=== PATIENT | female | born 1950 | race Caucasian/White ===

== ENCOUNTER 2023-04-23 14:22 | Outpatient (OUT) | payer MEDICARE, SELFPAY ==
--- NOTE | 2023-04-23 14:26 | MM_ITS ---
Patient Name: SILVANO VINCENT MR#: [id number] : 1950 Exam Date: 04/23/2023 Ordering Doctor: DR TOBIN NEAL D.O. RADIOLOGY REPORT PROCEDURE: MM TOMOSYNTHESIS SCREENING BI COMPARISON: MG MAMM BOB SCRN W CAD DIG, 01/05/2014. MG MAMM SCREEN 3D BOB CAD, 08/14/2020. INDICATIONS: Screening Calculator Name NCI Breast Cancer Risk Assessment Tool 5 Year Breast Cancer Risk 1.50% Lifetime Breast Cancer Risk 4.30% Personal Breast Cancer No Personal Ovarian Cancer No Treatments None Family Cancers None LOCATION: [facility] BREAST COMPOSITION: Heterogeneously dense,which may obscure small masses. FINDINGS: DIAGNOSTIC CATEGORY 2--BENIGN FINDING. NO CHANGE FROM COMPARISON. Scattered benign-appearing nodules are present. Scattered benign-appearing calcifications are present. Scattered benign-appearing lymph nodes are present. RIGHT BREAST: No significant suspicious finding. Linear scar marker LEFT BREAST: No significant suspicious finding. RECOMMENDATIONS: ROUTINE MAMMOGRAM AND CLINICAL EVALUATION IN 12 MONTHS. PLEASE NOTE: A NORMAL MAMMOGRAM DOES NOT EXCLUDE THE POSSIBILITY OF BREAST CANCER. A CLINICALLY SUSPICIOUS PALPABLE LUMP SHOULD BE BIOPSIED. Dictated by: Franky Jacobo MD on 04/24/2023 at 07:57 Approved by: Franky Jacobo MD on 04/24/2023 at 07:59
== END 2023-04-23 14:23 | disposition home or self-care (01) ==
LOC: MAMMO 14:22
PROVIDERS: PCP Internal Medicine; Visit Provider Internal Medicine
DX: Z12.31 Encounter for screening mammogram for malignant neoplasm of breast (principal)
CPT/HCPCS: 77063; 77067

== ENCOUNTER 2025-01-31 08:17 | Outpatient (OUT) | payer MEDICARE, SELFPAY ==
--- NOTE | 2025-01-31 08:24 | MM_ITS ---
Patient Name: SILVANO VINCENT MR#: [id number] : 1950 Exam Date: 01/31/2025 Ordering Doctor: HADLEY GATICA RADIOLOGY REPORT PROCEDURE: MM TOMOSYNTHESIS SCREENING BI COMPARISON: MM TOMOSYNTHESIS SCREENING BI, 04/23/2023. MG MAMM SCREEN 3D BOB CAD, 08/14/2020. MG MAMM BOB SCRN W CAD DIG, 01/05/2014. INDICATIONS: Screening Calculator Name NCI Breast Cancer Risk Assessment Tool 5 Year Breast Cancer Risk 1.50% Lifetime Breast Cancer Risk 3.90% Personal Breast Cancer No Personal Ovarian Cancer No Treatments None Family Cancers None LOCATION: [facility] BREAST COMPOSITION: The breasts are heterogeneously dense, which may obscure small masses. FINDINGS: RIGHT BREAST: FOCAL ASYMMETRY (finding without convex borders usually visible on two orthogonal views), characterized by central mid CC view a. Spot compression LEFT BREAST: FOCAL CALCIFICATIONS, characterized by anterior superior. Spot magnification DIAGNOSTIC CATEGORY 0--INCOMPLETE: NEED ADDITIONAL IMAGING EVALUATION. RECOMMENDATIONS: ADDITIONAL MAMMOGRAPHIC VIEWS REQUIRED: BILATERAL BREASTS - Dictated by: Mitul Freitas DO on 01/31/2025 at 12:30 Approved by: Mitul Freitas DO on 01/31/2025 at 12:39
--- OUTSIDE RECORDS SUMMARY | 2025-01-31 08:32 | XMS_ITS | CCD ---
Author Organization [facility] Care Team Providers Care Customer Service Trainer Name Role Phone VAL, DR RUDD Primary Care Unavailable OLIVERIO, DR JON Correa Admitting Unavailable OLIVERIO, DR JON Correa Attending Unavailable OLIVERIO, DR JON Correa Consulting Unavailable Lolly Del Rio Consulting Unavailable VAL, DR RUDD Admitting Unavailable VALLISA, DR RUDD Attending Unavailable VALONE, DR RUDD Primary Care Unavailable VALONE, DR RUDD Consulting Unavailable ZIEBER, DR ANAYA Correa Consulting Unavailable Laxmi Mao Unavailable Nancy Marquez MD Primary Care Provider Pump CHILD DEVELOPMENT SPECIALIST, Michelle Unavailable Nancy Marquez MD Primary Care Provider Val Bishop DO, Charles L Primary Care Provider MARKUS GRIFFIN Attending Unavailable RUSHER, MARKUS Kaur Referring Unavailable RUSHER, MARKUS Kaur Attending Unavailable PUMP, MICHELLE Attending Unavailable PUMP, MICHELLE Referring Unavailable SARAH, CORA Mota Attending Unavailable PUMP, MICHELLE Referring Unavailable NATALIA VALDEZ Attending Unavailable PUMP, MICHELLE Referring Unavailable LIUDMILA COHN Attending Unavailable PUMP, MICHELLE Referring Unavailable PUMP, MICHELLE Attending Unavailable PUMP, MICHELLE Referring Unavailable PUMP, MICHELLE Referring Unavailable SARAH, CORA Mota Attending Unavailable PUMP, MICHELLE Referring Unavailable HAILEY KIM Attending Unavailable PUMP, MICHELLE Referring Unavailable TATTERSNATALIA TRINIDAD Attending Unavailable PUMP, MICHELLE Referring Unavailable PUMP, MICHELLE Attending Unavailable PUMP, MICHELLE Attending Unavailable LAXMI EVANGELISTA Attending Unavailable PUMP, MICHELLE Referring Unavailable SARAH, CORA Mota Attending Unavailable PUMP, MICHELLE Referring Unavailable SARAH, CORA Mota Attending Unavailable PUMP, MICHELLE Referring Unavailable SARAH, CORA Mota Attending Unavailable PUMP, MICHELLE Referring Unavailable NATALIA VALDEZ Attending Unavailable PUMP, MICHELLE Referring Unavailable LIUDMILA COHN Attending Unavailable PUMP, MICHELLE Referring Unavailable LIUDMILA COHN Attending Unavailable PUMP, MICHELLE Referring Unavailable CORA SMITH Attending Unavailable PUMP, MICHELLE Referring Unavailable TATTERSNATALIA TRINIDAD Attending Unavailable PUMP, MICHELLE Referring Unavailable NATALIA VALDEZ Attending Unavailable PUMP, MICHELLE Referring Unavailable COHN, LIUDMILA Attending Unavailable PUMP, MICHELLE Referring Unavailable COHN, LIUDMILA Attending Unavailable PUMP, MICHELLE Referring Unavailable COHN, LIUDMILA Attending Unavailable PUMP, MICHELLE Referring Unavailable PUMP, MICHELLE Attending Unavailable KORI, MARKUS S Attending Unavailable NANCY MARQUEZ Referring Unavailable RUSHER, MARKUS S Referring Unavailable RUSHER, MARKUS S Attending Unavailable PUMP, MICHELLE Attending Unavailable PUMP, MICHELLE Attending Unavailable Pump COLLOID MILL OPERATOR-PATROL POLICE SERGEANT, Michelle L Primary Care Provider Nancy Marquez MD Primary Care Provider NAY GONZALEZ Referring Unavailable PUMP, MICHELLE L Primary Care Unavailable Allergies Allergy Classification Reported Allergen(s) Allergy Type Date of Onset Reaction(s) Facility Opioid Agonists (1 source) HYDROmorphone Drug Allergy 08-12-2015 [facility] (20 sources) HYDROmorphone; Translations: [HYDROMORPHONE] Drug Allergy 08-03-2023 Itching [facility] Medications Current Medications Medication Drug Class(es) Dates Sig (Normalized) Sig (Original) [id number] 200 actuat albuterol 0.09 mg/actuat metered dose inhaler (20 sources) beta2-Adrenergic Agonist Start: 02-16-2023 albuterol HFA 90 mcg/act inhaler 02/16/2023 Active Start: 02-16-2023 take 2 puff(s) by [facility] every four hours albuterol HFA 90 mcg/act inhaler inhale 2 puffs by mouth and INTO THE LUNGS every 4 hours if needed 02/16/2023 Active Albuterol Active azelastine hydrochloride 0.137 mg/actuat metered dose nasal spray (20 sources) Histamine-1 Receptor Antagonist Start: 12-17-2022 Azelastine HCl 137 MCG/SPRAY solution 12/17/2022 Active Start: 12-17-2022 take 2 spray(s) nasa l route twice daily Azelastine HCl 137 MCG/SPRAY solution instill 2 sprays into each nostril twice a day 12/17/2022 Active b complex vitamins capsule (20 sources) take 1 capsule by mouth once daily b complex vitamins capsule Take 1 capsule by mouth Daily Active biotin 5 mg oral capsule (20 sources) biotin 5000 MCG capsule Take by mouth Active Breyna 160-4.5 MCG/ACT inhaler (20 sources) Start: 2023 take 2 puff(s) by inhalation in the morning Breyna 160-4.5 MCG/ACT inhaler Inhale 2 puffs in the morning and 2 puffs before bedtime. 08/05/2023 Active 60 actuat budesonide 0.16 mg/actuat / formoterol fumarate 0.0045 mg/actuat metered dose inhaler (20 sources) Corticosteroid, beta2-Adrenergic Agonist Start: 2023 take 2 puff(s) by inhalation in the morning Breyna 160-4.5 MCG/ACT inhaler Inhale 2 puffs in the morning and 2 puffs before bedtime. 08/05/2023 Active cholecalciferol 0.05 mg oral capsule (20 sources) Vitamin D cholecalciferol (Vitamin D-3) 50 MCG (1999 UT) capsule Take by mouth Active clobetasol propionate 0.5 mg/ml topical solution (20 sources) Corticosteroid clobetasol (Alexys vate) 0.05 % external solution Apply topically 2 (two) times a day Active dexamethasone 2 mg oral tablet (8 sources) Corticosteroid Start: 2023 End: 2023 take 1 tablet by mouth in the morning dexAMETHasone (Decadron) 2 MG tablet Take 2 mg by mouth in the morning. 10/15/2023 04/09/2024 Discontinued (Therapy completed) ezetimibe 10 mg oral tablet (20 sources) Dietary Cholesterol Absorption Inhibitor End: 2024 take 1 tablet by mouth in the morning ezetimibe (ZETIA) 10 mg tablet Take 1 tablet (10 mg total) by mouth in the morning. Active famotidine 40 mg oral tablet (20 sources) Histamine-2 Receptor Antagonist Start: 2023 take 1 tablet by mouth at bedtime famotidine (Pepcid) 40 MG tablet Take 40 mg by mouth at bedtime 06/04/2023 Active fluticasone propionate 0.05 mg/actuat metered dose nasal spray (20 sources) Corticosteroid Start: 2022 fluticasone (Flonase) 50 MCG/ACT nasal spray 12/17/2022 Active Start: 12-17-2022 take 2 spray(s) nasa l route twice daily fluticasone (Flonase) 50 MCG/ACT nasal spray instill 2 sprays into each nostril twice a day 12/17/2022 Active 30 actuat fluticasone furoate 0.1 mg/actuat / umeclidinium 0.0625 mg/actuat / vilanterol 0.025 mg/actuat dry powder inhaler (20 sources) Anticholinergic, Corticosteroid, beta2-Adrenergic Agonist Start: 04-04-2023 End: 08-20-2024 Trelegy Ellipta 100-62.5-25 MCG/ACT aerosol powder 04/04/2023 08/20/2024 Discontinued (Therapy completed) Start: 04-04-2023 take 1 puff(s) by [facility] once daily Trelegy Ellipta 100-62.5-25 MCG/ACT aerosol powder inhale 1 puff by mouth and INTO THE LUNGS once daily 04/04/2023 Active folic acid 1 mg oral tablet (20 sources) folic acid (Folvite) 1 MG tablet Take by mouth Daily Active meloxicam 15 mg oral tablet (6 sources) Nonsteroidal Anti-inflammatory Drug Start: 06-08-2024 End: 06-29-2024 take 1 tablet by mouth once daily meloxicam (Mobic) 15 MG tablet Indications: Posterior tibial tendinitis of right lower extremity , Sinus tarsi syndrome of right foot Take 1 tablet (15 mg) by mouth Daily for 21 days 21 tablet 06/08/2024 06/29/2024 Active Start: 02-13-2024 End: 03-05-2024 take 1 tablet by mouth once daily meloxicam (Mobic) 15 MG tablet Indications: Plantar fasciitis Take 1 tablet (15 mg) by mouth Daily for 21 days 21 tablet 02/13/2024 03/05/2024 Active methylPREDNISolone (14 sources) Corticosteroid Start: 06-08-2024 methylPREDNISo lone (Medrol Dospak) 4 MG tablets Indications: Posterior tibial tendinitis of right lower extremity , Sinus tarsi syndrome of right foot Take as directed on package. 21 tablet 06/08/2024 Active Start: 12-17-2023 End: 04-09-2024 methylPREDNISolone (Medrol D ospak) 4 MG tablets Indications: Plantar fasciitis Take as directed on package. 21 tablet 12/17/2023 04/09/2024 Discontinued (Therapy completed) Start: 12-17-2023 methylPREDNISo lone (Medrol Dospak) 4 MG tablets Indications: Plantar fasciitis Take as directed on package. 21 tablet 12/17/2023 Active minoxidil 20 mg/ml topical solution (20 sources) Arteriolar Vasodilator minoxidil (Minoxidil for Women) 2 % external solution Apply topically 2 (two) times a day Active montelukast 10 mg oral tablet (20 sources) Leukotriene Receptor Antagonist Start: End: take 1 tablet by mouth once daily montelukast (Singulair) 10 MG tablet Indications: Asthma, unspecified asthma severity, unspecified whether complicated, unspecified whether persistent (HCC) , Seasonal allergies Take 1 tablet (10 mg) by mouth Daily 90 tablet 3 04/09/2024 04/09/2025 Active Singulair Active naproxen sodium 550 mg oral tablet (6 sources) Nonsteroidal Anti-inflammatory Drug Start: 03-30-2019 take 1 tablet by mouth twice daily as needed for pain naproxen sodium (ANAPROX) 550 mg tablet Take 1 tablet (550 mg total) by mouth 2 (two) times a day as needed for pain for up to 20 doses. 20 tablet 03/30/2019 Active pantoprazole 40 mg delayed release oral tablet (20 sources) Proton Pump Inhibitor Start: 10-24-2023 End: 10-19-2024 take 1 tablet by mouth before mealtime pantoprazole (Protonix) 40 MG EC tablet Indications: Gastroesophageal reflux disease without esophagitis Take 1 tablet (40 mg) by mouth in the morning. Take before meals. Do not crush, chew, or split.. 30 tablet 2 07/21/2024 Active predniSONE 10 mg oral tablet (16 sources) Start: 08-20-2024 End: 09-01-2024 take 4 tablets by mouth once daily, then take 3 tablets by mouth once daily, then take 2 tablets by mouth once daily, then take 1 tablet by mouth once daily predniSONE (Deltasone) 10 MG tablet Indications: Back pain of lumbar region with sciatica Take 4 tablets (40 mg) by mouth Daily for 3 days, THEN 3 tablets (30 mg) Daily for 3 days, THEN 2 tablets (20 mg) Daily for 3 days, THEN 1 tablet (10 mg) Daily for 3 days. 30 tablet 08/20/2024 09/01/2024 Active Start: 07-26-2024 End: 08-07-2024 take 4 tablets by mouth once daily, then take 3 tablets by mouth once daily, then take 2 tablets by mouth once daily, then take 1 tablet by mouth once daily predniSONE (Deltasone) 10 MG tablet Indications: Acute pain of right shoulder Take 4 tablets (40 mg) by mouth Daily for 3 days, THEN 3 tablets (30 mg) Daily for 3 days, THEN 2 tablets (20 mg) Daily for 3 days, THEN 1 tablet (10 mg) Daily for 3 days. 30 tablet 07/26/2024 08/07/2024 Active Start: 04-09-2024 End: 04-21-2024 take 4 tablets by mouth once daily, then take 3 tablets by mouth once daily, then take 2 tablets by mouth once daily, then take 1 tablet by mouth once daily predniSONE (Deltasone) 10 MG tablet Indications: Plantar fasciitis Take 4 tablets (40 mg) by mouth Daily for 3 days, THEN 3 tablets (30 mg) Daily for 3 days, THEN 2 tablets (20 mg) Daily for 3 days, THEN 1 tablet (10 mg) Daily for 3 days. 30 tablet 04/09/2024 04/21/2024 Active Start: 02-13-2024 End: 04-09-2024 predniSONE (Deltasone) 10 MG tablet Indications: Plantar fasciitis Take twice daily for 5 days, then take once daily for 5 days. 15 tablet 02/13/2024 04/09/2024 Discontinued (Therapy completed) RABEprazole sodium 20 mg delayed release oral tablet (6 sources) Proton Pump Inhibitor take 1 tablet by mouth in the morning RABEprazole (ACIPHEX) 20 mg EC tablet Take 1 tablet (20 mg total) by mouth in the morning. Active rosuvastatin calcium 5 mg oral tablet (5 sources) HMG-CoA Reductase Inhibitor Start: 10-07-19 25 End: 10-07-19 26 take 1 tablet by mouth once daily rosuvastatin (Crestor) 5 MG tablet Indications: Atherosclerosis of arteries , Elevated lipoprotein(a) Take 1 tablet (5 mg) by mouth Daily 90 tablet 3 10/06/2024 10/06/2025 Active Rosuvastatin Paco cium Active tiZANidine 4 mg oral tablet (20 sources) Central alpha-2 Adrenergic Agonist Start: 08-20-2024 End: 08-30-2024 take 1 tablet by mouth three times daily as needed for muscle spasms tiZANidine (Zanaflex) 4 MG tablet Indications: Back pain of lumbar region with sciatica Take 1 tablet (4 mg) by mouth 3 (three) times a day as needed for muscle spasms for up to 10 days 30 tablet 08/20/2024 Active Zinc Sulfate (20 sources) Zinc Sulfate (ZI NC 15 PO) Take by mouth Active Completed/Discontinued Medications Medication Drug Class(es) Dates Sig (Normalized) Sig (Original) 1 ml denosumab 60 mg/ml prefilled syringe (20 sources) RANK Ligand Inhibitor Start: 01-03-2025 End: 01-03-2025 60 mg, subcutaneous, Once, On Fri01/03/25 at 1315, For 1 dose, Bring to room temp (15-30min) in original container. Give sub-Q in upper arm, upper thigh, or abdomen. Start: 05-26-2024 End: 05-26-2024 denosumab (Prolia) injection 60 mg Start: 05-26-2024 End: 05-26-2024 inject 60 mg by subcutaneous injection once 60 mg, Subcutaneous, Once, On Fri05/26/24 at 1600, For 1 dose Start: 05-20-2024 inject 1 mL by subcu taneous injection once denosumab (Prolia) 60 MG/ML solution prefilled syringe Indications: Age-related osteoporosis without current pathological fracture Inject 1 mL (60 mg) under the skin 1 (one) time for 1 dose 1 mL 05/20/2024 Active End: 05-20-2024 denosumab (PROLIA) 60 mg/mL syringe injection every 6 (six) months. Active 2 ml ketorolac tromethamine 30 mg/ml cartridge (4 sources) Nonsteroidal Anti-inflammatory Drug, Cyclooxygenase Inhibitor Start: 08-20-2024 End: 08-20-2024 60 mg, Intramuscular, Once, On Fri08/20/24 at 0930, For 1 dose, Max daily dose: 120 mg. Max duration: 5 days total Start: 08-20-2024 End: 08-20-2024 ketorolac (Toradol) injectio n 60 mg Start: 08-20-2024 End: 08-20-2024 60 mg, Intramuscular, Once, On Fri08/20/24 at 0930, For 1 dose, Max daily dose: 120 mg. Max duration: 5 days total Start: 08-20-2024 End: 08-20-2024 ketorolac (Toradol) injectio n 60 mg Problems Active Problems Problem Classification Problem Date Documented Date Episodic/Chronic Abdominal pain (6 sources) Right lower quadrant pain; Translations: [Right flank pain] Onset: 10-19-2020 Episodic Acquired foot deformities (4 sources) Acquired varus deformity of right ankle; Translations: [Valgus deformity, not elsewhere classified, right ankle] 06-08-2024 Episodic Asthma (20 sources) Asthma; Translations: [Unspecified asthma, uncomplicated] Onset: 03-15-2003 10-21-2023 Chronic Calculus of urinary tract (20 sources) Personal history of urinary calculi; Translations: [Kidney stone] Onset: 10-23-2020 03-26-2024 Episodic Cardiac dysrhythmias (20 sources) Atrial fibrillation; Translations: [Unspecified atrial fibrillation] Onset: 03-15-2003 10-21-2023 Chronic Coagulation and hemorrhagic disorders (2 sources) Thrombophilia; Translations: [Other thrombophilia] 04-09-2024 Chronic Disorders of lipid metabolism (20 sources) Hyperlipidemia; Translations: [Hyperlipidemia, unspecified] Onset: 03-26-2024 03-26-2024 Chronic Diverticulosis and diverticulitis (1 source) Diverticulosis of large intestine without perforation or abscess without bleeding; Translations: [DVRTCLOS LG INT NO PERF/ABSC W/O BL] Onset: 10-23-2020 Chronic Esophageal disorders (20 sources) Gastro-esophageal reflux disease without esophagitis; Translations: [Gastroesophageal reflux disease without esophagitis] Onset: 10-23-2020 10-24-2023 Chronic Headache; including migraine (20 sources) Migraine; Translations: [Migraine, unspecified, not intractable, without status migrainosus] 03-26-2024 Chronic Immunizations and screening for infectious disease (2 sources) Contact with and (suspected) exposure to other viral communicable diseases; Translations: [Contact with and (suspected) exposure to other viral communicable diseases] Episodic Miscellaneous mental health disorders (2 sources) Primary insomnia; Translations: [Primary insomnia] 04-09-2024 Chronic Osteoporosis (20 sources) Age-related osteoporosis without current pathological fracture; Translations: [Osteoporosis] Onset: 08-21-2020 03-26-2024 Chronic Other acquired deformities (2 sources) Equinus contracture of the ankle; Translations: [Contracture, right ankle] 02-13-2024 Chronic Other connective tissue disease (4 sources) Plantar fasciitis; Translations: [Plantar fascial fibromatosis] 04-09-2024 Episodic Other connective tissue disease (2 sources) Pain in right foot; Translations: [Pain in right foot] 02-13-2024 Episodic Other connective tissue disease (4 sources) Tendinitis of right posterior tibial tendon; Translations: [Posterior tibial tendinitis, right leg] 06-08-2024 Episodic Other lower respiratory disease (2 sources) Interstitial lung disease; Translations: [Interstitial pulmonary disease, unspecified] 10-06-2024 Chronic Other nervous system disorders (2 sources) Difficulty walking; Translations: [Difficulty in walking, not elsewhere classified] 06-08-2024 Chronic Other non-traumatic joint disorders (2 sources) Sinus tarsi syndrome of right ankle; Translations: [Pain in right ankle and joints of right foot] 06-08-2024 Episodic Other non-traumatic joint disorders (4 sources) Instability of joint of right ankle; Translations: [Other instability, right ankle] 06-08-2024 Episodic Other screening for suspected conditions (not mental disorders or infectious disease) (2 sources) Plain X-ray result abnormal; Translations: [Abnormal findings on diagnostic imaging of other specified body structures] 08-20-2024 Chronic Other screening for suspected conditions (not mental disorders or infectious disease) (4 sources) Encounter for screening mammogram for malignant neoplasm of breast; Translations: [Patient encounter status] Onset: 08-21-2020 03-03-2024 Episodic Other skin disorders (1 source) Telogen effluvium; Translations: [Telogen effluvium] 03-04-2024 Episodic Other upper respiratory disease (20 sources) Seasonal allergy; Translations: [Other seasonal allergic rhinitis] Onset: 04-09-2024 04-09-2024 Chronic Peripheral and visceral atherosclerosis (20 sources) Atherosclerosis of aorta; Translations: [Atherosclerosis of aorta] Onset: 03-26-2024 03-26-2024 Chronic Residual codes; unclassified (4 sources) Asymptomatic menopausal state; Translations: [ASYMPTOMATIC MENOPAUSAL STATE] Onset: 08-14-2020 Episodic Residual codes; unclassified (2 sources) Postmenopausal state; Translations: [Asymptomatic menopausal state] 04-09-2024 Episodic Spondylosis; intervertebral disc disorders; other back problems (20 sources) Spondylosis; Translations: [Spondylosis, unspecified] Onset: 03-26-2024 03-26-2024 Chronic Thyroid disorders (20 sources) Hyperthyroidism; Translations: [Thyrotoxicosis, unspecified without thyrotoxic crisis or storm] 03-26-2024 Chronic Unclassified (1 source) Injection Onset: 01-03-2025 Past or Other Problems Problem Classification Problem Date Documented Da te Episodic/Chronic Cardiac dysrhythmias (20 sources) Palpitations; Translations: [Palpitations] Onset: 03-15-2003 10-21-2023 Episodic Conditions associated with dizziness or vertigo (20 sources) Benign paroxysmal positional vertigo; Translations: [Benign paroxysmal vertigo, right ear] Onset: 12-01-2023 Resolved: 05-26-2024 12-01-2023 Episodic Joint disorders and dislocations; trauma-related (20 sources) Derangement of right knee; Translations: [Unspecified internal derangement of right knee] Onset: 10-21-2023 Resolved: 10-24-2023 10-24-2023 Chronic Other connective tissue disease (20 sources) Disorder of head; Translations: [Other enthesopathies, not elsewhere classified] Onset: 03-26-2024 03-26-2024 Episodic Other connective tissue disease (20 sources) Muscle pain; Translations: [Myalgia, unspecified site] Onset: 03-26-2024 03-26-2024 Episodic Other gastrointestinal disorders (20 sources) Stool DNA-based colorectal cancer screening positive; Translations: [Other fecal abnormalities] Onset: 03-26-2024 Resolved: 04-09-2024 03-26-2024 Episodic Other non-traumatic joint disorders (20 sources) Pain in right shoulder; Translations: [Pain in joint, shoulder region] Onset: 07-28-2024 07-28-2024 Episodic Residual codes; unclassified (20 sources) Insomnia; Translations: [Insomnia, unspecified] Onset: 03-15-2003 10-21-2023 Episodic Spondylosis; intervertebral disc disorders; other back problems (20 sources) Cervical radiculopathy; Translations: [Radiculopathy, cervical region] Onset: 07-28-2024 07-28-2024 Episodic Viral infection (1 source) COVID-19 Results Test Name Value Interpretation Reference Range Facility CT ABDOMEN PELVIS WO IV CONT Laura 08-26-2024 CT ABDOMEN PELVIS WO IV CONTRAST EXAM: CT Abdomen Pelvis without IV Contrast. REASON FOR EXAM: Right sided low abdominal pain with hematuria, frequent urination. COMPARISON: CT abdomen and pelvis August 03, 2023. TECHNIQUE: Multiplanar noncontrast images of the abdomen and pelvis were obtained. FINDINGS: Lung bases, base of the heart, pericardium: 5 mm groundglass nodule right medial lung base unchanged. Liver: No abnormalities by CT. Gallbladder/ Biliary tree: No calcified stones or ductal dilatation. Spleen, pancreas: No abnormalities by CT. Adrenals, kidneys: No abnormalities by CT. Retroperitoneum: Atherosclerosis of the aorta. Scattered subcentimeter noncalcified retroperitoneal lymph nodes. No ureteral dilatation or visible stone. Small bowel: No dilatation, air-fluid level, free air or ascites is present. Appendix: Multiple appendicoliths in a nondistended appendix. Large Bowel: Moderate amount of stool present throughout the course of the colon. Mild diverticulosis coli of the sigmoid colon. No inflammatory changes. Pelvis: Bladder is without focal abnormality. Gynecologic: The uterus and adnexa are not enlarged. Osseous structures, regional soft tissues: Mild lumbar spondylosis. Phlebolithic type calcifications in the pelvis. IMPRESSION CT Abdomen: 1. No CT evidence of nephrolithiasis or obstructive uropathy. 2. Atherosclerosis. 3. Subtle 5 mm groundglass opacity in the right medial basilar lung. This is unchanged from previous. Follow-up based on Fleischner criteria below. 4. Obstipation of the colon. 5. Diverticulosis coli. Fleischner 2017 guidelines Solid nodules Solitary nodule size: <6 mm * low risk patients: no follow-up needed * high risk patients: optional CT at 12 months Solitary nodule size: 6-8 mm * low risk patients: follow-up at 6-12 months, then consider further follow-up at 18-24 months * high risk patients: initial follow-up CT at 6-12 months and then at 18-24 months if no change Solitary nodule size: >8 mm * either low or high risk patients * consider follow-up CT at 3 months, and/or CT-PET, and/or biopsy Multiple nodules size: <6 mm * low risk patients: no routine follow-up * high risk patients: optional CT at 12 months Multiple nodules size: 6-8 mm * low risk patients: follow-up at 3-6 months, then consider further follow-up at 18-24 months * high risk patients: follow-up at 3-6 months, then at 18-24 months if no change Multiple nodules size: >8 mm * low risk patients: follow-up at 3-6 months, then consider further follow-up at 18-24 months * high risk patients: follow-up at 3-6 months, then at 18-24 months if no change Note: newly detected indeterminate nodule in persons 35 years of age or older. * low risk patients: minimal or absent history of smoking and or other known risk factors * high risk patients: history of smoking or of other known risk factors (e.g. first degree relative with lung cancer, or exposure to asbestos, radon, uranium) * if a nodule up to 8 mm is partly solid or is ground glass further follow-up is required after 24 months to exclude possible slow growing adenocarcinoma (LEOBARDO) Subsolid nodules Solitary pure ground-glass nodule * nodule size <6mm * no CT follow-up required * nodule size e6mm * follow up CT at 6-12 months, then every 2 years until 5 years Solitary part-solid nodule * nodule size <6mm * no CT follow-up required * nodule size e6mm * follow-up CT at 3-6 months * if unchanged, and solid component remains <6mm, then annual follow-up for 5 years Multiple subsolid nodules * nodule size <6mm * follow-up CT at 3-6 months * consider further follow-up at 2 and 4 years if stable * nodule size e6mm * follow-up CT at 3-6 months * subsequent management based on the most suspicious nodule(s) All CT scans at this institution are performed using dose optimization techniques as appropriate for the performed exam including the following: Automated exposure control Adjustment of the mA and/or kV according to patient size Use of iterative reconstruction technique This report is generated using voice recognition reporting (ONE Change). On occasion, [employer] erroneously drops words from the report or replaces the spoken word with a similar sounding word. Please call with any questions/concerns regarding the report. Dictated and transcribed 08/27/2024tm This report has been electronically signed and approved by the interpreting radiologist. Normal Not Available XR LUMBAR SPINE 4+ VIEWS WIT H FLEXION EXTENSIONon 08-20-2024 XR LUMBAR SPINE 4+ VIEWS WITH FLEXION EXTENSION EXAM: XR Lumbar Spine with Flexion Extension, Seven Views. REASON FOR EXAM: Pain bilateral sciatic area, right side pain, pain radiates into bilateral legs. COMPARISON: None FINDINGS: Seven images. For counting purposes, there are five nonrib-bearing type lumbar vertebral bodies. The pedicles are symmetric. The sacral struts and sacroiliac joints are preserved. Facet arthrosis from L3-L4 to L5-S1. No spondylolysis. There is anterolisthesis of approximately 2 to 3 mm of L3 on L4 and L4 on L5. There is no height loss or angulation. Mild anterior spurring from L3-L5. Atherosclerosis noted. There is no significant change in position from neutral to flexion. Slight reduction at L3-L4 and L4-L5 in extension. Vague densities over the right renal shadow are present in the frontal view. These do not persist on the oblique or other views likely prominent costochondral calcifications or nephroliths. IMPRESSION Lumbar Spine: 1. Spondylosis. Grade 1 spondylolisthesis of L3 on L4 and L4 on L5. 2. Possible right nephrolithiasis. IMPRESSION Flexion and Extension: There is slight reduction, 1 to 2 mm of motion, of spondylolisthesis at L3-L4 and L4-L5. This report is generated using voice recognition reporting (ONE Change). On occasion, [employer] erroneously drops words from the report or replaces the spoken word with a similar sounding word. Please call with any questions/concerns regarding the report. Dictated and transcribed 08/20/2024/ This report has been electronically signed and approved by the interpreting radiologist. Normal Not Available XR SHOULDER 2+ VIEWS RIGHTon 07-26-2024 XR SHOULDER 2+ VIEWS RIGHT EXAM: XR SHOULDER 2+ VIEWS RIGHT REASON FOR STUDY: Chronic right shoulder pain, no injury COMPARISON: None FINDINGS: Alignment: Appropriate Joint spaces: Mild joint space narrowing at the acromioclavicular joint. 2 mm subluxation superiorly at the distal clavicle. The glenohumeral joint appears normal. Fractures: None Soft Tissues: No apparent soft tissue abnormality. Mild sclerosis at the distal right first rib at the costochondral junction. IMPRESSION: Mild degenerative changes of the acromioclavicular joint and slight superior subluxation of the distal clavicle measuring 2 mm. Dictated on: 07/26/2024 8:53 AM This report has been electronically signed and approved by the interpreting Radiologist. Normal Not Available XR Foot - right 3 [facility] Result: AP, lateral oblique, lateral views are weight-bearing. Decreased calcaneal inclination, increased talar declination. Decreased bone mineral density. Approximately 40 percent talar head uncoverage. No fractures or dislocations noted. There is some joint space narrowing and subchondral sclerosis of the posterior subtalar joint. Small enthesophyte at the insertion of the plantar fascia. Polybioticscar e Radiology Study observation (narrative) Sodbuster COVID + FLU Quick Testingon 07-07-2022 SARS-CoV-2 (COVID-19) RNA STEVEN+probe Ql (Unsp spec) Positive [facility] Other COVID + FLU Quick Testing Negative [facility] Other MRI Knee w/o Righton MRI Knee w/o Right History: Anterior medial knee pain. Internal derangement. Technique: Multiplanar multisequence MRI of the knee was performed without contrast. Comparison: Radiograph since the knee 02/13/2022 Findings: Quadriceps and patellar tendons are intact. Small joint effusion. Anterior and posterior cruciate ligaments are intact. The medial collateral ligament, lateral collateral ligament, and popliteus myotendinous unit are intact. There is an 8 mm calcification superficial to the proximal most fibers of the medial collateral ligament with mild adjacent soft tissue edema. Horizontal tear of the body through posterior horn of the medial meniscus. Horizontal tear of the body of the lateral meniscus. Small focus of subcortical bone marrow edema of the superior median patellar ridge secondary to a few tiny full-thickness cartilage defects. Popliteal fossa structures are intact. Bess's cyst measures approximately 2.5 cm in AP dimension by 2 cm in transverse dimension by 7 cm in craniocaudal dimension. IMPRESSION: Horizontal tear of the body through posterior horn of the medial meniscus. Horizontal tear of the body of the lateral meniscus. There is an 8 mm calcification superficial to the proximal most fibers of the medial collateral ligament with mild adjacent soft tissue edema. Report reported and signed by Vikash Aviles on 02/21/2022 1054 Normal [facility] CBC AUTO DIFFon 10-19-2020 BASO # 0.1 103/ul Normal 0.0-0.1 [facility] Comment on above: Performed By: #### C BC #### [facility] [address] [id number] Neelam Lisa Basophils/100 WBC (Bld) 0.7 % Normal 0.2-2.0 [facility] Comment on above: Performed By: #### C BC #### [facility] [address] [place], [place] [id number] Neelam Lisa EO # 0.2 103/ul Normal 0.0-0.7 [facility] Comment on above: Performed By: #### C BC #### [facility] [address] [id number] Neelam Lisa Eosinophils/100 WBC (Bld) 3.3 % Normal 0.9-7.0 [facility] Comment on above: Performed By: #### C BC #### [facility] [address] [place], [place] [id number] Neelam Lisa Erythrocyte distribution width (RBC) [Ratio] 13.9 % Normal 11.0-15.0 [facility] Comment on above: Performed By: #### C BC #### [facility] [address] [id number] Neelam Lisa Hematocrit (Bld) [Volume fraction] 38.4 % Normal 36.0-48.0 [facility] Comment on above: Performed By: #### C BC #### [facility] [address] [place], [place] [address] Neelam Lisa Hemoglobin (Bld) [Mass/Vol] 12.5 g/dL Normal 12.0-16.0 [facility] Comment on above: Performed By: #### C BC #### [facility] [address] [id number] Neelam Lisa IG # 0.01 10e3/ul Normal 0.00-0.03 [facility] Comment on above: Performed By: #### C BC #### [facility] [address] [address] Neelam Lisa IG % 0.1 % Normal 0.0-0.5 [facility] Comment on above: Performed By: #### C BC #### [facility] [address] [place] [address] Neelam Lisa LYMPH # 3.4 103/ul Normal 1.2-3.8 [facility] Comment on above: Performed By: #### C BC #### [facility] [address] [place] [address] Neelam Lisa Lymphocytes/100 WBC (Bld) 48.7 % Normal 20.5-60.0 [facility] Comment on above: Performed By: #### C BC #### [facility] [address] [place] [address] Neelam Lisa MANUAL DIFF REQ NO Normal [facility] Comment on above: Performed By: #### C BC #### [facility] [address] [place] [address] Neelam Lisa MCH (RBC) [Entitic mass] 29.0 pg Normal 26.7-34.0 [facility] Comment on above: Performed By: #### C BC #### [facility] [address] [place] [address] Neelam Lisa MCHC (RBC) [Mass/Vol] 32.6 g/dL Normal 29.9-35.2 [facility] Comment on above: Performed By: #### C BC #### [facility] [address] [place] [address] Neelam Lisa MCV (RBC) [Entitic vol] 89.1 fL Normal 81.0-99.0 [facility] Comment on above: Performed By: #### C BC #### [facility] [address] [place], [place] [id number] Neelamdana Lyonen MONO # 0.6 103/ul Normal 0.3-0.8 [facility] Comment on above: Performed By: #### C BC #### [facility] [address] [place], [place] [id number] Neelam Lyonen Monocytes/100 WBC (Bld) 8.4 % Normal 1.7-12.0 [facility] Comment on above: Performed By: #### C BC #### [facility] [address] [place], [place] [id number] Neelam Lisa NEUT # 2.7 103/ul Normal 1.4-6.5 [facility] Comment on above: Performed By: #### C BC #### [facility] [address] [place], [place] [id number] Neelam Lyonen Neutrophils/100 WBC (Bld) 38.8 % Critically low 43.0-75.0 [facility] Comment on above: Performed By: #### C BC #### [facility] [address] [place], [place] [id number] Neelamdana Gonzlaez Platelet mean volume (Bld) [Entitic vol] 9.3 fL Critically low 9.5-13.5 [facility] Comment on above: Performed By: #### C BC #### [facility] [address] [place], [place] [address] Neelam Lisa PLT 324 103/ul Normal 150-450 [facility] Comment on above: Performed By: #### C BC #### [facility] [address] [place], [place] [address] Neelam Lisa RBC 4.31 106/ul Normal 4.20-5.40 [facility] Comment on above: Performed By: #### C BC #### [facility] [address] [place], [place] [address] Neelam Lisa WBC 6.9 103/ul Normal 4.0-11.0 [facility] Comment on above: Performed By: #### C BC #### [facility] [address] [place], [place] [id number] Neelam Lisa CT ABD/PELVIS WO CONon 10-19 CT ABD/PELVIS WO CON EXAM: CT ABD/PELVIS WO CON REASON FOR EXAM: Female, 70 years, CALCULUS OF KIDNEY. TECHNIQUE: Computed tomography of the abdomen and pelvis is performed in the axial projection from the lung bases to the pubic symphysis. Sagittal and coronal reconstructed images are performed. Dose reduction techniques were achieved by using automated exposure control and/or adjustment of mA and/or KVP according to patient size and/or use of iterative reconstruction technique. Study was performed without IV contrast. Study was performed without oral contrast. COMPARISON: 10/23/2011 FINDINGS: Lung bases: The lung bases are clear. There is no pleural effusion. The visualized portions of the heart are unremarkable. The lack of intravenous contrast slightly limits evaluation of the solid abdominal organs. Liver: The liver is normal. Gallbladder: The gallbladder is normal. Spleen: The spleen is normal. There is a small splenule. Pancreas: The pancreas is normal. Adrenal glands: The adrenal glands are normal bilaterally. Right kidney: The kidney is normal in size. There is no renal calculus or hydronephrosis. Left kidney: The kidney is normal in size. There is no renal calculus or hydronephrosis. Stomach: The stomach is normal. Small bowel: The small bowel is normal. Large bowel: There are colon diverticula, without surrounding inflammatory changes. Appendix: There has been an appendectomy. Aorta: There are mild atherosclerotic calcifications of the abdominal aorta. IVC: The IVC is normal. Retroperitoneum: Normal retroperitoneum. Bladder: The bladder is normal. Pelvic organs: The uterus is atrophic. Abdominal wall: Normal abdominal wall. Osseous structures: Normal bony structures. IMPRESSION: No bowel obstruction or acute renal pathology. There appears to have been an appendectomy. Mild diverticulosis, without acute diverticulitis. Electronically authenticated by: LOLLY DEL RIO Date: 2020-10-19 20:52 Normal [facility] ER URINE PROFILEon 1 Bilirubin Ql (U) Negative Normal NEGATIVE [facility] Comment on above: Performed By: #### U MICRO, ERUR #### [facility] [address] [place], [place] [address] Neelam Gonzalez Clarity (U) CLEAR Normal CLEAR [facility] Comment on above: Performed By: #### U MICRO, ERUR #### [facility] [address] [place] [address] Neelam Lisa Color (U) LT. YELLOW Normal YELLOW [facility] Comment on above: Performed By: #### U MICRO, ERUR #### [facility] [address] [place] [address] Neelam Lisa ERUAHD A micrscopic examination will be performed if indicated. Normal [facility] Comment on above: Performed By: #### U MICRO, ERUR #### [facility] [address] [place] [address] Neelam Lisa Glucose Ql (U) Negative Normal NEGATIVE [facility] Comment on above: Performed By: #### U MICRO, ERUR #### [facility] [address] [place] [address] Neelam Lisa Hemoglobin Ql (U) Negative Normal NEGATIVE [facility] Comment on above: Performed By: #### U MICRO, ERUR #### [facility] [address] [place] [address] Neelam Lisa Ketones Ql (U) Negative Normal NEGATIVE [facility] Comment on above: Performed By: #### U MICRO, ERUR #### [facility] [address] [place] [address] Neelam Lisa LEUKOCYTES TRACE Abnormal NEGATIVE [facility] Comment on above: Performed By: #### U MICRO, ERUR #### [facility] [address] [place] [address] Neelam Lisa Nitrite Ql (U) Negative Normal NEGATIVE [facility] Comment on above: Performed By: #### U MICRO, ERUR #### [facility] [address] [place] [address] Neelam Lisa pH (U) 6.0 [pH] Normal 5-9 [facility] Comment on above: Performed By: #### U MICRO, ERUR #### [facility] [address] [place] [address] Neelam Lisa SPEC GRAVITY <=1.005 Abnormal 1.005-<=1.025 [facility] Comment on above: Performed By: #### U MICRO, ERUR #### [facility] [address] [place] [address] Neelamdana Lyonen UA PROTEIN Negative Normal NEGATIVE/ TRACE [facility] Comment on above: Performed By: #### U MICRO, ERUR #### [facility] [address] [place] [address] Neelamdana Lyonen UR MICRO IND INDICATED Normal [facility] Comment on above: Performed By: #### U MICRO, ERUR #### [facility] [address] [place], [place] [address] Neelam Gonzalez Urobilinogen Qn (U) 0.2 {Sánchez'U}/dL Normal 0.2 - 1.0 [facility] Comment on above: Performed By: #### U MICRO, ERUR #### [facility] [address] [place] [address] Neelam Gonzalez PROF 14(COMP METB)on 021 Albumin [Mass/Vol] 4.1 g/dL Normal 3.5-5.0 [facility] Comment on above: Performed By: #### C MP #### [facility] [address] [place], [place] [address] Neelamdana Gonzalez Albumin/Globulin [Mass ratio] 1.2 {ratio} Normal [facility] Comment on above: Performed By: #### C MP #### [facility] [address] [place] [address] Neelam Lisa ALP [Catalytic activity/Vol] 68 U/L Normal 38-126 [facility] Comment on above: Performed By: #### C MP #### [facility] [address] [place] [address] Neelam Lisa ALT [Catalytic activity/Vol] 28 U/L Normal 9-52 [facility] Comment on above: Performed By: #### C MP #### [facility] [address] [place] [address] Neelam Lisa Anion gap [Moles/Vol] 14.8 mmol/L Normal [facility] Comment on above: Performed By: #### C MP #### [facility] [address] [place] [address] Neelam Lisa AST [Catalytic activity/Vol] 17 U/L Normal 14-36 [facility] Comment on above: Performed By: #### C MP #### [facility] [address] [id number] Neelam Lisa Bilirubin [Mass/Vol] 0.2 mg/dL Normal 0.2-1.3 [facility] Comment on above: Performed By: #### C MP #### [facility] [address] [id number] Neelam Lisa Calcium [Mass/Vol] 9.2 mg/dL Normal 8.4-10.2 [facility] Comment on above: Performed By: #### C MP #### [facility] [address] [address] Neelam Lisa Chloride [Moles/Vol] 108 mmol/L Critically high 98-107 [facility] Comment on above: Performed By: #### C MP #### [facility] [address] [address] Neelam Lisa CO2 [Moles/Vol] 26.8 mmol/L Normal 22.0-30.0 [facility] Comment on above: Performed By: #### C MP #### [facility] [address] [id number] Neelam Lisa Creatinine [Mass/Vol] 0.79 mg/dL Normal 0.52-1.04 [facility] Comment on above: Performed By: #### C MP #### [facility] [address] [address] Neelam Lisa EGFR-AF VINCENTIAN >60 Normal >=60 [facility] Comment on above: Performed By: #### C MP #### [facility] [address] [id number] Neelam Lisa EGFR-NON AF VINCENTIAN >60 Normal >=60 [facility] Comment on above: Performed By: #### C MP #### [facility] [address] [id number] Neelam Lisa Globulin (S) [Mass/Vol] 3.4 g/dL Normal [facility] Comment on above: Performed By: #### C MP #### [facility] [address] [id number] Neelam Lisa Glucose [Mass/Vol] 119 mg/dL Critically high 74-106 [facility] Comment on above: Performed By: #### C MP #### [facility] [address] [place], [place] [address] Neelam Lisa Potassium [Moles/Vol] 3.6 mmol/L Normal 3.4-5.0 [facility] Comment on above: Performed By: #### C MP #### [facility] [address] [place] [address] Neelam Lisa Protein [Mass/Vol] 7.5 g/dL Normal 6.1-8.2 [facility] Comment on above: Performed By: #### C MP #### [facility] [address] [place] [address] Neelam Lisa Sodium [Moles/Vol] 146 mmol/L Critically high 137-145 [facility] Comment on above: Performed By: #### C MP #### [facility] [address] [place] [address] Neelam Lisa Urea nitrogen [Mass/Vol] 13.0 mg/dL Normal 7.0-17.0 [facility] Comment on above: Performed By: #### C MP #### [facility] [address] [place], [place] [address] Neelam Lisa Urea nitrogen/Creatini ne [Mass ratio] 16.5 mg/mg Normal [facility] Comment on above: Performed By: #### C MP #### [facility] [address] [place], [place] [address] Neelam Lisa URINE MICROSCOPIC ONLYon BACTERIA TRACE Abnormal NONE SEEN [facility] Comment on above: Performed By: #### U MICRO, ERUR #### [facility] [address] [place], [place] [address] Neelam Lisa Bacteria identified Cx Nom (U) NOT INDICATED Normal [facility] Comment on above: Performed By: #### U MICRO, ERUR #### [facility] [address] [place], [place] [address] Neelam Lisa CAST NONE SEEN Normal NONE SEEN [facility] Comment on above: Performed By: #### U MICRO, ERUR #### [facility] [address] [address] Neelam Lisa Crystals LM Nom (Urine sed) NONE SEEN Normal NONE SEEN [facility] Comment on above: Performed By: #### U MICRO, ERUR #### [facility] [address] [id number] Neelam Lisa Epithelial cells LM Ql (Urine sed) RARE Normal NONE SEEN /RARE [facility] Comment on above: Performed By: #### U MICRO, ERUR #### [facility] [address] [place], [place] [address] Neelam Lisa MUCOUS NONE SEEN Normal NONE SEEN [facility] Comment on above: Performed By: #### U MICRO, ERUR #### [facility] [address] [place], [place] [address] Neelam Lisa RBC NONE SEEN Abnormal 0-2 [facility] Comment on above: Performed By: #### U MICRO, ERUR #### [facility] [address] [id number] Neelam Lisa WBC 0-2 Abnormal NONE SEEN [facility] Comment on above: Performed By: #### U MICRO, ERUR #### [facility] [address] [id number] Neelam Lisa MG MAMM SCREEN 3D MACIEL CADon 08-14-2020 MG MAMM SCREEN 3D MACIEL CAD Patient: VERO VINCENT Exam Date: 08/14/2020 : 1950 Gender:F Ordering : DR JUAN NEAL D.O. Admission #: [id number] Family : Order #: [id number] CLICK HERE TO VIEW EXAM RADIOLOGY REPORT PROCEDURE: MAMMOGRAM SCREENING 3D BILATERAL CAD COMPARISON: MG MAMM MACIEL SCRN W CAD DIG, 01/05/2014. INDICATIONS: Screening mammography Calculator Name NCI Breast Cancer Risk Assessment Tool 5 Year Breast Cancer Risk 1.40% Lifetime Breast Cancer Risk 5.00% Personal Breast Cancer No Personal Ovarian Cancer No Treatments None Family Cancers None LOCATION: [facility] BREAST COMPOSITION: Heterogeneously dense, which may obscure small masses. FINDINGS: DIAGNOSTIC CATEGORY 2--BENIGN FINDING: RIGHT BREAST: No significant suspicious finding. Scattered benign-appearing calcifications are present. No significant change has occurred. LEFT BREAST: No significant suspicious finding. Scattered benign-appearing calcifications are present. No significant change has occurred. RECOMMENDATIONS: ROUTINE MAMMOGRAM AND CLINICAL EVALUATION IN 12 MONTHS. PLEASE NOTE: A NORMAL MAMMOGRAM DOES NOT EXCLUDE THE POSSIBILITY OF BREAST CANCER. A CLINICALLY SUSPICIOUS PALPABLE LUMP SHOULD BE BIOPSIED. Dictated by: Anaya Toledo M.D. on 08/14/2020 at 16:21 Approved by: Anaya Toledo M.D. on 08/14/2020 at 16:26 Normal [facility] XR DEXA BONE DENSITYon 08-14 XR DEXA BONE DENSITY EXAMINATION: XR DEXA BONE DENSITY HISTORY: Screening for osteoporosis COMPARISON: No relevant comparison available. TECHNIQUE: Dual-energy X-ray absorptiometry (DXA) was performed. FINDINGS: SPINE ANALYSIS: Average bone mineral density is 0.931 g/cm2. T-score (standard deviation relative to young adult mean): -2.1 . HIP ANALYSIS: Lowest bone mineral density is within the right femoral trochanter, 0.5-0 g/cm2. T-score (standard deviation relative to young adult mean): -2.9 . IMPRESSION: [employer] Classification: Osteoporosis - High Fracture Risk Electronically authenticated by: ANAYA TOLEDO Date: 2020-08-14 10:37 Normal [facility] Vital Signs Date Time Vital Sign Value Performing Clinician Facility 01-03-2025 13:02-0400 Body mass index (BMI) [Ratio] 23.47 kg/m2 Pfo 5 [facility] 01-03-2025 13:02-0400 [facility] temperature 97.7 [degF[facility] 01-03-2025 13:02-0400 Body weight 66.95 kg Pfo 5 [facility] 01-03-2025 13:02-0400 Diastolic blood pressure 56 mm[Hg] Pfo 5 [facility] 01-03-2025 13:02-0400 Heart rate 84 /min Pfo 5 [facility] 01-03-2025 13:02-0400 Respiratory rate 16 /min Pfo 5 [facility] 01-03-2025 13:02-0400 SaO2% (BldA) [Mass fraction] 98 % Pfo 5 [facility] 01-03-2025 13:02-0400 Systolic blood pressure 135 mm[Hg] Pfo 5 [facility] 10-06-2024 10:02-0400 Diastolic blood pressure 78 mm[Hg] Michelle Pump CHILD DEVELOPMENT SPECIALIST Work Phone: [facility] 10-06-2024 10:02-0400 Systolic blood pressure 120 mm[Hg] Michelle Pump CHILD DEVELOPMENT SPECIALIST Work Phone: [facility] 10-06-2024 09:40-0400 Heart rate 92 /min Michelle Pump CHILD DEVELOPMENT SPECIALIST Work Phone: [facility] 08-20-2024 08:36-0400 Diastolic blood pressure 90 mm[Hg] Michelle Pump CHILD DEVELOPMENT SPECIALIST Work Phone: [facility] 08-20-2024 08:36-0400 Heart rate 92 /min Michelle Pump CHILD DEVELOPMENT SPECIALIST Work Phone: [facility] 08-20-2024 08:36-0400 Systolic blood pressure 124 mm[Hg] Michelle Pump CHILD DEVELOPMENT SPECIALIST Work Phone: [facility] 07-06-2024 14:46-0500 Body height 167.6 cm Markus Rusher DPM Work Phone: [facility] 07-06-2024 14:46-0500 Body mass index (BMI) [Ratio] 23.4 kg/m2 Markus Rusher DPM Work Phone: [facility] 07-06-2024 14:46-0500 Body weight 65.77 kg Markus Rusher DPM Work Phone: [facility] 06-08-2024 14:54-0500 Body height 167.6 cm Markus Rusher DPM Work Phone: [facility] 06-08-2024 14:54-0500 Body mass index (BMI) [Ratio] 23.4 kg/m2 Markus Rusher DPM Work Phone: [facility] 06-08-2024 14:54-0500 Body weight 65.77 kg Markus Rusher DPM Work Phone: [facility] 05-26-2024 15:34-0500 Diastolic blood pressure 84 mm[Hg] Michelle Pump CHILD DEVELOPMENT SPECIALIST Work Phone: [facility] 05-26-2024 15:34-0500 Heart rate 76 /min Michelle Pump CHILD DEVELOPMENT SPECIALIST Work Phone: [facility] 05-26-2024 15:34-0500 Systolic blood pressure 130 mm[Hg] Michelle Pump CHILD DEVELOPMENT SPECIALIST Work Phone: [facility] 04-09-2024 08:19-0500 Body height 166.4 cm Michelle Pump CHILD DEVELOPMENT SPECIALIST Work Phone: [facility] 04-09-2024 08:19-0500 Body mass index (BMI) [Ratio] 23.83 kg/m2 Michelle Pump CHILD DEVELOPMENT SPECIALIST Work Phone: [facility] 04-09-2024 08:19-0500 Body weight 65.95 kg Michelle Pump CHILD DEVELOPMENT SPECIALIST Work Phone: [facility] 04-09-2024 08:19-0500 Diastolic blood pressure 72 mm[Hg] Michelle Pump CHILD DEVELOPMENT SPECIALIST Work Phone: [facility] 04-09-2024 08:19-0500 Heart rate 76 /min Michelle Pump CHILD DEVELOPMENT SPECIALIST Work Phone: [facility] 04-09-2024 08:19-0500 Systolic blood pressure 132 mm[Hg] Michelle Pump CHILD DEVELOPMENT SPECIALIST Work Phone: [facility] 02-13-2024 08:55-0400 Body height 167.6 cm Markus Griffin DPM Work Phone: [facility] 02-13-2024 08:55-0400 Body mass index (BMI) [Ratio] 23.15 kg/m2 Markus Griffin DPM Work Phone: [facility] 02-13-2024 08:55-0400 Body weight 65.05 kg Markus Griffin DPM Work Phone: [facility] 07-07-2022 09:50-0500 Body height 170.18 cm Laxmi Mao Other [facility] Other 07-07-2022 09:50-0500 Body mass index (BMI) [Ratio] 21.77 kg/m2 Laxmi Mao Other [facility] Other 07-07-2022 09:50-0500 Body temperature 99.5 [degF] Laxmi Mao Other [facility] Other 07-07-2022 09:50-0500 Body weight 63.05 kg Laxmi Mao Other [facility] Other 07-07-2022 09:50-0500 Diastolic blood pressure 75 mm[Hg] Laxmi Mao Other [facility] Other 07-07-2022 09:50-0500 Respiratory rate 18 /min Laxmi Mao Other [facility] Other 07-07-2022 09:50-0500 SaO2% (BldA) [Mass fraction] 97 % Laxmi Mao Other [facility] Other 07-07-2022 09:50-0500 Systolic blood pressure 130 mm[Hg] Laxmi Mao Other [facility] Other Encounters Encounter Date Encounter Type Care Provider Facility Start: 01-03-2025 End: 01-03-2025 [facility] Comment on above: Senile osteoporosis (Primary Dx) Start: 12-30-2024 End: 12-30-2024 Orders Only Nay Gonzalez APRN-PATROL POLICE SERGEANT Work Phone: INTER[facility] Comment on above: Encounter for prepro cedural laboratory examination Start: 12-30-2024 End: 12-30-2024 Patient encounter status Nay Gonzalez COLLOID MILL OPERATOR-PATROL POLICE SERGEANT Work Phone: [facility] Start: 12-23-2024 End: 12-23-2024 Telephone encounter Nancy Marquez MD Other Phone: [facility] Start: 12-07-2024 End: 12-07-2024 Telephone encounter Nancy Marquez MD Other Phone: [facility] Start: 12-02-2024 End: 12-02-2024 Orders Only Nay Gonzalez COLLOID MILL OPERATOR-PATROL POLICE SERGEANT Work Phone: [facility] - [facility] Oncology Comment on above: Senile osteoporosis (Primary Dx) Start: 10-06-2024 End: 10-06-2024 Bamboo flowsheet Michelle Pump CHILD DEVELOPMENT SPECIALIST Work Phone: [facility] Start: 10-06-2024 End: 10-06-2024 Bamboo flowsheet Michelle Pump CHILD DEVELOPMENT SPECIALIST Work Phone: [facility] Start: 10-06-2024 End: 10-06-2024 Office outpatient visit 15 minutes Michelle Pump CHILD DEVELOPMENT SPECIALIST Work Phone: [facility] Comment on above: Atherosclerosis of a rteries (Primary Dx); Atherosclerosis of aorta (CMS/HCC); Elevated lipoprotein(a) (CMS/HCC); Atrial fibrillation, unspecified type (CMS/HCC); Age-related osteoporosis without current pathological fracture (CMS/HCC); Lumbar radiculopathy, acute; Interstitial pulmonary disease, unspecified Start: 10-06-2024 End: 10-06-2024 ambulatory MICHELLE PUMP Not Available Start: 10-01-2024 End: 10-01-2024 Bamboo flowsheet Liudmila Cohn CLEAN ROOM ASSEMBLER Work Phone: [facility] Start: 10-01-2024 End: 10-01-2024 Bamboo flowsheet Liudmila Cohn CLEAN ROOM ASSEMBLER Work Phone: [facility] Start: 10-01-2024 End: 10-01-2024 ambulatory Liudmila Cohn CLEAN ROOM ASSEMBLER Work Phone: [facility] Comment on above: Lumbar radiculopathy , acute (Primary Dx) Start: 09-29-2024 End: 09-29-2024 Bamboo flowssantiago Cohn CLEAN ROOM ASSEMBLER Work Phone: [facility] Start: 09-29-2024 End: 09-29-2024 Bamboo flowssantiago Cohn CLEAN ROOM ASSEMBLER Work Phone: [facility] Start: 09-29-2024 End: 09-29-2024 ambulatory Liudmila Cohn CLEAN ROOM ASSEMBLER Work Phone: [facility] Comment on above: Lumbar radiculopathy , acute (Primary Dx) Start: 09-27-2024 End: 09-27-2024 Bamboo nancy Cohn CLEAN ROOM ASSEMBLER Work Phone: [facility] Start: 09-27-2024 End: 09-27-2024 Bamboo flowssantiago Cohn CLEAN ROOM ASSEMBLER Work Phone: [facility] Start: 09-27-2024 End: 09-27-2024 ambulatory Liudmila Cohn CLEAN ROOM ASSEMBLER Work Phone: [facility] Comment on above: Lumbar radiculopathy , acute (Primary Dx) Start: 09-23-2024 End: 09-23-2024 Bamboo flowsheet Natalia Tattersall CLEAN ROOM ASSEMBLER [facility] Start: 09-23-2024 End: 09-23-2024 Bamboo flowsheet Natalia Tattersall CLEAN ROOM ASSEMBLER [facility] Start: 09-23-2024 End: 09-23-2024 ambulatory Natalia Tattersall CLEAN ROOM ASSEMBLER [facility] Comment on above: Lumbar radiculopathy , acute (Primary Dx) Start: 09-21-2024 End: 09-21-2024 Bamboo flowsheet Natalia Tattersall CLEAN ROOM ASSEMBLER [facility] Start: 09-21-2024 End: 09-21-2024 Bamboo flowsheet Natalia Tattersall CLEAN ROOM ASSEMBLER [facility] Start: 09-21-2024 End: 09-21-2024 ambulatory Natalia Tattersall CLEAN ROOM ASSEMBLER [facility] Comment on above: Lumbar radiculopathy , acute (Primary Dx) Start: 09-17-2024 End: 09-17-2024 Bamboo flowsheet Cora Mota Sarah PT Work Phone: [facility] Start: 09-17-2024 End: 09-17-2024 Bamboo flowsheet Cora Mota Sarah PT Work Phone: [facility] Start: 09-17-2024 End: 09-17-2024 ambulatory Cora Mota Sarah PT Work Phone: [facility] Comment on above: Lumbar radiculopathy , acute (Primary Dx) Start: 09-15-2024 End: 09-15-2024 Bamboo flowsheet Liudmila Cohn CLEAN ROOM ASSEMBLER Work Phone: [facility] Start: 09-15-2024 End: 09-15-2024 Bamboo flowsheet Liudmila Cohn CLEAN ROOM ASSEMBLER Work Phone: [facility] Start: 09-15-2024 End: 09-15-2024 ambulatory Liudmila Cohn CLEAN ROOM ASSEMBLER Work Phone: [facility] Comment on above: Lumbar radiculopathy , acute (Primary Dx) Start: 09-13-2024 End: 09-13-2024 Bamboo flowsheet Liudmila Cohn CLEAN ROOM ASSEMBLER Work Phone: [facility] Start: 09-13-2024 End: 09-13-2024 Bamboo flowsheet Liudmila Cohn CLEAN ROOM ASSEMBLER Work Phone: [facility] Start: 09-13-2024 End: 09-13-2024 ambulatory Liudmila Cohn CLEAN ROOM ASSEMBLER Work Phone: [facility] Comment on above: Lumbar radiculopathy , acute (Primary Dx) Start: 09-09-2024 End: 09-09-2024 Bamboo flowsheet Natalia Davianmello CLEAN ROOM ASSEMBLER [facility] Start: 09-09-2024 End: 09-09-2024 Bamboo flowsheet Natalia Tatterskaya CLEAN ROOM ASSEMBLER [facility] Start: 09-09-2024 End: 09-09-2024 ambulatory Natalia Valdez CLEAN ROOM ASSEMBLER [facility] Comment on above: Lumbar radiculopathy , acute (Primary Dx) Start: 09-07-2024 End: 09-07-2024 Bamboo flowsheet Natalia Valdez CLEAN ROOM ASSEMBLER [facility] Start: 09-07-2024 End: 09-07-2024 Bamboo flowsheet Natalia Valdez CLEAN ROOM ASSEMBLER [facility] Start: 09-07-2024 End: 09-07-2024 ambulatory Natalia Valdez CLEAN ROOM ASSEMBLER [facility] Comment on above: Lumbar radiculopathy , acute (Primary Dx) Start: 09-03-2024 End: 09-03-2024 Bamboo flowsheet Hailey Kim CLEAN ROOM ASSEMBLER [facility] Start: 09-03-2024 End: 09-03-2024 Bamboo flowsheet Hailey Kim CLEAN ROOM ASSEMBLER [facility] Start: 09-03-2024 End: 09-03-2024 ambulatory Hailey Kim CLEAN ROOM ASSEMBLER [facility] Comment on above: Lumbar radiculopathy , acute (Primary Dx) Start: 08-30-2024 End: 08-30-2024 Bamboo flowsheet Cora J Sarah PT Work Phone: [facility] Start: 08-30-2024 End: 08-30-2024 Bamboo flowsheet Cora J Sarah PT Work Phone: [facility] Start: 08-30-2024 End: 08-30-2024 ambulatory Cora J Sarah PT Work Phone: [facility] Comment on above: Lumbar radiculopathy , acute (Primary Dx) Start: 08-26-2024 End: 08-26-2024 ambulatory MICHELLE PUMP Not Available Start: 08-20-2024 End: 08-20-2024 Bamboo flowsheet Michelle Pump CHILD DEVELOPMENT SPECIALIST Work Phone: [facility] Start: 08-20-2024 End: 08-20-2024 Bamboo flowsheet Michelle Pump CHILD DEVELOPMENT SPECIALIST Work Phone: [facility] Start: 08-20-2024 End: 08-20-2024 Office outpatient visit 25 minutes Michelle Pump CHILD DEVELOPMENT SPECIALIST Work Phone: [facility] Comment on above: Back pain of lumbar region with sciatica (Primary Dx); Cervical radiculopathy; Acute pain of right shoulder; Atrial fibrillation, unspecified type (CMS/HCC) Start: 08-20-2024 End: 08-20-2024 Orders Only Michelle Pump CHILD DEVELOPMENT SPECIALIST Work Phone: [facility] Comment on above: Acute right flank pa in (Primary Dx); Abnormal x-ray Start: 08-12-2024 End: 08-12-2024 Bamboo flowsheet Liudmilameghan Cohn CLEAN ROOM ASSEMBLER Work Phone: [facility] Start: 08-12-2024 End: 08-12-2024 Bamboo flowsheet Liudmilameghan Cohn CLEAN ROOM ASSEMBLER Work Phone: [facility] Start: 08-12-2024 End: 08-12-2024 ambulatory Liudmilameghan Cohn CLEAN ROOM ASSEMBLER Work Phone: [facility] Comment on above: Acute pain of right shoulder (Primary Dx); Cervical radiculopathy Start: 08-10-2024 End: 08-10-2024 ambulatory NATALIAChuck VALDEZ Not Available Start: 07-28-2024 End: 07-28-2024 Bamboo flowsheet Cora Smith PT Work Phone: [facility] Start: 07-28-2024 End: 07-28-2024 Bamboo flowsheet Cora Mota Sarah PT Work Phone: [facility] Start: 07-28-2024 End: 07-29-2024 ambulatory Cora J Sarah PT Work Phone: [facility] Comment on above: Acute pain of right shoulder (Primary Dx); Cervical radiculopathy Start: 07-26-2024 End: 07-26-2024 ambulatory MICHELLE PUMP Not Available Start: 07-21-2024 End: 07-21-2024 Refill Nancy Marquez MD Work Phone: [facility] Comment on above: Gastroesophageal ref lux disease without esophagitis Start: 07-06-2024 End: 07-06-2024 ambulatory MARKUS GRIFFIN Not Available Start: 07-06-2024 End: 07-06-2024 Office outpatient visit 15 minutes Markus Griffin DPM Work Phone: [facility] Comment on above: Posterior tibial ten dinitis of right lower extremity (Primary Dx); Valgus deformity, not elsewhere classified, right ankle; Instability of right ankle joint Start: 07-06-2024 End: 07-06-2024 Bamboo flowsheet Markus Griffin DPM Work Phone: [facility] Start: 07-06-2024 End: 07-06-2024 Bamboo flowsheet Markus Griffin DPM Work Phone: [facility] Start: 06-08-2024 End: 06-08-2024 Office outpatient visit 25 minutes Markus Griffin DPM Work Phone: [facility] Comment on above: Posterior tibial ten dinitis of right lower extremity (Primary Dx); Sinus tarsi syndrome of right foot; Valgus deformity, not elsewhere classified, right ankle; Instability of right ankle joint; Difficulty walking Start: 06-08-2024 End: 06-08-2024 ambulatory MARKUS GRIFFIN Not Available Start: 06-08-2024 End: 06-08-2024 Bamboo flowsheet Markus Griffin DPM Work Phone: [facility] Start: 06-08-2024 End: 06-08-2024 Bamboo flowsheet Markusmary Griffin DPM Work Phone: [facility] Start: 05-26-2024 End: 05-26-2024 Clinical Support Michelle Pump CHILD DEVELOPMENT SPECIALIST Work Phone: [facility] Comment on above: Age-related osteopor osis without current pathological fracture (CMS/HCC) (Primary Dx); Atrial fibrillation, unspecified type (CMS/HCC) Start: 05-26-2024 End: 05-26-2024 Bamboo flowsheet Michelle Pump CHILD DEVELOPMENT SPECIALIST Work Phone: [facility] Start: 05-26-2024 End: 05-26-2024 Bamboo flowsheet Michelle Pump CHILD DEVELOPMENT SPECIALIST Work Phone: [facility] Start: 05-20-2024 End: 05-20-2024 Telephone encounter Nancy Marquez MD Work Phone: [facility] Comment on above: Age-related osteopor osis without current pathological fracture (CMS/HCC) (Primary Dx) Start: 04-12-2024 End: 04-12-2024 Orders Only Jody Bashir [facility] Work Phone: [facility] - [facility] On[facility] Comment on above: Senile osteoporosis (Primary Dx) Start: 04-09-2024 End: 04-09-2024 Bamboo flowsheet Michelle Pump CHILD DEVELOPMENT SPECIALIST Work Phone: [facility] Start: 04-09-2024 End: 04-09-2024 Bamboo flowsheet Michelle Pump CHILD DEVELOPMENT SPECIALIST Work Phone: [facility] Start: 04-09-2024 End: 04-09-2024 Patient encounter procedure Michelle Pump CHILD DEVELOPMENT SPECIALIST Work Phone: [facility] Comment on above: Medicare annual well ness visit, subsequent (Primary Dx); Other thrombophilia (CMS/HCC); Atrial fibrillation, unspecified type (CMS/HCC); Primary insomnia; Atherosclerosis of aorta (CMS/HCC); Asthma, unspecified asthma severity, unspecified whether complicated, unspecified whether persistent (CMS/HCC); Mixed hyperlipidemia (CMS/HCC); Hyperthyroidism (CMS/HCC); Migraine without status migrainosus, not intractable, unspecified migraine type (CMS/HCC); Palpitations; Gastroesophageal reflux disease without esophagitis; Renal stone; Age-related osteoporosis without current pathological fracture (CMS/HCC); Spondylosis; Myalgia; Positive colorectal cancer screening using Cologuard test; BPPV (benign paroxysmal positional vertigo), right; Occipital tendonitis; Seasonal allergies; Plantar fasciitis; Postmenopausal; Encounter for screening mammogram for malignant neoplasm of breast Start: 04-09-2024 End: 04-09-2024 ambulatory MICHELLE PUMP Not Available Start: 03-04-2024 End: 03-04-2024 Orders Only Michelle Pump CHILD DEVELOPMENT SPECIALIST Work Phone: [facility] Comment on above: Telogen effluvium (P rimary Dx) Start: 03-03-2024 End: 03-03-2024 Orders Only Michelle Pump CHILD DEVELOPMENT SPECIALIST Work Phone: [facility] Comment on above: Screening for choles terol level (Primary Dx) Start: 02-26-2024 End: 06-24-2024 Telephone encounter Michelle Pump CHILD DEVELOPMENT SPECIALIST Work Phone: [facility] Start: 02-13-2024 End: 02-13-2024 Bamboo flowsheet Markus Griffin DPM Work Phone: [facility] Start: 02-13-2024 End: 02-13-2024 Bamboo flowsheet Markus Griffin DPM Work Phone: [facility] Start: 02-13-2024 End: 02-13-2024 ambulatory MARKUS GRIFFIN Not Available Start: 02-13-2024 End: 02-13-2024 Office outpatient visit 25 minutes Markus Griffin DPM Work Phone: [facility] Comment on above: Plantar fasciitis (P rimary Dx); Right foot pain; Equinus contracture of right ankle Start: 12-17-2023 End: 12-17-2023 ambulatory MARKUS GRIFFIN Not Available Start: 12-10-2023 End: 12-10-2023 ambulatory CORA J SARAH Not Available Start: 12-08-2023 End: 12-08-2023 ambulatory CORA J SARAH Not Available Start: 12-02-2023 End: 12-02-2023 ambulatory CORA J SARAH Not Available Start: 11-28-2023 End: 11-28-2023 ambulatory LAXMI EVANGELISTA Not Available Start: 11-26-2023 End: 11-26-2023 ambulatory MICHELLE PUMP Not Available Start: 10-24-2023 End: 10-24-2023 ambulatory MICHELLE PUMP Not Available Start: 07-07-2022 End: 07-07-2022 ambulatory Laxmi Mao Other [facility] Other Start: 07-07-2022 Office outpatient ne w 20 minutes Laxmi Mao [facility] Start: 10-19-2020 End: 10-19-[address] JUAN NEAL Facility:[facility] Start: 08-14-2020 End: 08-15-[address] JUAN NEAL Facility:[facility] Procedures Date Procedure Procedure Detail Performing Clinician Start: 06-08-2024 Radex foot complete minimum 3 views Markus Griffin DPM Work Phone: Plan of Treatment Date Care Activity Detail Author Start: 03-23-2026 DTaP,Tdap and Td Vac cines (2 - Td or Tdap) DTaP,Tdap and Td Vaccines (2 - Td or Tdap) [employer] [facility] Start: 09-26-2025 Screening for malign ant neoplasm of colon [facility] Start: 04-09-2025 Medicare Annual Well ness (AWV) Medicare Annual Wellness (AWV) [facility] Start: 04-08-2025 End: 04-08-2025 Patient encounter procedure [facility] Start: 01-17-2025 Influenza vaccination [facility] Start: 01-03-2025 End: 01-03-2025 ambulatory 01/03/2025 1:00 PM EDT Infusion [facility] - Medical Oncology [facility] [place] [address] [facility] [address] Start: 11-30-2024 End: 12-30-2025 Calcium [Mass/volume] in Serum or Plasma Calcium Lab Routine Encounter for preprocedural laboratory examination Expected: 11/30/2024, Expires: 12/30/2025 [facility] Work Phone: Comment on above: Expected: 11/30/2024 , Expires: 12/30/2025 Start: 11-16-2024 End: 05-26-2025 Calcium [Mass/volume] in Serum or Plasma Calcium Lab Routine Age-related osteoporosis without current pathological fracture (CMS/HCC) Expected: 11/16/2024 (Approximate), Expires: 05/26/2025 [facility] Work Phone: Comment on above: Expected: 11/16/2024 (Approximate), Expires: 05/26/2025 Start: 10-06-2024 End: 10-06-2025 Calcium [Mass/volume] in Serum or Plasma Calcium Lab Routine Age-related osteoporosis without current pathological fracture (CMS/HCC) Expected: 10/06/2024 (Approximate), Expires: 10/06/2025 [facility] Work Phone: Comment on above: Expected: 10/06/2024 (Approximate), Expires: 10/06/2025 Start: 10-06-2024 End: 10-06-2024 Patient encounter procedure [facility] Comment on above: Arrived Start: 10-01-2024 End: 10-01-2024 ambulatory [facility] Comment on above: Arrived Start: 09-29-2024 End: 09-29-2024 ambulatory 09/29/2024 8:00 AM EDT Treatment [facility] [address] [place] [phone] Liudmila Cohn, CLEAN ROOM ASSEMBLER [address] [place] [address] [facility] Start: 09-27-2024 End: 09-27-2024 ambulatory 09/27/2024 8:00 AM EDT Treatment [facility] [address] [place] [phone] Liudmila Cohn, CLEAN ROOM ASSEMBLER [address] [place] [address] [facility] Start: 09-23-2024 End: 09-23-2024 ambulatory 09/23/2024 8:00 AM EDT Treatment [facility] [address] [place] [phone] Natalia Valdez PTA [facility] Start: 09-21-2024 End: 09-21-2024 ambulatory [facility] Comment on above: Lumbar radiculopathy , acute (Primary Dx) Start: 09-17-2024 End: 09-17-2024 ambulatory 09/17/2024 8:00 AM EDT Treatment [facility] [address] [place] [phone] Cora Smith, PT [address] [place] [address] [facility] Start: 09-15-2024 End: 09-15-2024 ambulatory [facility] Comment on above: Arrived Start: 09-13-2024 End: 09-13-2024 ambulatory 09/13/2024 8:00 AM EDT Treatment [facility] [address] [place] [phone] Liudmila Cohn, CLEAN ROOM ASSEMBLER [address] [place] [address] [facility] Start: 09-09-2024 End: 09-09-2024 ambulatory [facility] Comment on above: Lumbar radiculopathy , acute (Primary Dx) Start: 09-07-2024 End: 09-07-2024 ambulatory [facility] Comment on above: Arrived Start: 09-03-2024 End: 09-03-2024 ambulatory 09/03/2024 1:00 PM EDT Treatment [facility] [address] [place] [phone] Hailey Kim, CLEAN ROOM ASSEMBLER Arrived [facility] Comment on above: Arrived Start: 08-30-2024 End: 08-30-2024 ambulatory 08/30/2024 1:00 PM EDT Evaluation [facility] [address] [place] [phone] Cora Smith, PT [address] [place] [address] Back pain of lumbar region with sciatica [facility] Comment on above: Back pain of lumbar region with sciatica Start: 08-20-2024 End: 08-20-2025 CT Abdomen and Pelvis WO contrast CT abdomen pelvis wo IV contrast Imaging Routine Acute right flank pain Abnormal x-ray Expected: 08/20/2024, Expires: 08/20/2025 [facility] Work Phone: Comment on above: Expected: 08/20/2024 , Expires: 08/20/2025 Start: 08-20-2024 End: 08-20-2025 XR Lumbar spine Views W flexion and W extension [facility] Work Phone: Comment on above: Expected: 08/20/2024 , Expires: 08/20/2025 Start: 08-20-2024 End: 08-20-2024 ambulatory 08/20/2024 8:00 AM EDT Treatment [facility] [address] [place] [phone] Liudmila Cohn, CLEAN ROOM ASSEMBLER [address] [place] [address] [facility] Start: 08-02-2024 Adult BMI Screening Adult BMI Screen ing [facility] Start: 08-02-2024 Tobacco Screening Tobacco Screening [facility] Start: 07-28-2024 End: 07-28-2024 ambulatory 07/28/2024 1:00 PM EDT Evaluation [facility] [address] [place] [phone] Cora Smith, PT [address] [place] [address] Acute pain of right shoulder [facility] Comment on above: Acute pain of right shoulder Start: 07-06-2024 End: 07-06-2024 Patient encounter procedure 07/06/2024 2:45 PM EST Office Visit [facility] [address] [place] [phone] Markus Griffin, DPM [address] [place], [place] [phone] [facility] Start: 06-08-2024 End: 06-08-2024 Patient encounter procedure 06/08/2024 2:45 PM EST Office Visit [facility] [address] [place] [phone] Markus Griffin, DPM [address] [place] [address] [facility] Comment on above: Arrived Start: 05-26-2024 End: 05-26-2024 Clinical Support 05/26/2024 3:30 PM EST Clinical Support [facility] [address] [facility] [phone] PumpMichelle, CHILD DEVELOPMENT SPECIALIST [address] [place] [place] [address] Arrived [facility] Comment on above: Arrived Start: 04-09-2024 End: 04-09-2025 Calcium [Mass/volume] in Serum or Plasma Calcium Lab Routine Age-related osteoporosis without current pathological fracture ([facility]/HCC) Postmenopausal Expected: 04/09/2024 (Approximate), Expires: 04/09/2025 [facility] Comment on above: Expected: 04/09/2024 (Approximate), Expires: 04/09/2025 Start: 04-09-2024 End: 06-09-2025 DBT Breast - bilateral screening Bilateral screening mammogram with tomosynthesis Imaging Routine Encounter for screening mammogram for malignant neoplasm of breast Expected: 04/09/2024, Expires: 06/09/2025 [facility] Work Phone: Comment on above: Expected: 04/09/2024 , Expires: 06/09/2025 Start: 04-09-2024 End: 04-09-2024 Patient encounter procedure 04/09/2024 8:00 AM EST Office Visit [facility] [address] [facility] [place] [phone] Pump, Michelle, CHILD DEVELOPMENT SPECIALIST [address] [place] [address] Arrived [facility] Comment on above: Arrived Start: 04-05-2024 End: 04-05-2024 Patient encounter procedure 04/05/2024 8:00 AM EST Office Visit [facility] [address] [place] [phone] Pump, Michelle, CHILD DEVELOPMENT SPECIALIST [address] [facility] [place] [address] [facility] Start: 03-29-2024 End: 03-29-2024 Patient encounter procedure 03/29/2024 8:30 AM EST Office Visit [facility] [address] [place] [phone] Markus Griffin, DPM [address] [place] [address] [facility] Start: 03-04-2024 End: 03-04-2025 Thyroid panel with tsh Thyroid panel with tsh Lab Routine Telogen effluvium Expected: 03/04/2024 (Approximate), Expires: 03/04/2025 [facility] Work Phone: Comment on above: Expected: 03/04/2024 (Approximate), Expires: 03/04/2025 Start: 03-04-2024 End: 03-04-2025 Triiodothyronine (T3) Free [Mass/volume] in Serum or Plasma T3, free Lab Routine Telogen effluvium Expected: 03/04/2024 (Approximate), Expires: 03/04/2025 [facility] Comment on above: Expected: 03/04/2024 (Approximate), Expires: 03/04/2025 Start: 03-03-2024 End: 03-03-2025 Lipid 1996 panel - Serum or Plasma Lipid panel Lab Routine Screening for cholesterol level Expected: 03/03/2024 (Approximate), Expires: 03/03/2025 [facility] Work Phone: Comment on above: Expected: 03/03/2024 (Approximate), Expires: 03/03/2025 Start: 01-18-2024 COVID-19 Vaccine ( season) COVID-19 Vaccine ( season) [facility] Start: 01-18-2024 Influenza [facility] Start: 2017 Fall Risk Screening Fall Risk Screen ing [facility] Start: 2002 Administration of varicella zoster vaccine Zoster (Shingles) Vaccine (1 of 2) [facility] Start: 1992 Screening for malign ant neoplasm of breast Mammogram [facility] Start: 1964 Depression Screening Depression Scre ening [facility] Start: 1952 Medicare Annual Well ness (AWV) Medicare Annual Wellness (AWV) [facility] Start: 1952 Screening for malign ant neoplasm of colon [facility] End: 12-02-2025 Calcium [Mass/volume] in Serum or Plasma Calcium Lab Routine Senile osteoporosis 1 Occurrences starting 12/02/2024 until 12/02/2025 [facility] Work Phone: Comment on above: 1 Occurrences starti ng 12/02/2024 until 12/02/2025 Immunizations Immunization Date Immunization Notes Care Provider Fabi abbasi 11-16-2022 Pneumococcal Conjuga te PCV 20 Markus Rusher DPM Work Phone: [facility] 03-05-2022 influenza, injectabl e, quadrivalent, preservative free Markus Rusher DPM Work Phone: [facility] 03-05-2022 influenza virus vacc ine, unspecified formulation Markus Rusher DPM Work Phone: [facility] 03-14-2021 influenza, injectabl e, quadrivalent, preservative free Markus Rusher DPM Work Phone: [facility] 03-08-2020 influenza, injectabl e, quadrivalent, preservative free Markus Rusher DPM Work Phone: [facility] 03-30-2019 influenza, injectabl e, quadrivalent, contains preservative Markus Rusher DPM Work Phone: [facility] 03-04-2018 influenza, injectabl e, quadrivalent, preservative free Markus Rusher DPM Work Phone: [facility] 03-05-2017 influenza, injectabl e, quadrivalent, preservative free Markus Rusher DPM Work Phone: [facility] 03-23-2016 tetanus toxoid, redu jaspreet diphtheria toxoid, and acellular pertussis vaccine, adsorbed Markus Rusher DPM Work Phone: [facility] 02-28-2016 influenza, injectabl e, quadrivalent, preservative free Markus Rusher DPM Work Phone: [facility] 02-22-2015 influenza, injectabl e, quadrivalent, preservative free Markus Rusher DPM Work Phone: [facility] 03-17-2014 influenza, injectabl e, quadrivalent, contains preservative Markus Rusher DPM Work Phone: [facility] Payers Date Payer Category Payer Medicare (Managed Care) 1.2. [id number] 2022 Medicare [id number] 2018 Medicare [id number] 1959 Medicare [id number] 1950 Unknown [id number] 2.16.84 0.1.456899.3.579.2.593 1952 Unknown [id number] 2.16.84 0.1.581996.3.579.2.593 1952 Unknown [id number] 2.16.84 0.1.302376.3.579.2.1259 1952 Unknown [id number] 2.16.84 0.1.159847.3.579.2.1259 1952 Unknown [id number] 2.16.84 0.1.045652.3.579.2.1259 1952 Unknown [id number] 2.16.84 0.1.685175.3.579.2.1258 1952 Unknown [id number] 2.16.84 0.1.384863.3.579.2.1258 1952 Unknown [id number] 2.16.84 0.1.003137.3.579.2.1258 1952 Unknown [id number] 2.16.84 0.1.545215.3.579.2.1258 1952 Unknown [id number] 2.16.84 0.1.642268.3.579.2.1258 1952 Unknown [id number] 2.16.84 0.1.530684.3.579.2.1258 1952 Unknown [id number] 2.16.84 0.1.705914.3.579.2.1258 1952 Unknown [id number] 2.16.84 0.1.009691.3.579.2.1258 1952 Unknown [id number] 2.16.84 0.1.182450.3.579.2.1258 1952 Unknown [id number] 2.16.84 0.1.022869.3.579.2.1258 1952 Unknown [id number] 2.16.84 0.1.843149.3.579.2.1258 1952 Unknown [id number] 2.16.84 0.1.858888.3.579.2.1258 1952 Unknown [id number] 2.16.84 0.1.542613.3.579.2.1258 1952 Unknown [id number] 2.16.84 0.1.867369.3.579.2.1258 1952 Unknown [id number] 2.16.84 0.1.606237.3.579.2.1258 1952 Unknown [id number] 2.16.84 0.1.018298.3.579.2.1258 1952 Unknown [id number] 2.16.84 0.1.797638.3.579.2.1258 1952 Unknown [id number] 2.16.84 0.1.398159.3.579.2.1258 1952 Unknown [id number] 2.16.84 0.1.868780.3.579.2.1258 1952 Unknown [id number] 2.16.84 0.1.761032.3.579.2.1258 1952 Unknown [id number] 2.16.84 0.1.326386.3.579.2.1258 1952 Unknown [id number] 2.16.84 0.1.973759.3.579.2.1258 1952 Unknown [id number] 2.16.84 0.1.248339.3.579.2.1258 1952 Unknown [id number] 2.16.84 0.1.411660.3.579.2.1258 1952 Unknown [id number] 2.16.84 0.1.296292.3.579.2.1258 1952 Unknown [id number] 2.16.84 0.1.979575.3.579.2.1258 1952 Unknown [id number] 2.16.84 0.1.537508.3.579.2.1258 1952 Unknown [id number] 2.16.84 0.1.174879.3.579.2.1258 1952 Unknown [id number] 2.16.84 0.1.604485.3.579.2.1258 1952 Unknown [id number] 2.16.84 0.1.455817.3.579.2.1258 1952 Unknown [id number] 2.16.84 0.1.629999.3.579.2.1259 1952 Unknown [id number] 2.16.84 0.1.614798.3.579.2.1259 1952 Unknown [id number] 2.16. 840.1.562889.3.579.2.1286 Private Health Insurance [id number] 2.16.840.1.888545.19 Social History Date Type Detail Facility Unknown if ever smoked [facility] Other Start: 06-29-2020 End: 10-24-2023 Sex Assigned At [facility] Other Start: 04-09-2022 End: 12-17-2023 Tobacco smoking status [facility] Ex-smoker [facility] End: 05-19-2000 History of tobacco use Current smoker [facility] End: 05-19-2000 History of tobacco use Cigarette Smoker [facility] Start: 04-09-2022 End: 12-17-2023 Tobacco use and exposure Smokeless tobacco non-user [facility] Start: 06-29-2020 End: 10-24-2023 History of Social function [facility] How often to you hav e a drink containing alcohol? Monthly or less [facility] How many standard drinks containing alcohol do you have on a typical day? 1 or 2 [facility] How often do you hav e 6 or more drinks on 1 occasion? Never [facility] Start: 1950 Sex assigned at Not on file [facility] History of tobacco use Passive smoker [facility] Start: 04-09-2024 End: 07-06-2024 Alcoholic beverage intake Ex-drinker (finding) [facility] Start: 08-03-2023 End: 01-03-2025 Alcoholic beverage intake Current drinker of alcohol (finding) [facility] Childcare Unknown [facility] Start: 04-09-2022 Alcohol Comment social [facility] Start: 12-22-2014 Sex Female (finding) [facility] Clinical Notes 07-07-2022 to 01-03-2025 Lana Costa RN - 01/03/2025 1:00 PM EDTTelephone Encounter - Rafi Cantrell - 12/23/2024 8:45 AM EDTTelephone Encounter - Rafi Cantrell - 12/23/2024 8:45 AM EDTAmber Pump, CHILD DEVELOPMENT SPECIALIST - 10/06/2024 9:30 AM EDT Note Date & Type Note Facility 01-03-2025 History of Presen t illness Narrative Pt here for prolia injection as scheduled. States she has had before and tolerated well. Labs and VS WNL. Prolia given SQ to left upper arm. Pt tolerated well. Dc'd in stable ambulatory condition. documented in this encounter [facility] 12-23-2024 Telephone encounter Note Vero [place] called -Candy - needing confirmation that Vero got the Prolia shot last August Please call there office at [phone]- leave [facility] w human resources receptionist . Ty They may want something faxed over Marly and I couldn't see that she had one here [facility] 12-23-2024 Miscellaneous Notes Vero [place] called -Candy - needing confirmation that Vero got the Prolia shot last August Please call there office at [phone]- leave info w human resources receptionist . Ty They may want something faxed over Marly and I couldn't see that she had one here documented in this encounter [facility] 12-07-2024 Telephone encounter Note [facility] needs last office note and Dexa scan if she had one done . Ty Please fax to [phone] [facility] 12-07-2024 Miscellaneous Notes [facility] needs last office note and Dexa scan if she had one done . Ty Please fax to [phone] documented in this encounter [facility] 10-06-2024 History of Presen t illness Narrative Images from the original note were not included. Vero Vincent is a 74 y.o. female presents with chief complaint of Results (Pt is here to discuss labs and possible statin medication) HPI: HPI History of Present Illness As above. She is doing ok. She is seeing PT for her back and sciatica. She had a CT of the abdomen and pelvis that showed atherosclerosis. She has taken a statin in her past. She thought we meant a blood thinner when she was called on her about a statin. She is thinking about going back on aciphex but will finish meds she has. Her back pain is better as is her sciatica. SUBJECTIVE: MEDICATIONS: Current Outpatient Medications Medication Instructions albuterol HFA 90 mcg/act inhaler Azelastine HCl 137 MCG/SPRAY solution b complex vitamins capsule 1 capsule, Daily Breyna 160-4.5 MCG/ACT inhaler 2 puffs, 2 times daily cholecalciferol (Vitamin D-3) 50 MCG (1999) capsule Take by mouth clobetasol (Temovate) 0.05 % external solution 2 times daily ezetimibe (ZETIA) 10 mg, Daily famotidine (PEPCID) 40 mg, Nightly fluticasone (Flonase) 50 MCG/ACT nasal spray folic acid (Folvite) 1 MG tablet Daily minoxidil (Minoxidil for Women) 2 % external solution 2 times daily montelukast (SINGULAIR) 10 mg, Oral, Daily pantoprazole (PROTONIX) 40 mg, Oral, Daily before breakfast, Do not crush, chew, or split. Prolia 60 mg, Subcutaneous, Once tiZANidine (ZANAFLEX) 4 mg, Oral, 3 times daily PRN Zinc Sulfate (ZINC 15 PO) Take by mouth ALLERGIES: Allergies Allergen Reactions Hydromorphone Itching History: Past Medical History: Diagnosis Date Asthma (CMS/HCC) Atrial fibrillation (CMS/HCC) BPPV (benign paroxysmal positional vertigo), right 12/01/2023 Hyperthyroidism (CMS/HCC) Internal derangement of right knee 10/21/2023 Migraine ([facility]) Osteoporosis ([facility]) Renal stone Past Surgical History: Procedure Laterality Date APPENDECTOMY BREAST BIOPSY Right CARDIAC ELECTROPHYSIOLOGY STUDY AND ABLATION 1988 KNEE ARTHROSCOPY W/ LASER Right 2021 LITHOTRIPSY MANDIBLE SURGERY as a child Family History Problem Relation Name Age of Onset Lung cancer Mother Heart disease Father Prostate cancer Father Hypertension Brother Stroke Paternal Grandmother Social History Socioeconomic History Marital status: Spouse name: Not on file Number of children: Not on file Years of education: Not on file Highest education level: Not on file Occupational History Not on file Tobacco Use Smoking status: Former Current packs/day: 0.00 Types: Cigarettes Quit date: 2000 Years since quittin.4 Passive exposure: Past Smokeless tobacco: Never Vaping Use Vaping status: Never Used Substance and Sexual Activity Alcohol use: Not Currently Alcohol/week: 0.0 - 1.0 standard drinks of alcohol Drug use: Never Sexual activity: Not on file Other Topics Concern Not on file Social History Narrative Not on file Social Drivers of Health Financial Resource Strain: Not on file Food Insecurity: No Food Insecurity (08/03/2023) Received from [facility] Hunger Screening Within the past 12 months we worried whether our food would run out before we got money to buy more.: Never True Within the past 12 months the food we bought just didn't last and we didn't have money to get more.: Never True Transportation Needs: Not on file Physical Activity: Not on file Stress: Not on file Social Connections: Not on file Intimate Partner Violence: Not on file Housing Stability: Not on file I have reviewed and reconciled the history and medication list with the patient today. REVIEW OF SYMPTOMS: Review of Systems Constitutional: Negative. Negative for appetite change, chills, fatigue and fever. HENT: Negative. Negative for congestion, ear discharge, ear pain, postnasal drip, rhinorrhea, sinus pressure, sinus pain, sneezing, sore throat and trouble swallowing. Eyes: Negative. Negative for visual disturbance. Respiratory: Negative for cough, shortness of breath and wheezing. Cardiovascular: Negative. Negative for chest pain, palpitations and leg swelling. Gastrointestinal: Negative. Negative for abdominal distention, abdominal pain, blood in stool, diarrhea, nausea and vomiting. Genitourinary: Negative. Negative for decreased urine volume, difficulty urinating, dysuria, flank pain, frequency, hematuria and urgency. Musculoskeletal: Negative. Negative for arthralgias, myalgias and neck pain. Skin: Negative. Negative for rash. Neurological: Negative for dizziness, tremors, weakness, light-headedness and headaches. Psychiatric/Behavioral: Negative. Negative for confusion, decreased concentration, self-injury and sleep disturbance. The patient is not nervous/anxious and is not hyperactive. Hematological: Negative. Negative for adenopathy. Does not bruise/bleed easily. Endocrine: Negative. Negative for polydipsia and polyphagia. Allergic/Immunologic: Negative for environmental allergies, food allergies and immunocompromised state. OBJECTIVE: Results 02/13/2024 8:55 AM 04/09/2024 8:19 AM 05/26/2024 3:34 PM 06/08/2024 2:54 PM 07/06/2024 2:46 PM 07/26/2024 8:34 AM 08/20/2024 8:36 AM Vitals BMI 23.15 kg/m2 23.83 kg/m2 23.4 kg/m2 23.4 kg/m2 23.86 kg/m2 BSA (m2) 1.74 m2 1.75 m2 1.75 m2 1.75 m2 1.77 m2 Systolic 132 130 110 124 Diastolic 72 84 76 90 Heart Rate 76 76 88 92 Height (in) 5' 6 5' 5.5 5' 6 5' 6 Weight (lb) 143.4 145.4 145 145 147.8 Visit Report Report Report Report Report Report Report Physical Exam Vitals and nursing note reviewed. Constitutional: General: She is not in acute distress. Appearance: Normal appearance. She is not ill-appearing, toxic-appearing or diaphoretic. HENT: Head: Normocephalic. Mouth/Throat: Mouth: Mucous membranes are moist. Cardiovascular: Rate and Rhythm: Normal rate and regular rhythm. Pulses: Normal pulses. Heart sounds: Normal heart sounds. No murmur heard. No friction rub. No gallop. Pulmonary: Effort: Pulmonary effort is normal. No respiratory distress. Breath sounds: Normal breath sounds. No wheezing, rhonchi or rales. Abdominal: General: Bowel sounds are normal. There is no distension. Palpations: Abdomen is soft. Tenderness: There is no abdominal tenderness. Musculoskeletal: General: No swelling or deformity. Normal range of motion. Cervical back: Normal range of motion and neck supple. Skin: General: Skin is warm and dry. Capillary Refill: Capillary refill takes less than 2 seconds. Findings: No bruising or erythema. Neurological: General: No focal deficit present. Mental Status: She is alert and oriented to person, place, and time. Mental status is at baseline. Motor: No weakness. Gait: Gait normal. Psychiatric: Mood and Affect: Mood normal. Behavior: Behavior normal. Thought Content: Thought content normal. Judgment: Judgment normal. Physical Exam ASSESSMENT AND PLAN: Study Result Narrative & Impression EXAM: CT Abdomen Pelvis without IV Contrast. REASON FOR EXAM: Right sided low abdominal pain with hematuria, frequent urination. COMPARISON: CT abdomen and pelvis August 03, 2023. TECHNIQUE: Multiplanar noncontrast images of the abdomen and pelvis were obtained. FINDINGS: Lung bases, base of the heart, pericardium: 5 mm groundglass nodule right medial lung base unchanged. Liver: No abnormalities by CT. Gallbladder/ Biliary tree: No calcified stones or ductal dilatation. Spleen, pancreas: No abnormalities by CT. Adrenals, kidneys: No abnormalities by CT. Retroperitoneum: Atherosclerosis of the aorta. Scattered subcentimeter noncalcified retroperitoneal lymph nodes. No ureteral dilatation or visible stone. Small bowel: No dilatation, air-fluid level, free air or ascites is present. Appendix: Multiple appendicoliths in a nondistended appendix. Large Bowel: Moderate amount of stool present throughout the course of the colon. Mild diverticulosis coli of the sigmoid colon. No inflammatory changes. Pelvis: Bladder is without focal abnormality. Gynecologic: The uterus and adnexa are not enlarged. Osseous structures, regional soft tissues: Mild lumbar spondylosis. Phlebolithic type calcifications in the pelvis. IMPRESSION CT Abdomen: 1. No CT evidence of nephrolithiasis or obstructive uropathy. 2. Atherosclerosis. 3. Subtle 5 mm groundglass opacity in the right medial basilar lung. This is unchanged from previous. Follow-up based on Fleischner criteria below. 4. Obstipation of the colon. 5. Diverticulosis coli. Fleischner 2017 guidelines Solid nodules Solitary nodule size: <6 mm * low risk patients: no follow-up needed * high risk patients: optional CT at 12 months Solitary nodule size: 6-8 mm * low risk patients: follow-up at 6-12 months, then consider further follow-up at 18-24 months * high risk patients: initial follow-up CT at 6-12 months and then at 18-24 months if no change Solitary nodule size: >8 mm * either low or high risk patients * consider follow-up CT at 3 months, and/or CT-PET, and/or biopsy Multiple nodules size: <6 mm * low risk patients: no routine follow-up * high risk patients: optional CT at 12 months Multiple nodules size: 6-8 mm * low risk patients: follow-up at 3-6 months, then consider further follow-up at 18-24 months * high risk patients: follow-up at 3-6 months, then at 18-24 months if no change Multiple nodules size: >8 mm * low risk patients: follow-up at 3-6 months, then consider further follow-up at 18-24 months * high risk patients: follow-up at 3-6 months, then at 18-24 months if no change Note: newly detected indeterminate nodule in persons 35 years of age or older. * low risk patients: minimal or absent history of smoking and or other known risk factors * high risk patients: history of smoking or of other known risk factors (e.g. first degree relative with lung cancer, or exposure to asbestos, radon, uranium) * if a nodule up to 8 mm is partly solid or is ground glass further follow-up is required after 24 months to exclude possible slow growing adenocarcinoma (LEOBARDO) Subsolid nodules Solitary pure ground-glass nodule * nodule size <6mm * no CT follow-up required * nodule size e6mm * follow up CT at 6-12 months, then every 2 years until 5 years Solitary part-solid nodule * nodule size <6mm * no CT follow-up required * nodule size e6mm * follow-up CT at 3-6 months * if unchanged, and solid component remains <6mm, then annual follow-up for 5 years Multiple subsolid nodules * nodule size <6mm * follow-up CT at 3-6 months * consider further follow-up at 2 and 4 years if stable * nodule size e6mm * follow-up CT at 3-6 months * subsequent management based on the most suspicious nodule(s) All CT scans at this institution are performed using dose optimization techniques as appropriate for the performed exam including the following: Automated exposure control Adjustment of the mA and/or kV according to patient size Use of iterative reconstruction technique This report is generated using voice recognition reporting ([employer]). On occasion, [employer] erroneously drops words from the report or replaces the spoken word with a similar sounding word. Please call with any questions/concerns regarding the report. Dictated and transcribed 08/27/2024/tm This report has been electronically signed and approved by the interpreting radiologist. Assessment/Plan Diagnoses and all orders for this visit: Atherosclerosis of arteries Discussed CT findings and she is willing to start a low dose statin and stop her Zetia. Discussed SE including muscle pain and weakness. Will start rosuvastatin 5 mg. Work on diet and physical activity. PVU. - rosuvastatin (Crestor) 5 MG tablet; Take 1 tablet (5 mg) by mouth Daily Atherosclerosis of aorta (CMS/HCC) See above. Was on atorvastatin in the past years ago. Elevated lipoprotein(a) (CMS/HCC) Lifestyle management to reduce cardiovascular risk - Diet recommendations- Consume a dietary pattern that includes vegetables, fruits and whole grains; include low fat dairy products, poultry, fish, legumes, nontropical vegetable oils and nuts. Limit intake of sweets, sugar sweetened beverages and red meats. You can follow the DASH (Dietary Approaches to stop Hypertension)diet or AHA ([place] [employer]). Blood pressure management- lower sodium intake to 1,500 mg sodium/day. Physical activity- to reduce LDL-Cholesterol and non HDL Cholesterol you should engage in aerobic activity 40 minutes 3-4 sessions a week. Obtaining 150 min of activity a week is ideal. - rosuvastatin (Crestor) 5 MG tablet; Take 1 tablet (5 mg) by mouth Daily Atrial fibrillation, unspecified type (CMS/HCC) Stable. HR RRR in office. No further episodes of Afib since her ablation. Age-related osteoporosis without current pathological fracture (CMS/HCC) Due for Prolia in October. Will get calcium level in October and send over orders to [facility]. Continue weight bearing exercises and vitamin D3 supplement. - Calcium; Future Lumbar radiculopathy, acute Improved. Discussed GERD and medications. She is taking her famotidine PRN. To take BID will try that before changing to Acidphex. documented in this encounter [facility] 09-17-2024 History of Presen t illness Narrative Images from the original note were not included. Physical Therapy Physical Therapy Treatment Visit Patient Name: Vero Vincent Today's Date: 09/17/2024 Encounter Diagnoses Name Primary? Lumbar radiculopathy, acute Yes Visit number: 7 Time in: 8:00 am Time out: 8:52 am Supervised time: 39 minutes Total time: 52 Minutes Subjective Vero Vincent 73 y.o. female presents to physical therapy w/ chief c/o low back and maciel LE pain. Mechanism of Onset: no known ROSALVA or cause, started ~2 weeks ago, severe initially improved some with time and meds Current deficits: pain, decreased ROM/flexibility, impaired gait and functional mobility, weakness, pelvic alignment issues Pain: 2/10 R low back/buttock pain upon arrival Location: maciel low back worse on R side, maciel LE's ant thighs mostly above knees R > L leg. Aggravating Factors: position change, standing, walking, ADLs/self care especially on her feet, pt report initially amb with FWW now able to go without. Relieving factors: rest, heat Imaging: X-ray 08/20/24 FINDINGS: Seven images. For counting purposes, there are five nonrib-bearing type lumbar vertebral bodies. The pedicles are symmetric. The sacral struts and sacroiliac joints are preserved. Facet arthrosis from L3-L4 to L5-S1. No spondylolysis. There is anterolisthesis of approximately 2 to 3 mm of L3 on L4 and L4 on L5. There is no height loss or angulation. Mild anterior spurring from L3-L5. Atherosclerosis noted. There is no significant change in position from neutral to flexion. Slight reduction at L3-L4 and L4-L5 in extension. Vague densities over the right renal shadow are present in the frontal view. These do not persist on the oblique or other views likely prominent costochondral calcifications or nephroliths. IMPRESSION Lumbar Spine: 1. Spondylosis. Grade 1 spondylolisthesis of L3 on L4 and L4 on L5. 2. Possible right nephrolithiasis. IMPRESSION Flexion and Extension: There is slight reduction, 1 to 2 mm of motion, of spondylolisthesis at L3-L4 and L4-L5. Precautions: R ant innominate rotation at IE Objective Lumbar mobilty: min loss all planes, ERP with ext, pulling with flex and rotation L. + leg length difference R > L 1 inch with R ant innominate rotation noted at pelvis. Min decreased HS flexibility worse on R than L. Maciel hip strength: flex=4/5, abd=4-/5, ext=4/5 MMT able to bridge bottom off bed but difficulty and increased pain. Mod antalgic gait into session, mild to WNL out. Back index= 42% impaired at IE Treatment Interventions Education: HEP education with demonstration Manual Therapy: (15 minutes ) Delivered manual ther STM/massage to R sided lower lumbar spine, R hip down into ITB region, R glute/piriformis and down hamstring with use of massage roller ball, mild to mod pressure tolerated well. (All done in L sidelying today) leg length = today. Therapeutic Exercise: (24 minutes supervised ) Guided pt through ther and flex ex per ALEJANDRO grid, to improve lumbar core LE ROM, flexibility, core/hip strength Neuromuscular re-education: Modalities: (12 min) MHP/ IFC seated in chair with some relief reported. Assessment/Plan Low back pain, pelvic alignment issues, decreased ROM/flexibility, decreased core/hip strength, maciel LE radicular like pain causing impaired functional mobility, gait at times, decreased QOL. Pt demos good tolerance to ALEJANDRO promoting lumbar mobility and core strength/stability. Continued STM/massage, some TTP glute and Hamstring but improving. Finished with estim/MHP for pain relief. Continue as tolerated documented in this encounter [facility] 08-30-2024 History of Presen t illness Narrative Images from the original note were not included. Physical Therapy Physical Therapy Evaluation Visit Patient Name: Vero Vincent Today's Date: 08/30/2024 Encounter Diagnoses Name Primary? Lumbar radiculopathy, acute Yes Visit number: 1 Subjective Vero Vincent 73 y.o. female presents to physical therapy w/ chief c/o low back and maciel LE pain. Mechanism of Onset: no known ROSALVA or cause, started ~2 weeks ago, severe initially improved some with time and meds Current deficits: pain, decreased ROM/flexibility, impaired gait and functional mobility, weakness, pelvic alignment issues Pain: 06/28 amb into session today, mod at times, severe initially Location: maciel low back worse on R side, maciel LE's ant thighs mostly above knees R > L leg. Aggravating Factors: position change, standing, walking, ADLs/self care especially on her feet, pt report initially amb with FWW now able to go without. Relieving factors: rest, heat Imaging: X-ray 08/20/24 FINDINGS: Seven images. For counting purposes, there are five nonrib-bearing type lumbar vertebral bodies. The pedicles are symmetric. The sacral struts and sacroiliac joints are preserved. Facet arthrosis from L3-L4 to L5-S1. No spondylolysis. There is anterolisthesis of approximately 2 to 3 mm of L3 on L4 and L4 on L5. There is no height loss or angulation. Mild anterior spurring from L3-L5. Atherosclerosis noted. There is no significant change in position from neutral to flexion. Slight reduction at L3-L4 and L4-L5 in extension. Vague densities over the right renal shadow are present in the frontal view. These do not persist on the oblique or other views likely prominent costochondral calcifications or nephroliths. IMPRESSION Lumbar Spine: 1. Spondylosis. Grade 1 spondylolisthesis of L3 on L4 and L4 on L5. 2. Possible right nephrolithiasis. IMPRESSION Flexion and Extension: There is slight reduction, 1 to 2 mm of motion, of spondylolisthesis at L3-L4 and L4-L5. Precautions: R ant innominate rotation at IE Objective Lumbar mobilty: min loss all planes, ERP with ext, pulling with flex and rotation L. + leg length difference R > L 1 inch with R ant innominate rotation noted at pelvis. Min decreased HS flexibility worse on R than L. Maciel hip strength: flex=4/5, abd=4-/5, ext=4/5 MMT able to bridge bottom off bed but difficulty and increased pain. Mod antalgic gait into session, mild to WNL out. Back index= 42% impaired at IE Treatment Interventions Education: HEP education with demonstration with handout and revie, Educated on Eval Findings and POC, heat use x 10 min self care/home maintenance Manual Therapy: MET for R ant innominate rotation x 10 min fully corrected at LE's and pelvis Therapeutic Exercise: per ALEJANDRO grid, ROM, flexibility x 15 min sup Neuromuscular re-education: TA training/Lumbar stabilization with core and hip strengthening as able Modalities: MHP/ESU x 12 min IFC seated in chair with some relief reported. Assessment/Plan Low back pain, pelvic alignment issues, decreased ROM/flexibility, decreased core/hip strength, maciel LE radicular like pain causing impaired functional mobility, gait at times, decreased QOL. Patient Goals Short Term Goal #1: pt will demo lumbar mobility grossly WNL all planes pain free Short Term Goal #2: pt will no longer c/o maciel LE radicular like s/s Short Term Goal #3: pt will self report impairment less than or equal to 6% per Back index at DC Short Term Goal #4: pt will be ind with HEP for maintenance at DC and able to avoid further imaging/intervention for low back at this time. Pt will benefit from skilled PT to address the above impairments for 2-3x/week for 4-6 weeks pending pt needs/progress and insurance approval. I hereby deem this POC medically necessary. Please sign below. Date: documented in this encounter [facility] 08-20-2024 History of Presen t illness Narrative Images from the original note were not included. Vero Vincent is a 73 y.o. female presents with chief complaint of Back Pain (Pt started PT on her neck and arm. Pt woke up Friday and her hips felt off. Pt states pain is worsening. Pt has bilateral hip and back pain that is radiating down bilateral legs. Pt denies numbness or tingling. Pt states sitting feels better. ) HPI: Back Pain Pertinent negatives include no abdominal pain, chest pain, dysuria, fever, headaches or weakness. As above. She is seeing PT for her neck and shoulder. She has had 3 sessions. She noticed a week ago Friday she noticed she was very sore in both posterior hips. The pain shoots down her legs, right is worse than left. She states it is a shooting sharp pain that makes her stop whatever she is doing. Standing, position changes, sitting all affect it. SUBJECTIVE: MEDICATIONS: Current Outpatient Medications Medication Instructions albuterol HFA 90 mcg/act inhaler Azelastine HCl 137 MCG/SPRAY solution b complex vitamins capsule 1 capsule, Daily Breyna 160-4.5 MCG/ACT inhaler 2 puffs, 2 times daily cholecalciferol (Vitamin D-3) 50 MCG (1999) capsule Take by mouth clobetasol (Temovate) 0.05 % external solution 2 times daily ezetimibe (ZETIA) 10 mg, Daily famotidine (PEPCID) 40 mg, Nightly fluticasone (Flonase) 50 MCG/ACT nasal spray folic acid (Folvite) 1 MG tablet Daily minoxidil (Minoxidil for Women) 2 % external solution 2 times daily montelukast (SINGULAIR) 10 mg, Oral, Daily pantoprazole (PROTONIX) 40 mg, Oral, Daily before breakfast, Do not crush, chew, or split. Prolia 60 mg, Subcutaneous, Once Zinc Sulfate (ZINC 15 PO) Take by mouth ALLERGIES: Allergies Allergen Reactions Hydromorphone Itching History: Past Medical History: Diagnosis Date Asthma (CMS/HCC) Atrial fibrillation (CMS/HCC) BPPV (benign paroxysmal positional vertigo), right 12/01/2023 Hyperthyroidism (CMS/HCC) Internal derangement of right knee 10/21/2023 Migraine (CMS/HCC) Osteoporosis (CMS/HCC) Renal stone Past Surgical History: Procedure Laterality Date APPENDECTOMY BREAST BIOPSY Right CARDIAC ELECTROPHYSIOLOGY STUDY AND ABLATION 1988 KNEE ARTHROSCOPY W/ LASER Right 2021 LITHOTRIPSY MANDIBLE SURGERY as a child Family History Problem Relation Name Age of Onset Lung cancer Mother Heart disease Father Prostate cancer Father Hypertension Brother Stroke Paternal Grandmother Social History Socioeconomic History Marital status: Spouse name: Not on file Number of children: Not on file Years of education: Not on file Highest education level: Not on file Occupational History Not on file Tobacco Use Smoking status: Former Current packs/day: 0.00 Types: Cigarettes Quit date: 2000 Years since quittin.2 Passive exposure: Past Smokeless tobacco: Never Vaping Use Vaping status: Never Used Substance and Sexual Activity Alcohol use: Not Currently Alcohol/week: 0.0 - 1.0 standard drinks of alcohol Drug use: Never Sexual activity: Not on file Other Topics Concern Not on file Social History Narrative Not on file Social Drivers of Health Financial Resource Strain: Not on file Food Insecurity: No Food Insecurity (08/03/2023) [facility] Within the past 12 months we worried whether our food would run out before we got money to buy more.: Never True Within the past 12 months the food we bought just didn't last and we didn't have money to get more.: Never True Transportation Needs: Not on file Physical Activity: Not on file Stress: Not on file Social Connections: Not on file Intimate Partner Violence: Not on file Housing Stability: Not on file I have reviewed and reconciled the history and medication list with the patient today. REVIEW OF SYMPTOMS: Review of Systems Constitutional: Negative. Negative for appetite change, chills, fatigue and fever. HENT: Negative. Negative for congestion, ear discharge, ear pain, postnasal drip, rhinorrhea, sinus pressure, sinus pain, sneezing, sore throat and trouble swallowing. Eyes: Negative. Negative for visual disturbance. Respiratory: Negative for cough, shortness of breath and wheezing. Cardiovascular: Negative. Negative for chest pain, palpitations and leg swelling. Gastrointestinal: Negative. Negative for abdominal distention, abdominal pain, blood in stool, diarrhea, nausea and vomiting. Genitourinary: Negative. Negative for decreased urine volume, difficulty urinating, dysuria, flank pain, frequency, hematuria and urgency. Musculoskeletal: Positive for back pain (shoots down her legs and hips). Negative for arthralgias, myalgias and neck pain. Skin: Negative. Negative for rash. Neurological: Negative for dizziness, tremors, weakness, light-headedness and headaches. Psychiatric/Behavioral: Negative. Negative for confusion, decreased concentration, self-injury and sleep disturbance. The patient is not nervous/anxious and is not hyperactive. Hematological: Negative. Negative for adenopathy. Does not bruise/bleed easily. Endocrine: Negative. Negative for polydipsia and polyphagia. Allergic/Immunologic: Negative for environmental allergies, food allergies and immunocompromised state. OBJECTIVE: 02/13/2024 8:55 AM 04/09/2024 8:19 AM 05/26/2024 3:34 PM 06/08/2024 2:54 PM 07/06/2024 2:46 PM 07/26/2024 8:34 AM 08/20/2024 8:36 AM Vitals BMI 23.15 kg/m2 23.83 kg/m2 23.4 kg/m2 23.4 kg/m2 23.86 kg/m2 BSA (m2) 1.74 m2 1.75 m2 1.75 m2 1.75 m2 1.77 m2 Systolic 132 130 110 124 Diastolic 72 84 76 90 Heart Rate 76 76 88 92 Height (in) 5' 6 5' 5.5 5' 6 5' 6 Weight (lb) 143.4 145.4 145 145 147.8 Visit Report Report Report Report Report Report Report Physical Exam Vitals and nursing note reviewed. Constitutional: General: She is not in acute distress. Appearance: Normal appearance. She is not ill-appearing, toxic-appearing or diaphoretic. HENT: Head: Normocephalic. Mouth/Throat: Mouth: Mucous membranes are moist. Cardiovascular: Rate and Rhythm: Normal rate and regular rhythm. Pulses: Normal pulses. Heart sounds: Normal heart sounds. No murmur heard. No friction rub. No gallop. Pulmonary: Effort: Pulmonary effort is normal. No respiratory distress. Breath sounds: Normal breath sounds. No wheezing, rhonchi or rales. Abdominal: General: Bowel sounds are normal. There is no distension. Palpations: Abdomen is soft. Tenderness: There is no abdominal tenderness. Musculoskeletal: General: Tenderness (right piriformis area and right lumbar spine) present. No swelling or deformity. Normal range of motion. Cervical back: Normal range of motion and neck supple. Skin: General: Skin is warm and dry. Capillary Refill: Capillary refill takes less than 2 seconds. Findings: No bruising or erythema. Neurological: General: No focal deficit present. Mental Status: She is alert and oriented to person, place, and time. Mental status is at baseline. Motor: No weakness. Gait: Gait normal. Psychiatric: Mood and Affect: Mood normal. Behavior: Behavior normal. Thought Content: Thought content normal. Judgment: Judgment normal. ASSESSMENT AND PLAN: Assessment/Plan Diagnoses and all orders for this visit: Back pain of lumbar region with sciatica Discussed the pain in her hips is stemming from her lower back. Will get imaging. Will start oral steroid. Patient has had this in the past and has done well. Discussed it can make more hyper and hungry, can elevate sugars, can bother stomach -so take it with food, Do not take Motrin, Aleve or Advil while on Prednisone. Tylenol is ok to take. Will start a low dose tizanidine to help relax the piriformis muscles, start with 2 mg to see how you feel, increase if ineffective. No driving while taking this med. Can cause drowsiness, dizziness, somnolence, nervousness, and sleep disturbance. Can use heat or ice. Will refer to PT. Pending imaging, may need ortho. Can use otc lidocaine patch as well as directed. PVU. - XR lumbar spine 4+ views w flexion extension; Future - predniSONE (Deltasone) 10 MG tablet; Take 4 tablets (40 mg) by mouth Daily for 3 days, THEN 3 tablets (30 mg) Daily for 3 days, THEN 2 tablets (20 mg) Daily for 3 days, THEN 1 tablet (10 mg) Daily for 3 days. - tiZANidine (Zanaflex) 4 MG tablet; Take 1 tablet (4 mg) by mouth 3 (three) times a day as needed for muscle spasms for up to 10 days - Ambulatory referral to Physical Therapy; Future - ketorolac (Toradol) injection 60 mg Cervical radiculopathy Improving. Following with PT. Acute pain of right shoulder Improving. Following with PT. Atrial fibrillation, unspecified type (CMS/HCC) Stable since ablation. HR RRR in office. 30 minutes spent reviewing chart, discussing symptoms, assessing, med adm, orders, education, and documentation. Follow up in 2-3 weeks if not improving or sooner if worsening. documented in this encounter [facility] 07-28-2024 History of Presen t illness Narrative Images from the original note were not included. Physical Therapy Physical Therapy Evaluation Visit Patient Name: Vero Vincent Today's Date: 07/28/2024 Encounter Diagnoses Name Primary? Acute pain of right shoulder Yes Cervical radiculopathy Visit number: 1 Subjective Vero Vincent 73 y.o. female presents to physical therapy w/ chief c/o R shoulder and R side neck pain with s/s to hand at times Mechanism of Onset: no known ROSALVA or cause, started ~2 months ago, hx of neck issues in the past remembers getting traction on neck years ago and some hx of stiff/painful neck. Current deficits: Pain, decreased ROM at neck and shoulder, increased tone/tension R UT, R UE radicular like s/s, weakness Pain: mild at rest, mod to severe with movement/use Location: R neck/Upper trap, sup/lateral shoulder down lateral delt mostly but does report s/s down to her hand at times burning Aggravating Factors: looking and tilting head right, rasing arm towards overhead, out to side and behind back, ADLs/self care, sleep Relieving factors: rest, heat Imaging: X-ray of shoulder only to date Occupation: retired Precautions: Impingement with potential RTC strain, Cervical radiculopathy, trigger pt R UT Objective Significant increased tension and tone of R UT vs L with trigger pt present. Posture: mild FW head, rounded shoulders increased thoracic kyphosis Neck AROM: Ext min loss, flex= WNL, R rot- 45 degrees ERP and R UE radicular like s/s, R SB min loss but ERP and R UE radicular likes s/s. L rotation WFL. R shoulder AROM: flex to 120, abd to 90, IR/EXT to R SI jt severe ERP with all, ER WNL. MMT R elbow WNL, shoulder abd and flex 3-/5, IR= 4/5 painful, ER=4-/5 painful + impingement testing and empty can R shoulder Quick DASH= 65% impaired at IE Treatment Interventions Education: HEP education with demonstration with handout and review, Educated on Eval Findings and POC, heat use, tens use x 10 min self care/home maintenance Manual Therapy: STM/massage, trigger pt release R UT, SO release, manual cervical traction, PROM/gentle stretching R shoulder x 20 min total traction tolerated well at neck, most of time spent on C-spine, ~5 min on shoulder poor tolerance, pain with gentle distraction as well, likely guarding. Therapeutic Exercise: per ALEJANDRO grid, ROM, flexibility, strength, postural correction/endurance as able x 15 min sup, fair tolerance great difficulty with shoulder ALEJANDRO due to pain and limited ROM Modalities: MHP/ESU R neck and shoulder x 12 min hi-sweep for pain and muscle tension. Add mechanical Traction prn Assessment/Plan R shoulder pain, neck pain with radicular s/s into R UE, decreased ROM, decreased flexibility, weakness causing greatly increased difficulty with Adls/self care, sleep issues and decreased QOL Patient Goals Short Term Goal #1: pt will demo cervical mobility grossly WNL pain free all planes Short Term Goal #2: pt will no longer c/o R UE radicular like s/s Short Term Goal #3: pt will demo R shoulder mobility grossly WNL all planes pain free Short Term Goal #4: pt will be ind with HEP for neck and R UE and able to avoid futher imaging/intervention at DC from PT Pt will benefit from skilled PT to address the above impairments for 2-3x/week for 6-8 weeks pending pt needs/progress and insurance approval I hereby deem this POC medically necessary. Please sign below. Date: documented in this encounter [facility] 07-06-2024 History of Presen t illness Narrative Images from the original note were not included. Subjective Patient ID: Vero Vincent is a 73 y.o. female who presents for Follow-up (Established pt presents today for 1 month right foot pain fuv. Pt relates some improvement. States it is better. Still has some pain in the medial midfoot, but not as bad. SS: 8.5). HPI Established patient returns to clinic for follow up evaluation of suspected posterior tibial tendinitis, spring ligament tenderness and sinus tarsi notice of the right foot in the setting of pes planovalgus instability. Overall she continues to make improvement. She is using the ASO brace most days. She is doing range of motion and strengthening exercises at home on her own. Review of Systems Constitutional: Positive for activity change. Negative for appetite change. Respiratory: Negative for chest tightness and shortness of breath. Cardiovascular: Negative for chest pain. Musculoskeletal: Positive for arthralgias and gait problem. Skin: Negative for color change and wound. Neurological: Negative for weakness and numbness. Psychiatric/Behavioral: Negative for agitation and behavioral problems. Hematological: Does not bruise/bleed easily. Endocrine: Negative for cold intolerance and heat intolerance. Allergic/Immunologic: Negative for immunocompromised state. Past medical History Past Medical History: Diagnosis Date Asthma ([facility]) Atrial fibrillation ([facility]) BPPV (benign paroxysmal positional vertigo), right 12/01/2023 Hyperthyroidism ([facility]) Internal derangement of right knee 10/21/2023 Migraine ([facility]) Osteoporosis ([facility]) Renal stone Medications Current Outpatient Medications: albuterol HFA 90 mcg/act inhaler, , Disp: , Rfl: Azelastine HCl 137 MCG/SPRAY solution, , Disp: , Rfl: b complex vitamins capsule, Take 1 capsule by mouth Daily, Disp: , Rfl: biotin 5000 MCG capsule, Take by mouth, Disp: , Rfl: Breyna 160-4.5 MCG/ACT inhaler, Inhale 2 puffs in the morning and 2 puffs before bedtime., Disp: , Rfl: cholecalciferol (Vitamin D-3) 50 MCG (2000 UT) capsule, Take by mouth, Disp: , Rfl: clobetasol (Temovate) 0.05 % external solution, Apply topically 2 (two) times a day, Disp: , Rfl: ezetimibe (Zetia) 10 MG tablet, Take 10 mg by mouth Daily, Disp: , Rfl: famotidine (Pepcid) 40 MG tablet, Take 40 mg by mouth at bedtime, Disp: , Rfl: fluticasone (Flonase) 50 MCG/ACT nasal spray, , Disp: , Rfl: folic acid (Folvite) 1 MG tablet, Take by mouth Daily, Disp: , Rfl: methylPREDNISolone (Medrol Dospak) 4 MG tablets, Take as directed on package., Disp: 21 tablet, Rfl: 0 minoxidil (Minoxidil for Women) 2 % external solution, Apply topically 2 (two) times a day, Disp: , Rfl: montelukast (Singulair) 10 MG tablet, Take 1 tablet (10 mg) by mouth Daily, Disp: 90 tablet, Rfl: 3 pantoprazole (Protonix) 40 MG EC tablet, Take 1 tablet (40 mg) by mouth in the morning. Take before meals. Do not crush, chew, or split.., Disp: 30 tablet, Rfl: 2 Trelegy Ellipta 100-62.5-25 MCG/ACT aerosol powder , , Disp: , Rfl: Zinc Sulfate (ZINC 15 PO), Take by mouth, Disp: , Rfl: denosumab (Prolia) 60 MG/ML solution prefilled syringe, Inject 1 mL (60 mg) under the skin 1 (one) time for 1 dose, Disp: 1 mL, Rfl: 0 Allergies Hydromorphone Past Surgical History Past Surgical History: Procedure Laterality Date APPENDECTOMY BREAST BIOPSY Right CARDIAC ELECTROPHYSIOLOGY STUDY AND ABLATION 1988 KNEE ARTHROSCOPY W/ LASER Right 2021 LITHOTRIPSY MANDIBLE SURGERY as a child Family History Family History Problem Relation Name Age of Onset Lung cancer Mother Heart disease Father Prostate cancer Father Hypertension Brother Stroke Paternal Grandmother Objective Physical Exam HENT: Head: Normocephalic and atraumatic. Cardiovascular: Pulses: Normal pulses. Pulmonary: Effort: Pulmonary effort is normal. No respiratory distress. Abdominal: Palpations: There is no mass. Musculoskeletal: Cervical back: No rigidity. Comments: Weightbearing examination reveals pes planus morphology. She is able to perform a double heel rise test. Right foot: There is still some mild tenderness at the posterior tibial tendon from the medial malleolus towards its insertion on the navicular tuberosity. She also has mild point tenderness over the spring ligament. There is no tenderness to the sinus tarsi today. Range of motion of the subtalar joint seems to be smooth, slightly limited. Muscle strength 5/5 for all quadrants with minimal tenderness along the posterior tibial tendon. Ankle dorsiflexion 0 degrees with the knee extended, flexed. Skin: Capillary Refill: Capillary refill takes less than 2 seconds. Findings: No lesion or rash. Neurological: Mental Status: She is alert. Comments: No loss of protective sensation, gross sensation intact. Psychiatric: Mood and Affect: Mood normal. Behavior: Behavior normal. Assessment/Plan ICD-10-CM 1. Posterior tibial tendinitis of right lower extremity M76.821 2. Valgus deformity, not elsewhere classified, right ankle M21.071 3. 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 Reviewed previous imaging studies. Overall she continues to make improvement on a daily basis. At this time I recommend that she continue wearing the ASO brace for heavy periods of activity or if she is going to be walking on uneven ground. I would discussed formalized physical therapy but she elects to continue with a home program focusing on range of motion and strengthening exercises. Continue daily as instructed. She has meloxicam already and I recommend taking it daily for 2-4 weeks to suppress any flare and then I recommend only taking it as needed. If she continues to have issues I discussed MRI or surgical intervention. At this time she has no interest in surgical options. For now I will see her back as needed. This note was created with the assistance of a speech recognition program. While intending to generate a timely document that accurately reflects the content of the visit, no guarantee can be provided that every grammatical or spelling mistake has been or will be identified or corrected. Thank you for your understanding. Markus Griffin DPM documented in this encounter [facility] 06-08-2024 History of Presen t illness Narrative Images from the original note were not included. Subjective Patient ID: Vero Vincent is a 73 y.o. female who presents for Foot Pain (Vero Vincent is a 73 y.o. female who presents for Right foot pain. NKI. Patient relates both sides of ankle and arch. Icing, stretching,powersteps and Tylenol prn. SS8.5). HPI Established patient presents to clinic with new concern of right ankle pain. Patient describes pain along the medial and lateral aspect of the ankle. Has been present for about a month. She denies aggravating injury or change in activity. Symptoms described as sharp, stabbing in nature. Worse when getting up from periods of rest. Also seems to bother her quite a lot with walking, standing activity. Review of Systems Constitutional: Positive for activity change. Negative for appetite change. Respiratory: Negative for chest tightness and shortness of breath. Cardiovascular: Negative for chest pain. Musculoskeletal: Positive for arthralgias and gait problem. Skin: Negative for color change and wound. Neurological: Negative for weakness and numbness. Psychiatric/Behavioral: Negative for agitation and behavioral problems. Hematological: Does not bruise/bleed easily. Endocrine: Negative for cold intolerance and heat intolerance. Allergic/Immunologic: Negative for immunocompromised state. Past medical History Past Medical History: Diagnosis Date Asthma (CMS/HCC) Atrial fibrillation (CMS/HCC) BPPV (benign paroxysmal positional vertigo), right 12/01/2023 Hyperthyroidism ([facility]/HCC) Internal derangement of right knee 10/21/2023 Migraine ([facility]/HCC) Osteoporosis ([facility]) Renal stone Medications Current Outpatient Medications: albuterol HFA 90 mcg/act inhaler, , Disp: , Rfl: Azelastine HCl 137 MCG/SPRAY solution, , Disp: , Rfl: b complex vitamins capsule, Take 1 capsule by mouth Daily, Disp: , Rfl: biotin 5000 MCG capsule, Take by mouth, Disp: , Rfl: Breyna 160-4.5 MCG/ACT inhaler, Inhale 2 puffs in the morning and 2 puffs before bedtime., Disp: , Rfl: cholecalciferol (Vitamin D-3) 50 MCG (2000 UT) capsule, Take by mouth, Disp: , Rfl: clobetasol (Temovate) 0.05 % external solution, Apply topically 2 (two) times a day, Disp: , Rfl: denosumab (Prolia) 60 MG/ML solution prefilled syringe, Inject 1 mL (60 mg) under the skin 1 (one) time for 1 dose, Disp: 1 mL, Rfl: 0 ezetimibe (Zetia) 10 MG tablet, Take 10 mg by mouth Daily, Disp: , Rfl: famotidine (Pepcid) 40 MG tablet, Take 40 mg by mouth at bedtime, Disp: , Rfl: fluticasone (Flonase) 50 MCG/ACT nasal spray, , Disp: , Rfl: folic acid (Folvite) 1 MG tablet, Take by mouth Daily, Disp: , Rfl: meloxicam (Mobic) 15 MG tablet, Take 1 tablet (15 mg) by mouth Daily for 21 days, Disp: 21 tablet, Rfl: 0 methylPREDNISolone (Medrol Dospak) 4 MG tablets, Take as directed on package., Disp: 21 tablet, Rfl: 0 minoxidil (Minoxidil for Women) 2 % external solution, Apply topically 2 (two) times a day, Disp: , Rfl: montelukast (Singulair) 10 MG tablet, Take 1 tablet (10 mg) by mouth Daily, Disp: 90 tablet, Rfl: 3 pantoprazole (Protonix) 40 MG EC tablet, Take 1 tablet (40 mg) by mouth in the morning. Take before meals. Do not crush, chew, or split.., Disp: 30 tablet, Rfl: 2 Trelegy Ellipta 100-62.5-25 MCG/ACT aerosol powder , , Disp: , Rfl: Zinc Sulfate (ZINC 15 PO), Take by mouth, Disp: , Rfl: Allergies Hydromorphone Past Surgical History Past Surgical History: Procedure Laterality Date APPENDECTOMY BREAST BIOPSY Right CARDIAC ELECTROPHYSIOLOGY STUDY AND ABLATION 1988 KNEE ARTHROSCOPY W/ LASER Right 2021 LITHOTRIPSY MANDIBLE SURGERY as a child Family History Family History Problem Relation Name Age of Onset Lung cancer Mother Heart disease Father Prostate cancer Father Hypertension Brother Stroke Paternal Grandmother Objective Physical Exam HENT: Head: Normocephalic and atraumatic. Cardiovascular: Pulses: Normal pulses. Pulmonary: Effort: Pulmonary effort is normal. No respiratory distress. Abdominal: Palpations: There is no mass. Musculoskeletal: Cervical back: No rigidity. Comments: Weightbearing examination reveals pes planus morphology. She is able to perform a double heel rise test. Right foot: Isolated and maximal tenderness at the posterior tibial tendon from the medial malleolus towards its insertion on the navicular tuberosity. She also has exquisite point tenderness over the spring ligament. There is tenderness to palpation within the sinus tarsi as well. Range of motion of the subtalar joint seems to be smooth, slightly limited and painful with forced eversion. Muscle strength 5/5 for all quadrants with mild tenderness along the posterior tibial tendon. Ankle dorsiflexion 0 degrees with the knee extended, flexed. Skin: Capillary Refill: Capillary refill takes less than 2 seconds. Findings: No lesion or rash. Neurological: Mental Status: She is alert. Comments: No loss of protective sensation, gross sensation intact. Psychiatric: Mood and Affect: Mood normal. Behavior: Behavior normal. XR foot 3+ views right Imaging Result: AP, lateral oblique, lateral views are weight-bearing. Decreased calcaneal inclination, increased talar declination. Decreased bone mineral density. Approximately 40 percent talar head uncoverage. No fractures or dislocations noted. There is some joint space narrowing and subchondral sclerosis of the posterior subtalar joint. Small enthesophyte at the insertion of the plantar fascia. Assessment/Plan ICD-10-CM 1. Posterior tibial tendinitis of right lower extremity M76.821 XR foot 3+ views right meloxicam (Mobic) 15 MG tablet methylPREDNISolone (Medrol Dospak) 4 MG tablets 2. 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 Valgus deformity, not elsewhere classified, right ankle M21.071 XR foot 3+ views right 4. 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 Difficulty walking R26.2 Patient was examined and evaluated. 3 views of the affected foot were taken in office today and I discussed my findings. Patient has pes planovalgus deformity which seems to be leading to the symptomatology consistent with posterior tibial tendinitis, spring ligament synovitis as well as sinus tarsi notice. Causes and treatment options for progressive flatfoot deformity were discussed in detail. I have recommended orthotic therapy to help control the foot structure and reduced valgus stresses across the midfoot. Patient already uses power step orthotics and I recommend that she continue to use these daily. Avoid barefoot walking. I have recommended an ASO brace for stabilization and limitation of motion of the ankle and rearfoot. Patient agreed and was fitted for the appropriate brace. Goals of therapy include prevent further injury, reduced valgus instability of the hindfoot into increased ability to a hypermobile foot. Anticipated time of use - indefinite. At the time of dispensing it is suitable and not substandard. Patient is able to apply the brace independently. It is comfortable to walk and fits inside the shoe. I also discussed surgical reconstruction if conservative care is unsuccessful. Lastly I recommended an anti-inflammatory regimen consisting of a Medrol Dosepak in 3 weeks of meloxicam. Prescriptions were sent to her pharmacy. Take as directed. Follow up 1 month. If she continues to have issues consider cortisone injection to the sinus tarsi. This note was created with the assistance of a speech recognition program. While intending to generate a timely document that accurately reflects the content of the visit, no guarantee can be provided that every grammatical or spelling mistake has been or will be identified or corrected. Thank you for your understanding. Markus Griffin DPM documented in this encounter [facility] 05-26-2024 History of Presen t illness Narrative Images from the original note were not included. Vero Vincent is a 73 y.o. female presents with chief complaint of Injections (Prolia injection) HPI: HPI As above. She is doing well, no chest pain or pressure. No palpitations. No joint pain other than her left wrist and foot. She follows with Dr. Griffin. No dental pain or tooth problems. She has no SE. SUBJECTIVE: MEDICATIONS: Current Outpatient Medications Medication Instructions albuterol HFA 90 mcg/act inhaler Azelastine HCl 137 MCG/SPRAY solution b complex vitamins capsule 1 capsule, Daily biotin 5000 MCG capsule Take by mouth Breyna 160-4.5 MCG/ACT inhaler 2 puffs, 2 times daily cholecalciferol (Vitamin D-3) 50 MCG (1999 UT) capsule Take by mouth clobetasol (Temovate) 0.05 % external solution 2 times daily ezetimibe (ZETIA) 10 mg, Daily famotidine (PEPCID) 40 mg, Nightly fluticasone (Flonase) 50 MCG/ACT nasal spray folic acid (Folvite) 1 MG tablet Daily minoxidil (Minoxidil for Women) 2 % external solution 2 times daily montelukast (SINGULAIR) 10 mg, Oral, Daily pantoprazole (PROTONIX) 40 mg, Oral, Daily before breakfast, Do not crush, chew, or split. Prolia 60 mg, Subcutaneous, Once Trelegy Ellipta 100-62.5-25 MCG/ACT aerosol powder Zinc Sulfate (ZINC 15 PO) Take by mouth ALLERGIES: Allergies Allergen Reactions Hydromorphone Itching History: Past Medical History: Diagnosis Date Asthma (CMS/HCC) Atrial fibrillation (CMS/HCC) Hyperthyroidism (CMS/HCC) Internal derangement of right knee 10/21/2023 Migraine (CMS/HCC) Osteoporosis (CMS/HCC) Renal stone Past Surgical History: Procedure Laterality Date APPENDECTOMY BREAST BIOPSY Right CARDIAC ELECTROPHYSIOLOGY STUDY AND ABLATION 1988 KNEE ARTHROSCOPY W/ LASER Right 2021 LITHOTRIPSY MANDIBLE SURGERY as a child Family History Problem Relation Name Age of Onset Lung cancer Mother Heart disease Father Prostate cancer Father Hypertension Brother Stroke Paternal Grandmother Social History Socioeconomic History Marital status: Spouse name: Not on file Number of children: Not on file Years of education: Not on file Highest education level: Not on file Occupational History Not on file Tobacco Use Smoking status: Former Current packs/day: 0.00 Types: Cigarettes Quit date: 2000 Years since quittin.0 Passive exposure: Past Smokeless tobacco: Never Vaping Use Vaping status: Never Used Substance and Sexual Activity Alcohol use: Not Currently Alcohol/week: 0.0 - 1.0 standard drinks of alcohol Drug use: Never Sexual activity: Not on file Other Topics Concern Not on file Social History Narrative Not on file Social Drivers of Health Financial Resource Strain: Not on file Food Insecurity: No Food Insecurity (08/03/2023) Received from [employer], [employer] Hunger Screening Within the past 12 months we worried whether our food would run out before we got money to buy more.: Never True Within the past 12 months the food we bought just didn't last and we didn't have money to get more.: Never True Transportation Needs: Not on file Physical Activity: Not on file Stress: Not on file Social Connections: Not on file Intimate Partner Violence: Not on file Housing Stability: Not on file I have reviewed and reconciled the history and medication list with the patient today. REVIEW OF SYMPTOMS: Review of Systems Constitutional: Negative. Negative for appetite change, chills, fatigue and fever. HENT: Negative. Negative for congestion, ear discharge, ear pain, postnasal drip, rhinorrhea, sinus pressure, sinus pain, sneezing, sore throat and trouble swallowing. Eyes: Negative. Negative for visual disturbance. Respiratory: Negative for cough, shortness of breath and wheezing. Cardiovascular: Negative. Negative for chest pain, palpitations and leg swelling. Gastrointestinal: Negative. Negative for abdominal distention, abdominal pain, blood in stool, diarrhea, nausea and vomiting. Genitourinary: Negative. Negative for decreased urine volume, difficulty urinating, dysuria, flank pain, frequency, hematuria and urgency. Musculoskeletal: Negative. Negative for arthralgias (foot and hand), myalgias and neck pain. Skin: Negative. Negative for rash. Neurological: Negative for dizziness, tremors, weakness, light-headedness and headaches. Psychiatric/Behavioral: Negative. Negative for confusion, decreased concentration, self-injury and sleep disturbance. The patient is not nervous/anxious and is not hyperactive. Hematological: Negative. Negative for adenopathy. Does not bruise/bleed easily. Endocrine: Negative. Negative for polydipsia and polyphagia. Allergic/Immunologic: Negative for environmental allergies, food allergies and immunocompromised state. OBJECTIVE: 04/23/2022 12:00 PM 10/24/2023 8:14 AM 11/26/2023 2:50 PM 12/17/2023 10:13 AM 02/13/2024 8:55 AM 04/09/2024 8:19 AM 05/26/2024 3:34 PM Vitals BMI 22.27 kg/m2 22.98 kg/m2 23.15 kg/m2 23.15 kg/m2 23.15 kg/m2 23.83 kg/m2 BSA (m2) 1.71 m2 1.73 m2 1.74 m2 1.74 m2 1.74 m2 1.75 m2 Systolic 114 146 132 130 Diastolic 80 72 72 84 Heart Rate 76 93 76 76 SpO2 98 % Height (in) 5' 6 5' 6 5' 6 5' 6 5' 5.5 Weight (lb) 138 142.4 143.4 143.4 143.4 145.4 Visit Report Report Report Report Report Report Physical Exam Vitals and nursing note reviewed. Constitutional: General: She is not in acute distress. Appearance: Normal appearance. She is not ill-appearing, toxic-appearing or diaphoretic. HENT: Head: Normocephalic. Mouth/Throat: Mouth: Mucous membranes are moist. No injury or oral lesions. Dentition: Normal dentition. Does not have dentures. No dental tenderness, gingival swelling, dental caries, dental abscesses or gum lesions. Cardiovascular: Rate and Rhythm: Normal rate and regular rhythm. Pulses: Normal pulses. Heart sounds: Normal heart sounds. No murmur heard. No friction rub. No gallop. Pulmonary: Effort: Pulmonary effort is normal. No respiratory distress. Breath sounds: Normal breath sounds. No wheezing, rhonchi or rales. Abdominal: General: Bowel sounds are normal. There is no distension. Palpations: Abdomen is soft. Tenderness: There is no abdominal tenderness. Musculoskeletal: General: No swelling or deformity. Normal range of motion. Cervical back: Normal range of motion and neck supple. Skin: General: Skin is warm and dry. Capillary Refill: Capillary refill takes less than 2 seconds. Findings: No bruising or erythema. Neurological: General: No focal deficit present. Mental Status: She is alert and oriented to person, place, and time. Mental status is at baseline. Motor: No weakness. Gait: Gait normal. Psychiatric: Mood and Affect: Mood normal. Behavior: Behavior normal. Thought Content: Thought content normal. Judgment: Judgment normal. ASSESSMENT AND PLAN: Assessment/Plan Diagnoses and all orders for this visit: Age-related osteoporosis without current pathological fracture ([facility]) Discussed Prolia and side effects. She denies any palpitations, chest pain or pressure, muscle cramps, or dental problems. She is tolerating the medication well. Will give in office and place order for calcium in 6 months for next injection. She would like to go to [facility] for future injections as it is more cost effective. - denosumab (Prolia) injection 60 mg Atrial fibrillation, unspecified type ([facility]) Follow up at least yearly for wellness and PRN. documented in this encounter [facility] 05-20-2024 Telephone encounter Note Patient called and requests a script for prolia be sent to the [facility]. [facility] 05-20-2024 Miscellaneous Notes Patient called and requests a script for prolia be sent to the [facility]. documented in this encounter [facility] 04-12-2024 History of Presen t illness Narrative CALCIUM LAB RESULT SCANNED INTO MEDIA documented in this encounter [facility] 04-09-2024 History of Presen t illness Narrative Images from the original note were not included. Vero Vincent is a 73 y.o. female presents with chief complaint of Medicare Annual Wellness Visit Subsequent HPI: HPI As above. She did just move 10 days ago. Her plantar fascitis is flared and she sees Dr. Griffin for this. She is also due for her Prolia injection. She does see dermatology for her hair loss. She sees the dentist every 6 months and she sees the eye doctor yearly. She did a repeat cologuard and it was negative per patient. SUBJECTIVE: MEDICATIONS: Current Outpatient Medications Medication Instructions albuterol HFA 90 mcg/act inhaler inhale 2 puffs by mouth and INTO THE LUNGS every 4 hours if needed Azelastine HCl 137 MCG/SPRAY solution instill 2 sprays into each nostril twice a day b complex vitamins capsule 1 capsule, Daily biotin 5000 MCG capsule Take by mouth Breyna 160-4.5 MCG/ACT inhaler 2 puffs, 2 times daily cholecalciferol (Vitamin D-3) 50 MCG (2000 UT) capsule Take by mouth clobetasol (Temovate) 0.05 % external solution 2 times daily denosumab (Prolia) 60 MG/ML solution prefilled syringe Every 6 months ezetimibe (ZETIA) 10 mg, Daily famotidine (PEPCID) 40 mg, Nightly fluticasone (Flonase) 50 MCG/ACT nasal spray instill 2 sprays into each nostril twice a day folic acid (Folvite) 1 MG tablet Daily minoxidil (Minoxidil for Women) 2 % external solution 2 times daily montelukast (SINGULAIR) 10 mg, Daily pantoprazole (PROTONIX) 40 mg, Oral, Daily before breakfast, Do not crush, chew, or split. Trelegy Ellipta 100-62.5-25 MCG/ACT aerosol powder inhale 1 puff by mouth and INTO THE LUNGS once daily Zinc Sulfate (ZINC 15 PO) Take by mouth ALLERGIES: Allergies Allergen Reactions Hydromorphone Itching History: Past Medical History: Diagnosis Date Asthma (CMS/HCC) Atrial fibrillation (CMS/HCC) Hyperthyroidism (CMS/HCC) Internal derangement of right knee 10/21/2023 Migraine (CMS/HCC) Osteoporosis (CMS/HCC) Renal stone Past Surgical History: Procedure Laterality Date APPENDECTOMY BREAST BIOPSY Right CARDIAC ELECTROPHYSIOLOGY STUDY AND ABLATION 1988 KNEE ARTHROSCOPY W/ LASER Right 2021 LITHOTRIPSY MANDIBLE SURGERY as a child Family History Problem Relation Name Age of Onset Lung cancer Mother Heart disease Father Prostate cancer Father Hypertension Brother Stroke Paternal Grandmother Social History Socioeconomic History Marital status: Spouse name: Not on file Number of children: Not on file Years of education: Not on file Highest education level: Not on file Occupational History Not on file Tobacco Use Smoking status: Former Current packs/day: 0.00 Types: Cigarettes Quit date: 2000 Years since quittin.9 Passive exposure: Past Smokeless tobacco: Never Vaping Use Vaping status: Never Used Substance and Sexual Activity Alcohol use: Not Currently Alcohol/week: 0.0 - 1.0 standard drinks of alcohol Drug use: Never Sexual activity: Not on file Other Topics Concern Not on file Social History Narrative Not on file Social Drivers of Health Financial Resource Strain: Not on file Food Insecurity: No Food Insecurity (08/03/2023) Received from [employer], [employer] Hunger Screening Within the past 12 months we worried whether our food would run out before we got money to buy more.: Never True Within the past 12 months the food we bought just didn't last and we didn't have money to get more.: Never True Transportation Needs: Not on file Physical Activity: Not on file Stress: Not on file Social Connections: Not on file Intimate Partner Violence: Not on file Housing Stability: Not on file Over the past 2 weeks, how often have you been bothered by any of the following problems? Little interest or pleasure in doing things: Not at all Feeling down, depressed, or hopeless: Not at all Patient Health Questionnaire-2 Score: 0 Peters Fall Risk History of Falling, Immediate or Within 3 Months: No Secondary Diagnosis: No Ambulatory Aid: Walks without aid/bedrest/nurse assist Intravenous Therapy/Heparin Lock: No Gait/Transferring: Normal/bedrest/immobile Mental Status: Oriented to own ability Peters Fall Risk Score: 0 Health Risk Assessment Form Do you need help eating, bathing, using the toilet, dressing, or getting around your home?: No Can you prepare your own meals?: Yes Can you do your own housework without help?: Yes Can you shop for groceries or clothes without help?: Yes Do you exercise for about 20 minutes 3 or more days a week?: Yes How confident are you that you can control and manage most of your health problems?: Very confident Can you mange your money, credit cards and accounts, pay bills and taxes?: Yes Cognitive Screening Three Word Registration: [place]en [place] Clock Drawing: Normal Clock - 2 Three Word Recall: All 3 words correct - 3 Total Score (0-5 Points): 5 Pain Assessment Pain Score: 4 I have reviewed and reconciled the history and medication list with the patient today. REVIEW OF SYMPTOMS: Review of Systems Constitutional: Negative. Negative for fatigue and fever. HENT: Negative. Negative for congestion, ear discharge, ear pain, postnasal drip, rhinorrhea, sinus pressure, sinus pain, sneezing, sore throat and trouble swallowing. Eyes: Negative. Respiratory: Negative for cough, shortness of breath and wheezing. Cardiovascular: Negative. Negative for chest pain, palpitations and leg swelling. Gastrointestinal: Negative. Negative for abdominal distention, abdominal pain, blood in stool, diarrhea and nausea. Genitourinary: Negative. Musculoskeletal: Negative. Skin: Negative. Negative for rash. Neurological: Negative. Psychiatric/Behavioral: Negative. OBJECTIVE: 02/13/2022 12:00 PM 03/13/2022 12:00 PM 04/23/2022 12:00 PM 10/24/2023 8:14 AM 11/26/2023 2:50 PM 12/17/2023 10:13 AM 02/13/2024 8:55 AM Vitals BMI 22.27 kg/m2 22.27 kg/m2 22.27 kg/m2 22.98 kg/m2 23.15 kg/m2 23.15 kg/m2 23.15 kg/m2 BSA (m2) 1.71 m2 1.71 m2 1.71 m2 1.73 m2 1.74 m2 1.74 m2 1.74 m2 Systolic 114 146 Diastolic 80 72 Heart Rate 76 93 SpO2 98 % Height (in) 5' 6 5' 6 5' 6 5' 6 5' 6 5' 6 Weight (lb) 138 138 138 142.4 143.4 143.4 143.4 Visit Report Report Report Report Report Physical Exam Vitals and nursing note reviewed. Constitutional: General: She is not in acute distress. Appearance: Normal appearance. She is normal weight. She is not ill-appearing, toxic-appearing or diaphoretic. HENT: Head: Normocephalic and atraumatic. Right Ear: Tympanic membrane, ear canal and external ear normal. Left Ear: Tympanic membrane, ear canal and external ear normal. Nose: Nose normal. No congestion or rhinorrhea. Mouth/Throat: Mouth: Mucous membranes are moist. Pharynx: Oropharynx is clear. No oropharyngeal exudate or posterior oropharyngeal erythema. Eyes: Extraocular Movements: Extraocular movements intact. Conjunctiva/sclera: Conjunctivae normal. Pupils: Pupils are equal, round, and reactive to light. Neck: Vascular: No carotid bruit. Cardiovascular: Rate and Rhythm: Normal rate and regular rhythm. Pulses: Normal pulses. Heart sounds: Normal heart sounds. No murmur heard. No friction rub. No gallop. Pulmonary: Effort: Pulmonary effort is normal. No respiratory distress. Breath sounds: Normal breath sounds. No wheezing, rhonchi or rales. Chest: Chest wall: No tenderness. Abdominal: General: Bowel sounds are normal. There is no distension. Palpations: Abdomen is soft. Tenderness: There is no guarding. Musculoskeletal: General: No swelling or deformity. Normal range of motion. Cervical back: Normal range of motion and neck supple. Lymphadenopathy: Cervical: No cervical adenopathy. Skin: General: Skin is warm and dry. Capillary Refill: Capillary refill takes less than 2 seconds. Findings: No bruising, lesion or rash. Neurological: General: No focal deficit present. Mental Status: She is alert and oriented to person, place, and time. Mental status is at baseline. Motor: No weakness. Gait: Gait normal. Psychiatric: Mood and Affect: Mood normal. Behavior: Behavior normal. Thought Content: Thought content normal. Judgment: Judgment normal. ASSESSMENT AND PLAN: Assessment/Plan Diagnoses and all orders for this visit: Medicare annual wellness visit, subsequent Discussed height, weight and BMI. Encouraged healthy diet and regular exercise. Discussed vaccines and encouraged yearly flu shot. Reviewed preventative wellness plan with patient and discussed in detail. Scanned into chart. Updated patient problem list and reviewed all current medications with patient. Given time to ask questions. Other thrombophilia (CMS/HCC) Hx of afib with ablations, no longer on anticoagulation so this is stable. Atrial fibrillation, unspecified type (CMS/HCC) Stable since ablation. Not on anticoagulation. Primary insomnia Tylenol PM helps. Discussed trying melatonin 1-10mg an hour before she is ready for sleep. Eliminate blue light and read or do puzzles to shut down mentally. Atherosclerosis of aorta (CMS/HCC) Cholesterol and BP are controlled. Asthma, unspecified asthma severity, unspecified whether complicated, unspecified whether persistent (CMS/HCC) Controlled with allergy control. Has not needed her inhalers in months. - montelukast (Singulair) 10 MG tablet; Take 1 tablet (10 mg) by mouth Daily Mixed hyperlipidemia (CMS/HCC) Controlled with diet and zetia. Hyperthyroidism (CMS/HCC) Controlled. TSH and T3 are normal. Migraine without status migrainosus, not intractable, unspecified migraine type (CMS/HCC) Stable. Palpitations Occasional, watch caffeine intake and get adequate sleep. Gastroesophageal reflux disease without esophagitis Controlled on pantoprazole and famotidine. GERD handout provided. - pantoprazole (Protonix) 40 MG EC tablet; Take 1 tablet (40 mg) by mouth in the morning. Take before meals. Do not crush, chew, or split.. Renal stone Had lithotripsy. Age-related osteoporosis without current pathological fracture (CMS/HCC) On Prolia. Due. Will get calcium level and send orders to [facility]. - Calcium; Future Spondylosis Stable. Myalgia Stable. Positive colorectal cancer screening using Cologuard test Per pt, she took another cologuard which came back negative. BPPV (benign paroxysmal positional vertigo), right Stable, had PT and has been stable. Occipital tendonitis Stable. No current issues. Seasonal allergies - montelukast (Singulair) 10 MG tablet; Take 1 tablet (10 mg) by mouth Daily Plantar fasciitis Follows with podiatry. Will start oral steroid. Patient has had this in the past and has done well. Discussed it can make more hyper and hungry, can elevate sugars, can bother stomach -so take it with food, Do not take Motrin, Aleeve or Advil while on Prednisone. Tylenol is ok to take. - predniSONE (Deltasone) 10 MG tablet; Take 4 tablets (40 mg) by mouth Daily for 3 days, THEN 3 tablets (30 mg) Daily for 3 days, THEN 2 tablets (20 mg) Daily for 3 days, THEN 1 tablet (10 mg) Daily for 3 days. Postmenopausal - Calcium; Future Encounter for screening mammogram for malignant neoplasm of breast - Bilateral screening mammogram with tomosynthesis; Future Follow up at least yearly in Mar for wellness, will do lab work in December. documented in this encounter [facility] 03-04-2024 Telephone encounter Note I called and notified pt [facility] 03-04-2024 Miscellaneous Notes I called and notified pt Thyroid panel and t3 ordered I called pt and notified her. Pt wants to have her thyroid checked also. I explained that she already had thyroid labs done in September and insurance may not cover unless there have been a problem with that. Pt is still asking for thyroid labs also It looks like the only lab not gotten in the last year is her lipid panel. Insurance only covers them yearly except for certain abnormalities so it looks like everything I would check has been done already. The lipid panel is a fasting lab and I will put it in so she can get that at her leisure. Pt is scheduled 04/05 for MAW, would like labs ordered beforehand so she can come a week ahead to do please. documented in this encounter [facility] 03-04-2024 Telephone encounter Note Thyroid panel and t3 ordered [facility] 03-04-2024 Telephone encounter Note I called pt and notified her. Pt wants to have her thyroid checked also. I explained that she already had thyroid labs done in September and insurance may not cover unless there have been a problem with that. Pt is still asking for thyroid labs also [facility] 03-03-2024 Telephone encounter Note It looks like the only lab not gotten in the last year is her lipid panel. Insurance only covers them yearly except for certain abnormalities so it looks like everything I would check has been done already. The lipid panel is a fasting lab and I will put it in so she can get that at her leisure. [facility] 02-26-2024 Telephone encounter Note Pt is scheduled 04/05 for MAWV, would like labs ordered beforehand so she can come a week ahead to do please. [facility] 02-13-2024 History of Presen t illness Narrative Images from the original note were not included. Subjective Patient ID: Vero Vincent is a 73 y.o. female who presents for Follow-up (Established pt presents today for 6 week fuv of right heel/achilles pain. Pt relates symptoms remain largely unchanged, still having pain, pain is worst at night. ). HPI Established patient returns to clinic for follow up evaluation of right foot pain. Patient states that her foot was improving somewhat when on the oral medications. Symptoms were much improved but after stopping the medication they returned to baseline. She continues to have pain on a daily basis. She states that she is doing a lot of walking because she is getting ready to move. Review of Systems Constitutional: Positive for activity change. Negative for appetite change. Respiratory: Negative for chest tightness and shortness of breath. Cardiovascular: Negative for chest pain. Musculoskeletal: Positive for arthralgias and gait problem. Skin: Negative for color change and wound. Neurological: Negative for weakness and numbness. Psychiatric/Behavioral: Negative for agitation and behavioral problems. Hematological: Does not bruise/bleed easily. Endocrine: Negative for cold intolerance and heat intolerance. Allergic/Immunologic: Negative for immunocompromised state. Past medical History Past Medical History: Diagnosis Date Asthma ([facility]) Atrial fibrillation ([facility] Hyperthyroidism ([facility]) Internal derangement of right knee 10/21/2023 Migraine ([facility]) Osteoporosis ([facility]) Renal stone Medications Current Outpatient Medications: albuterol HFA 90 mcg/act inhaler, inhale 2 puffs by mouth and INTO THE LUNGS every 4 hours if needed, Disp: , Rfl: Azelastine HCl 137 MCG/SPRAY solution, instill 2 sprays into each nostril twice a day, Disp: , Rfl: b complex vitamins capsule, Take 1 capsule by mouth Daily, Disp: , Rfl: biotin 5000 MCG capsule, Take by mouth, Disp: , Rfl: Breyna 160-4.5 MCG/ACT inhaler, Inhale 2 puffs in the morning and 2 puffs before bedtime., Disp: , Rfl: cholecalciferol (Vitamin D-3) 50 MCG (1999 UT) capsule, Take by mouth, Disp: , Rfl: clobetasol (Temovate) 0.05 % external solution, Apply topically 2 (two) times a day, Disp: , Rfl: denosumab (Prolia) 60 MG/ML solution prefilled syringe, every 6 months, Disp: , Rfl: dexAMETHasone (Decadron) 2 MG tablet, Take 2 mg by mouth in the morning., Disp: , Rfl: ezetimibe (Zetia) 10 MG tablet, Take 10 mg by mouth Daily, Disp: , Rfl: famotidine (Pepcid) 40 MG tablet, Take 40 mg by mouth at bedtime, Disp: , Rfl: fluticasone (Flonase) 50 MCG/ACT nasal spray, instill 2 sprays into each nostril twice a day, Disp: , Rfl: folic acid (Folvite) 1 MG tablet, Take by mouth Daily, Disp: , Rfl: minoxidil (Minoxidil for Women) 2 % external solution, Apply topically 2 (two) times a day, Disp: , Rfl: montelukast (Singulair) 10 MG tablet, Take 10 mg by mouth Daily, Disp: , Rfl: pantoprazole (Protonix) 40 MG EC tablet, Take 1 tablet (40 mg) by mouth in the morning. Take before meals. Do not crush, chew, or split.., Disp: 30 tablet, Rfl: 2 Trelegy Ellipta 100-62.5-25 MCG/ACT aerosol powder , inhale 1 puff by mouth and INTO THE LUNGS once daily, Disp: , Rfl: Zinc Sulfate (ZINC 15 PO), Take by mouth, Disp: , Rfl: meloxicam (Mobic) 15 MG tablet, Take 1 tablet (15 mg) by mouth Daily for 21 days, Disp: 21 tablet, Rfl: 0 methylPREDNISolone (Medrol Dospak) 4 MG tablets, Take as directed on package. (Patient not taking: Reported on 02/13/2024), Disp: 21 tablet, Rfl: 0 predniSONE (Deltasone) 10 MG tablet, Take twice daily for 5 days, then take once daily for 5 days., Disp: 15 tablet, Rfl: 0 Allergies Hydromorphone Past Surgical History Past Surgical History: Procedure Laterality Date APPENDECTOMY BREAST BIOPSY Right CARDIAC ELECTROPHYSIOLOGY STUDY AND ABLATION 1988 KNEE ARTHROSCOPY W/ LASER Right 2021 LITHOTRIPSY MANDIBLE SURGERY as a child Family History Family History Problem Relation Name Age of Onset Lung cancer Mother Heart disease Father Prostate cancer Father Hypertension Brother Stroke Paternal Grandmother Objective Physical Exam HENT: Head: Normocephalic and atraumatic. Cardiovascular: Pulses: Normal pulses. Pulmonary: Effort: Pulmonary effort is normal. No respiratory distress. Abdominal: Palpations: There is no mass. Musculoskeletal: Cervical back: No rigidity. Comments: Weightbearing examination reveals pes planus morphology. She is able to perform a double heel rise test. Right foot: There is continued isolated and maximal tenderness at the medial calcaneal tubercle. Weakly positive heel squeeze test. Muscle strength 5/5 for all quadrants without tenderness. Ankle dorsiflexion 0 degrees with the knee extended, flexed. Skin: Capillary Refill: Capillary refill takes less than 2 seconds. Findings: No lesion or rash. Neurological: Mental Status: She is alert. Comments: No loss of protective sensation, gross sensation intact. Psychiatric: Mood and Affect: Mood normal. Behavior: Behavior normal. Assessment/Plan ICD-10-CM 1. Plantar fasciitis M72.2 meloxicam (Mobic) 15 MG tablet predniSONE (Deltasone) 10 MG tablet 2. Right foot pain M79.671 3. Equinus contracture of right ankle M24.571 Patient was examined and evaluated. I reviewed previous imaging studies in detail and discussed my findings. Symptoms still seem to be consistent with plantar fasciitis. She had temporary improvement while on the oral medications but after stopping the oral medications her symptoms worsened. I discussed treatment options going forward including cortisone injection versus repeating the oral regimen. Today she would like to repeat the oral anti-inflammatories. I will do a 10 daily prednisone taper followed by 3 weeks of meloxicam. Prescription sent to her pharmacy. She will continue home stretching program. She will continue use of power step orthotics and avoid barefoot walking. Follow up 6 weeks. Consider cortisone injection if she is still having a lot of issues at that time. This note was created with the assistance of a speech recognition program. While intending to generate a timely document that accurately reflects the content of the visit, no guarantee can be provided that every grammatical or spelling mistake has been or will be identified or corrected. Thank you for your understanding. Markus Griffin DPM documented in this encounter [facility] 07-07-2022 Evaluation note Encounter Date Diagnosis Assessment Notes Jun, Contact with and (suspected) exposure to other viral communicable diseases (ICD-10 - Z20.828) Jun, COVID-19 (ICD-10 - U07.1) Discharge Instructions for COVID-19 (Suspected or Confirmed ) material was printed Drink plenty fluids, get plenty of rest. Take Tylenol or Motrin as needed for aches pains or fevers. You must quarantine for 5 days after the onset of your symptoms of COVID. Follow-up with your family physician if no improvement in 2 to 3 days. [facility] Other Evaluation note* Diagnosis Screening for cholesterol level- Primary documented in this encounter [facility] HealthcareEvaluation note* Diagnosis Telogen effluvium- Primary documented in this encounter [facility]Evaluation note* Diagnosis Medicare annual wellness visit, subsequent- Primary Other thrombophilia ([facility]/HCC) Atrial fibrillation, unspecified type ([facility]/HCC) Primary insomnia Persistent disorder of initiating or maintaining sleep Atherosclerosis of aorta ([facility]/HCC) Atherosclerosis of aorta Asthma, unspecified asthma severity, unspecified whether complicated, unspecified whether persistent ([facility]/HCC) Mixed hyperlipidemia ([facility]/HCC) Mixed hyperlipidemia Hyperthyroidism ([facility]/HCC) Thyrotoxicosis without mention of goiter or other cause, without mention of thyrotoxic crisis or storm Migraine without status migrainosus, not intractable, unspecified migraine type ([facility]/HCC) Palpitations Gastroesophageal reflux disease without esophagitis Esophageal reflux Renal stone Calculus of kidney Age-related osteoporosis without current pathological fracture ([facility]/HCC) Spondylosis Spondylosis of unspecified site without mention of myelopathy Myalgia Unspecified myalgia and myositis Positive colorectal cancer screening using Cologuard test BPPV (benign paroxysmal positional vertigo), right Occipital tendonitis Seasonal allergies Allergic rhinitis, cause unspecified Plantar fasciitis Plantar fascial fibromatosis Postmenopausal Asymptomatic postmenopausal status (age-related) (natural) Encounter for screening mammogram for malignant neoplasm of breast documented in this encounter [facility] HealthcareEvaluation note* Diagnosis Plantar fasciitis- Primary Plantar fascial fibromatosis Right foot pain Pain in soft tissues of limb Equinus contracture of right ankle documented in this encounter [facility]* Diagnosis Age-related osteoporosis without current pathological fracture ([facility]/HCC)- Primary documented in this encounter [facility]* Diagnosis Age-related osteoporosis without current pathological fracture ([facility]/HCC)- Primary Atrial fibrillation, unspecified type ([facility]) documented in this encounter [facility]* Diagnosis Posterior tibial tendinitis of right lower extremity- Primary Sinus tarsi syndrome of right foot Valgus deformity, not elsewhere classified, right ankle Instability of right ankle joint Difficulty walking Difficulty in walking documented in this encounter [facility]* Diagnosis Senile osteoporosis- Primary documented in this encounter [facility]* Diagnosis Posterior tibial tendinitis of right lower extremity- Primary Valgus deformity, not elsewhere classified, right ankle Instability of right ankle joint documented in this encounter [facility]* Diagnosis Gastroesophageal reflux disease without esophagitis Esophageal reflux documented in this encounter [facility]* Diagnosis Acute pain of right shoulder- Primary Cervical radiculopathy Brachial neuritis or radiculitis nos documented in this encounter [facility] note* Diagnosis Acute pain of right shoulder- Primary Cervical radiculopathy Brachial neuritis or radiculitis nos documented in this encounter [facility]Evaluation note* Diagnosis Back pain of lumbar region with sciatica- Primary Cervical radiculopathy Brachial neuritis or radiculitis nos Acute pain of right shoulder Atrial fibrillation, unspecified type (CMS/HCC) documented in this encounter [facility] HealthcareEvaluation note* Diagnosis Acute right flank pain- Primary Abnormal x-ray Other nonspecific (abnormal) findings on radiological and other examinations of body structure documented in this encounter [facility]Evaluation note* Diagnosis Lumbar radiculopathy, acute- Primary documented in this encounter [facility] HealthcareEvaluation note* Diagnosis Lumbar radiculopathy, acute- Primary documented in this encounter [facility] note* Diagnosis Lumbar radiculopathy, acute- Primary documented in this encounter [facility]Evaluation note* Diagnosis Lumbar radiculopathy, acute- Primary documented in this encounter [facility]Evaluation note* Diagnosis Lumbar radiculopathy, acute- Primary documented in this encounter [facility]Evaluation note* Diagnosis Lumbar radiculopathy, acute- Primary documented in this encounter [facility] note* Diagnosis Lumbar radiculopathy, acute- Primary documented in this encounter [facility] HealthcareEvaluation note* Diagnosis Atherosclerosis of arteries- Primary Atherosclerosis of other specified arteries Atherosclerosis of aorta (CMS/HCC) Atherosclerosis of aorta Elevated lipoprotein(a) (CMS/HCC) Other disorders of lipoid metabolism Atrial fibrillation, unspecified type (CMS/HCC) Age-related osteoporosis without current pathological fracture (CMS/HCC) Lumbar radiculopathy, acute Interstitial pulmonary disease, unspecified documented in this encounter [facility] HealthcareEvaluation note* Diagnosis Senile osteoporosis- Primary [facility]* Diagnosis Encounter for preprocedural laboratory examination documented in this encounter [facility] note* Diagnosis Senile osteoporosis- Primary documented in this encounter [facility] SystemHistory general Narrative - Reported* Type Description Date Surgical History appendectomy Surgical History heart ablation Surgical History jaws were broken, on purpose Surgical History right knee arthroscopy Hospitalization History see above [facility] Other InstructionsNot on filedocumented in this encounter [facility] filedocumented in this [facility] for [facility]arrative* Rehabilitation - Outpatient (Routine) - Pending Review Specialty Diagnoses / Procedures Referred By Contac t Referred To Contact Physical Therapy Diagnoses Acute pain of right shoulder Procedures OK OFFICE/OUTPATIENT NEW HIGH MDM 60 MINUTES Pump, Michelle, CHILD DEVELOPMENT SPECIALIST [address] [facility] [place] [address] Phone: tel: fax: Cora Smith, PT [address] [place] [address] Phone: tel: fax: Referral ID Status Reason Start Date Expiration Date Visits Requested Visits Authorized [id number] Pending Review Specialty Services Required 07/26/2024 01/22/2025 1 1 [facility] HealthcareReason for visit Narrative* Rehabilitation - Outpatient (Routine) - Authorized Specialty Diagnoses / Procedures Referred By Contac t Referred To Contact Physical Therapy Diagnoses Acute pain of right shoulder Procedures OK OFFICE/OUTPATIENT NEW HIGH MDM 60 MINUTES Pump, Michelle, CHILD DEVELOPMENT SPECIALIST [address] [place] [address] Phone: tel: fax: Cora Smith, PT [address] [place] [address] Phone: tel: fax: Referral ID Status Reason Start Date Expiration Date Visits Requested Visits Authorized [id number] Authorized Specialty Services Required 07/28/2024 09/08/2024 12 12 [facility] HealthcareReason for visit Narrative* Rehabilitation - Outpatient (Routine) - Pending Review Specialty Diagnoses / Procedures Referred By Contac t Referred To Contact Physical Therapy Diagnoses Back pain of lumbar region with sciatica Procedures OK OFFICE/OUTPATIENT NEW HIGH MDM 60 MINUTES Pump, Michelle, CHILD DEVELOPMENT SPECIALIST [address] [place] [address] Phone: tel: fax: Cora Smith, PT [address] [place] [address] Phone: tel: fax: Referral ID Status Reason Start Date Expiration Date Visits Requested Visits Authorized [id number] Pending Review Specialty Services Required 08/20/2024 02/16/2025 10 10 [facility]Reason for [facility] Narrative* Rehabilitation - Outpatient (Routine) - Authorized Specialty Diagnoses / Procedures Referred By Contac t Referred To Contact Physical Therapy Diagnoses Back pain of lumbar region with sciatica Procedures OK OFFICE/OUTPATIENT NEW HIGH MDM 60 MINUTES Pump, Michelle, CHILD DEVELOPMENT SPECIALIST [address] [place] [address] Phone: tel: fax: Cora Smith, PT [address] [place] [address] Phone: tel: fax: Referral ID Status Reason Start Date Expiration Date Visits Requested Visits Authorized [id number] Authorized Specialty Services Required 08/30/2024 10/11/2024 12 12 [facility] HealthcareReason for [facility] Narrative* Rehabilitation - Outpatient (Routine) - Closed Specialty Diagnoses / Procedures Referred By Contac t Referred To Contact Physical Therapy Diagnoses Back pain of lumbar region with sciatica Procedures OK OFFICE/OUTPATIENT NEW HIGH MDM 60 MINUTES Pump, Michelle, CHILD DEVELOPMENT SPECIALIST [address] [place] [address] Phone: tel: fax: Cora Smith, PT [address] [place] [address] Phone: tel: fax: Referral ID Status Reason Start Date Expiration Date V isits Requested Visits Authorized [id number] Closed Specialty Services Required 08/30/2024 10/11/2024 12 12 [facility] Summary Purpose Family History No Family History Records FoundNo Family History Records FoundNo Family History Records FoundNo Family History Records Found Advance Directives No Advanced Directives Records FoundNo Advanced Directives Records FoundNo Advanced Directives Records FoundNo Advanced Directives Records Found Additional Source Comments INFORMATION SOURCE (unrecogn ized section and content) DATE CREATED AUTHOR 10/23/2020 [facility] DATE CREATED AUTHOR AUTHOR'S ORGANIZ ATION 02/22/2022 [facility] dical Specialist DATE CREATED AUTHOR AUTHOR'S ORGANIZ ATION 10/13/2024 [facility] dical Specialists EPIC DATE CREATED AUTHOR AUTHOR'S ORGANIZ ATION 01/04/2025 [facility] REASON FOR VISIT (unrecogniz ed section and content) Reason Comments [place] [facility] Reason Comments Follow-up Established pt prese nts today for 6 week fuv of right heel/achilles pain. Pt relates symptoms remain largely unchanged, still having pain, pain is worst at night. Reason Comments Injections Prolia injection Reason Comments Foot Pain Vero Vincent i s a 73 y.o. female who presents for Right foot pain. NKI. Patient relates both sides of ankle and arch. Icing, stretching,powersteps and Tylenol prn. SS8.5 Reason Comments Follow-up Established pt prese nts today for 1 month right foot pain fuv. Pt relates some improvement. States it is better. Still has some pain in the medial midfoot, but not as bad. SS: 8.5 Reason Comments Back Pain Pt started PT on her neck and arm. Pt woke up Friday and her hips felt off. Pt states pain is worsening. Pt has bilateral hip and back pain that is radiating down bilateral legs. Pt denies numbness or tingling. Pt states sitting feels better. Reason Comments Results Pt is here to discus s labs and possible statin medication Reason Comments Injection Specialty Diagnoses / Procedures Referred By Champ couch Referred To Contact Diagnoses Senile osteoporosis Procedures OK DENOSUMAB INJECTION Nay Gonzalez APRN-PATROL POLICE SERGEANT [address] [place] [address] Phone: tel: fax: Nay Gonzalez APRN-PATROL POLICE SERGEANT [address] [place] [address] Phone: tel: fax: Referral ID Status Reason Start Date Expiration Date V isits Requested Visits Authorized [id number] Authorized 12/02/2024 12/02/2025 2 2 Care Teams (unrecognized sec tion and content) Customer Service Trainer Relationship Specialty Start Date End Date Nancy Marquez MD [address] [place] [address] PCP - General Family Medicine 10/24/23 PumpMichelle CHILD DEVELOPMENT SPECIALIST [address] [place] [address] Family Medicine 10/24/23 Customer Service Trainer Relationship Specialty Start Date End Date Nancy Marquez MD [address] [place] [address] PCP - General Family Medicine 10/24/23 PumpMichelle CHILD DEVELOPMENT SPECIALIST [address] [place] [address] Family Medicine 10/24/23 Customer Service Trainer Relationship Specialty Start Date End Date Nancy Marquez MD [address] [place] [address] PCP - General Family Medicine 10/24/23 PumpMichelle CHILD DEVELOPMENT SPECIALIST [address] [place] [address] Family Medicine 10/24/23 Customer Service Trainer Relationship Specialty Start Date End Date Nancy Marquez MD [address] [place] [address] PCP - General Family Medicine 10/24/23 PumpMichelle CHILD DEVELOPMENT SPECIALIST [address] [place] [address] Family Medicine 10/24/23 Customer Service Trainer Relationship Specialty Start Date End Date Nancy Marquez MD [address] [place] [address] PCP - General Family Medicine 10/24/23 Pump, Michelle, CHILD DEVELOPMENT SPECIALIST [address] [place] [address] Family Medicine 10/24/23 Customer Service Trainer Relationship Specialty Start Date End Date Nancy Marquez MD [address] [place] [address] PCP - General Family Medicine 10/24/23 Pump, Michelle, CHILD DEVELOPMENT SPECIALIST [address] [place] [address] Family Medicine 10/24/23 Customer Service Trainer Relationship Specialty Start Date End Date WonderNancy still MD [address] [place] [address] PCP - General Family Medicine 10/24/23 PumpMichelle CHILD DEVELOPMENT SPECIALIST [address] [place] [address] Family Medicine 10/24/23 Customer Service Trainer Relationship Specialty Start Date End Date Nancy Marquez MD [address] [place] [address] PCP - General Family Medicine 10/24/23 PumpMichelle, CHILD DEVELOPMENT SPECIALIST [address] [place] [address] Family Medicine 10/24/23 Customer Service Trainer Relationship Specialty Start Date End Date Nancy Marquez MD [address] [place] [address] PCP - General Family Medicine 10/24/23 PumpMichelle, CHILD DEVELOPMENT SPECIALIST [address] [place] [address] Family Medicine 10/24/23 Customer Service Trainer Relationship Specialty Start Date End Date Nancy Marquez MD [address] [place] [address] PCP - General Family Medicine 10/24/23 Pump, Michelle, CHILD DEVELOPMENT SPECIALIST [address] [place] [address] Family Medicine 10/24/23 Customer Service Trainer Relationship Specialty Start Date End Date WonderNancy still MD [address] [place] [address] PCP - General Family Medicine 10/24/23 PumpMichelle, CHILD DEVELOPMENT SPECIALIST [address] [facility] [place] [address] Family Medicine 10/24/23 Customer Service Trainer Relationship Specialty Start Date End Date Juan Neal Jr., [address] [place] [address] PCP - General Internal Medicine 03/30/19 Customer Service Trainer Relationship Specialty Start Date End Date Nancy Marquez MD [address] [facility] [place] [address] PCP - General Family Medicine 10/24/23 Pump, Michelle, CHILD DEVELOPMENT SPECIALIST [address] [place] [address] Family Medicine 10/24/23 Customer Service Trainer Relationship Specialty Start Date End Date Nancy Marquez MD [address] [place] [address] PCP - General Family Medicine 10/24/23 Pump, Michelle, CHILD DEVELOPMENT SPECIALIST [address] [place] [address] Family Medicine 10/24/23 Customer Service Trainer Relationship Specialty Start Date End Date WonderlyNancy MD [address] [place] [address] PCP - General Family Medicine 10/24/23 PumpMichelle, CHILD DEVELOPMENT SPECIALIST [address] [facility] [place] [address] Family Medicine 10/24/23 Customer Service Trainer Relationship Specialty Start Date End Date Wonderly, Nancy Ortega MD [address] [place] [address] PCP - General Family Medicine 10/24/23 PumpMichelle CHILD DEVELOPMENT SPECIALIST [address] [facility] [place] [address] Family Medicine 10/24/23 Customer Service Trainer Relationship Specialty Start Date End Date Wonderly, Nancy Ortega MD [address] [facility] [place] [address] PCP - General Family Medicine 10/24/23 PumpMichelle, CHILD DEVELOPMENT SPECIALIST [address] [facility] [place] [address] Family Medicine 10/24/23 Customer Service Trainer Relationship Specialty Start Date End Date WonderNancy still MD [address] [facility] [place] [address] PCP - General Family Medicine 10/24/23 PumpMichelle CHILD DEVELOPMENT SPECIALIST [address] [facility] [place] [address] Family Medicine 10/24/23 Customer Service Trainer Relationship Specialty Start Date End Date WonderNancy still MD [address] [place] [address] PCP - General Family Medicine 10/24/23 PumpMichelle, CHILD DEVELOPMENT SPECIALIST [address] [place] [address] Family Medicine 10/24/23 Customer Service Trainer Relationship Specialty Start Date End Date WonderNancy still MD [address] [place] [address] PCP - General Family Medicine 10/24/23 PumpMichelle, CHILD DEVELOPMENT SPECIALIST [address] [place] [address] Family Medicine 10/24/23 Customer Service Trainer Relationship Specialty Start Date End Date WonderNancy still MD [address] [place] [address] PCP - General Family Medicine 10/24/23 PumpMichelle, CHILD DEVELOPMENT SPECIALIST [address] [place] [address] Family Medicine 10/24/23 Customer Service Trainer Relationship Specialty Start Date End Date Nancy Marquez MD [address] [place] [address] PCP - General Family Medicine 10/24/23 PumpMichelle, CHILD DEVELOPMENT SPECIALIST [address] [place] [address] Family Medicine 10/24/23 Customer Service Trainer Relationship Specialty Start Date End Date Nancy Marquez MD [address] [place] [address] PCP - General Family Medicine 10/24/23 Pump, Michelle, CHILD DEVELOPMENT SPECIALIST [address] [place] [address] Family Medicine 10/24/23 Customer Service Trainer Relationship Specialty Start Date End Date Nancy Marquez MD [address] [place] [address] PCP - General Family Medicine 10/24/23 Pump, Michelle, CHILD DEVELOPMENT SPECIALIST [address] [place] [address] Family Medicine 10/24/23 Customer Service Trainer Relationship Specialty Start Date End Date Nancy Marquez MD [address] [place] [address] PCP - General Family Medicine 10/24/23 Pump, Michelle, CHILD DEVELOPMENT SPECIALIST [address] [place] [address] Family Medicine 10/24/23 Customer Service Trainer Relationship Specialty Start Date End Date Nancy Marquez MD [address] [place] [address] PCP - General Family Medicine 10/24/23 Pump, Michelle, CHILD DEVELOPMENT SPECIALIST [address] [place] [address] Family Medicine 10/24/23 Customer Service Trainer Relationship Specialty Start Date End Date Nancy Marquez MD [address] [place] [address] PCP - General Family Medicine 10/24/23 Pump, Michelle, CHILD DEVELOPMENT SPECIALIST [address] [place] [address] Family Medicine 10/24/23 Customer Service Trainer Relationship Specialty Start Date End Date PumpMichelle [employer]LLOID MILL OPERATOR-PATROL POLICE SERGEANT [address] [place] [address] PCP - General Nurse Practitioner 04/19/24 Customer Service Trainer Relationship Specialty Start Date End Date PumpMichelle [employer]LLOID MILL OPERATOR-PATROL POLICE SERGEANT [address] [place] [address] PCP - General Nurse Practitioner 04/19/24 Customer Service Trainer Relationship Specialty Start Date End Date Nancy Marquez MD PCP - General Family Medicine 10/24/23 PumpMichelle CHILD DEVELOPMENT SPECIALIST [address] [place] [address] Family Medicine 10/24/23 Customer Service Trainer Relationship Specialty Start Date End Date Michelle Vincent COLLOID MILL OPERATOR-PATROL POLICE SERGEANT [address] [place] [address] PCP - General Nurse Practitioner 04/19/24 Customer Service Trainer Relationship Specialty Start Date End Date Michelle Vincent COLLOID MILL OPERATOR-PATROL POLICE SERGEANT [address] [place] [address] PCP - General Nurse Practitioner 04/19/24 FOR RECORDS PERTAINING TO PATIENTS WHO ARE OR HAVE BEEN ENROLLED IN A CHEMICAL DEPENDENCY/SUBSTANCEABUSE PROGRAM, SOME INFORMATION MAY BE OMITTED. This clinical summary was aggregated from multiple sources. Caution should be exercised in using it in the provision of clinical care. This summary normalizes information from multiple sources, and as a consequence, information in this document may materially change the coding, format and clinical context of patient data. In addition, data may be omitted in some cases. CLINICAL DECISIONS SHOULD BE BASED ON THE PRIMARY CLINICAL RECORDS. As It Is [facility]. provides no warranty or guarantee of the accuracy or completeness of information in this document.
== END 2025-01-31 08:18 | disposition home or self-care (01) ==
LOC: MAMMO 08:20
PROVIDERS: PCP Nurse Practitioner Family; Visit Provider Nurse Practitioner Family
DX: Z12.31 Encounter for screening mammogram for malignant neoplasm of breast (principal)
CPT/HCPCS: 77063; 77067

== ENCOUNTER 2025-02-15 09:43 | Outpatient (OUT) | payer MEDICARE, SELFPAY ==
--- OUTSIDE RECORDS SUMMARY | 2025-02-07 11:24 | XMS_ITS ---
Author Name Auto Generated Organization OHIP Support Name Relationship Address Phone COOKIE LLANOS Next of Kin Unknown [phone] ROBB LLANOSA Next of Kin Unknown [phone] ROBB LLANOSA Next of Kin Unknown [phone] ROBB LLANOSA Next of Kin Unknown [phone] ROBB LLANOSA Next of Kin Unknown [phone] VIET, COOKIE Next of Kin Unknown [phone] VIET, COOKIE Next of Kin Unknown [phone] VIET, COOKIE Next of Kin Unknown [phone] VIET, COOKIE Next of Kin Unknown [phone] VIET, COOKIE Next of Kin Unknown [phone] BENSTAN, COOKIE Next of Kin Unknown [phone] VIET, COOKIE Next of Kin Unknown [phone] BENSTAN, COOKIE Next of Kin Unknown [phone] BENSTAN, COOKIE Next of Kin Unknown [phone] BENSTAN, COOKIE Next of Kin Unknown [phone] BENSTAN, COOKIE Next of Kin Unknown [phone] BENFER, COOKIE Next of Kin Unknown [phone] BENFER, COOKIE Next of Kin Unknown [phone] BENFER, COOKIE Next of Kin Unknown [phone] BENFER, COOKIE Next of Kin Unknown [phone] BENFER, COOKIE Next of Kin Unknown [phone] COOKIE LLANOS Next of Kin Unknown [phone] COOKIE LLANOS Next of Kin Unknown [phone] COOKIE LLANOS Next of Kin Unknown [phone] COOKIE LLANOS Next of Kin Unknown [phone] COOKIE LLANOS Next of Kin Unknown [phone] COOKIE LLANOS Next of Kin Unknown [phone] COOKIE LLANOS Next of Kin Unknown [phone] Care Team Providers Care Metal Sorter Name Role Phone NOREEN GONZALEZ Referring Unavailable PUMP, HADLEY Dejesus Primary Care Unavailable RUSHERPHI Attending Unavailable RUSHER, PHI Kaur Referring Unavailable RUSHERPHI Attending Unavailable PUMP, HADLEY Attending Unavailable PUMP, HADLEY Referring Unavailable CORA SMITH Attending Unavailable PUMP, HADLEY Referring Unavailable TATELSY NEWMAN Attending Unavailable PUMP, HADLEY Referring Unavailable JEANETH BAIRD Attending Unavailable PUMP, HADLEY Referring Unavailable PUMP, HADLEY Attending Unavailable PUMP, HADLEY Referring Unavailable PUMP, HADLEY Referring Unavailable CORA SMITH Attending Unavailable PUMP, HADLEY Referring Unavailable AL GARCIA Attending Unavailable PUMP, HADLEY Referring Unavailable TATTERSELSY TRINIDAD Attending Unavailable PUMP, HADLEY Referring Unavailable PUMP, HADLEY Attending Unavailable PUMP, HADLEY Attending Unavailable TATTERSELSY TRINIDAD Attending Unavailable PUMP, HADLEY Referring Unavailable JEANETH BAIRD Attending Unavailable PUMP, HADLEY Referring Unavailable JEANETH BAIRD Attending Unavailable PUMP, HADLEY Referring Unavailable SARAHCORA CHRISTENSEN Attending Unavailable PUMP, HADLEY Referring Unavailable TATTERSALLELSY Attending Unavailable PUMP, HADLEY Referring Unavailable TATTERSELSY TRINIDAD Attending Unavailable PUMP, HADLEY Referring Unavailable JEANETH BAIRD Attending Unavailable PUMP, HADLEY Referring Unavailable JEANETH BAIRD Attending Unavailable PUMP, HADLEY Referring Unavailable JEANETH BAIRD Attending Unavailable PUMP, HADLEY Referring Unavailable PUMP, HADLEY Attending Unavailable NOREEN GONZALEZ Attending Unavailable PROBLEMS DATE TYPE CONDITION / CODE ATTENDING STATUS [facility] 04/12/2024 Unknown 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 REASON FOR EXAM: Right sided [...] report is generated using voice recognition reporting ([employer]). On occasion, Dashi Intelligencecribe erroneously drops words from the report or replaces the spoken word with a similar sounding word. Please call with any questions/concerns regarding the report. Dictated and transcribed 08/27/2024/tm This report has been electronically signed and approved by the interpreting radiologist. XR LUMBAR SPINE 4+ VIEWS WIT H FLEXION EXTENSION Observed: 08/20/2024 9:49 AM Status: F Source: [facility] EPIC EXAM: XR Lumbar Spine with F lexion Extension, Seven Views. REASON FOR EXAM: Pain [...] report is generated using voice recognition reporting ([employer]). On occasion, [employer] erroneously drops words from the report or replaces the spoken word with a similar sounding word. Please call with any questions/concerns regarding the report. Dictated and transcribed 08/20/2024/ This report has been electronically signed and approved by the interpreting radiologist. XR SHOULDER 2+ VIEWS RIGHT Observed: 02/2025 9:01 AM Status: F Source: [facility] EPIC EXAM: XR SHOULDER 2+ VIEWS R IGHT REASON FOR STUDY: Chronic right shoulder pain, [...] signed and approved by the interpreting Radiologist. ALLERGIES DATE TYPE / CODE NAME / CODE REACTION SEVERITY SOURCE 08/03/2023 DRUG INGREDI/[id number](S NOMED CT) HYDROMORPHONE Itching [facility] ENCOUNTERS ADMIT/DISCHARGE ACCOUNT NUMBER ADMITTING ENCOUNTER CLASS LOCATION SOURCE 02/07/2025/02/08/20 [id number] Ambulatory Building:[facility] 01/03/2025/01/04/20 [id number] Ambulatory Building:[facility] 10/06/2024/10/07/19 [id number] Ambulatory Building:[facility] 10/01/2024/10/02/19 25 [id number] Ambulatory Building:[facility] 09/29/2024/09/30/19 25 [id number] Ambulatory Building:[facility] 09/27/2024/09/28/19 25 [id number] Ambulatory Building:[facility] 09/23/2024/09/24/19 25 [id number] Ambulatory Building:[facility] 09/21/2024/09/22/19 25 [id number] Ambulatory Building:[facility] 09/17/2024/09/18/19 25 [id number] Ambulatory Building:[facility] 09/15/2024/09/16/19 25 [id number] Ambulatory Building:[facility] 09/13/2024/09/14/19 25 [id number] Ambulatory Building:[facility] 09/09/2024/09/10/19 25 [id number] Ambulatory Building:[facility] 09/07/2024/09/08/19 25 [id number] Ambulatory Building:[facility] 09/03/2024/09/04/19 25 [id number] Ambulatory Building:[facility] 08/30/2024/08/31/19 25 [id number] Ambulatory Building:[facility]BP [facility] EPIC 08/26/2024/08/27/19 25 [id number] Ambulatory Building:NOM SFNRCT [facility] EPIC 08/20/2024/08/21/19 25 [id number] [facility] 08/20/2024/08/21/19 25 [id number] [facility] 08/12/2024/08/13/19 25 [id number] Ambulatory Building:[facility] EPIC 08/10/2024/08/11/19 25 [id number] Ambulatory Building:[facility]BP T [facility] EPIC 07/28/2024/07/30/19 25 [id number] Ambulatory Building:[facility]BP T [facility] EPIC 07/26/2024/07/27/19 25 [id number] Ambulatory Building:FNR [facility] EPIC 07/26/2024/07/27/19 25 [id number] Ambulatory Building:FNR [facility] EPIC 07/06/2024/07/06/19 25 [id number] Ambulatory Building:FHP OD [facility] EPIC 06/08/2024/06/08/19 25 [id number] Ambulatory Building:P OD [facility] EPIC 06/08/2024/06/08/19 25 [id number] Ambulatory Building:FHP OD [facility] EPIC 05/26/2024/05/26/19 25 [id number] Ambulatory Building:FNR [facility] EPIC 04/09/2024/04/09/20 24 [id number] Ambulatory Building:R [facility] EPIC PAYERS ENCOUNTER GUARANTOR PAYER SUBSCRIBER SOURCE 02/07/2025 SILVANO FLETCHER: [place] [address]Tvi: () Primary Insurance:UNITED HEALTHCARE MEDICAREPolicy Number: [id number] Date:2024-05-19 SILVANO BONDB: [id number] [place] [address] [facility] EPIC 01/03/2025 SILVANO VINCENTDOB: V[place]Floyd [place] [address]Kfv: (HP) Primary Insurance:[facility] MEDICARE ADVANTAGE OPolicy Number: [id number] Date:2022-08-17 SILVANO VINCENTDOB: [id number] [address] [address]Oxw: (HP) () [facility] 10/06/2024 SILVANO BONDB: [place] [address]Twz: (HP) Primary Insurance:UNITED HEALTHCARE MEDICAREPolicy Number: [id number] Date:2024-05-19 SILVANO BONDB: [id number] [place] [address] [facility] EPIC 10/01/2024 SILVANO BROWNTADOB: [place] [address]Rql: (HP) Primary Insurance:UNITED HEALTHCARE MEDICAREPolicy Number: [id number] Date:2024-05-19 SILVANO VINCENTDOB: [id number] [place] [address] [facility] EPIC 09/29/2024 SILVANO BROWNTADOB: [place] [address]Eyf: (HP) Primary Insurance:UNITED HEALTHCARE MEDICAREPolicy Number: [id number] Date:2024-05-19 SILVANO BRONWTADOB: [id number] [place] [address] [facility] EPIC 09/27/2024 SILVANO BROWNTADOB: [place] [address]Dgr: (HP) Primary Insurance:UNITED HEALTHCARE MEDICAREPolicy Number: [id number] Date:2024-05-19 SILVANO BROWNTADOB: [id number] [place] [address] [facility] EPIC 09/23/2024 SILVANO BROWNTADOB: [place] [address]Vyx: (HP) Primary Insurance:UNITED HEALTHCARE MEDICAREPolicy Number: [id number] Date:2024-05-19 SILVANO VINCENTDOB: [id number] [place] [address] [facility] EPIC 09/21/2024 SILVANO VINCENTDOB: [place] [address]Mkv: (HP) Primary Insurance:UNITED HEALTHCARE MEDICAREPolicy Number: [id number] Date:2024-05-19 SILVANO VINCENTDOB: [id number] [place] [address] [facility] EPIC 09/17/2024 SILVANO BROWNTADOB: [place] [address]Ylg: (HP) Primary Insurance:UNITED HEALTHCARE MEDICAREPolicy Number: [id number] Date:2024-05-19 SILVANO BROWNTADOB: [id number] [place] [address] [facility] EPIC 09/15/2024 SILVANO BROWNTADOB: [place] [address]Tjm: (HP) Primary Insurance:UNITED HEALTHCARE MEDICAREPolicy Number: [id number] Date:2024-05-19 SILVANO BROWNTADOB: [id number] [place] [address] [facility] EPIC 09/13/2024 SILVANO BROWNTADOB: [place] [address]Nei: (HP) Primary Insurance:UNITED HEALTHCARE MEDICAREPolicy Number: [id number] Date:2024-05-19 SILVANO MATOSARATADOB: [id number] [place] [address] [facility] EPIC 09/09/2024 SILVANO BROWNTADOB: [place] [address]Zyq: (HP) Primary Insurance:UNITED HEALTHCARE MEDICAREPolicy Number: [id number] Date:2024-05-19 SILVANO BROWNTADOB: [id number] [place] [address] [facility] EPIC 09/07/2024 SILVANO BROWNTADOB: [place] [address]Ypi: (HP) Primary Insurance:UNITED HEALTHCARE MEDICAREPolicy Number: [id number] Date:2024-05-19 SILVANO BROWNTADOB: [id number] [place] [address] [facility] EPIC 09/03/2024 SILVANO MATOSARATADOB: [place] [address]Mhp: (HP) Primary Insurance:UNITED HEALTHCARE MEDICAREPolic Number: [id number] Date:2024-05-19 SILVANO BROWNTADOB: [id number] [place] [address] [facility] EPIC 08/30/2024 SILVANO BROWNTADOB: [place] [address]Fgh: (HP) Primary Insurance:UNITED HEALTHCARE MEDICAREPolicy Number: [id number] Date:2024-05-19 SILVANO BROWNTADOB: [id number] [place] [address] [facility] EPIC 08/26/2024 SILVANO BROWNTADOB: [place] [address]Dxu: (HP) Primary Insurance:UNITED HEALTHCARE MEDICAREPolicy Number: [id number] Date:2024-05-19 SILVANO BROWNTADOB: [id number] [place] [address] [facility] EPIC 08/20/2024 SILVANO BROWNTADOB: [place] [address]Cet: (HP) Primary Insurance:UNITED HEALTHCARE MEDICAREPolicy Number: [id number] Date:2024-05-19 SILVANO BROWNTADOB: [id number] [place] [address] [facility] EPIC 08/20/2024 SILVANO BROWNTADOB: [place] [address]Qxv: (HP) Primary Insurance:UNITED HEALTHCARE MEDICAREPolicy Number: [id number] Date:2024-05-19 SILVANO BROWNTADOB: [id number] [place] [address] [facility] EPIC 08/12/2024 SILVANO MATOSARATADOB: [place] [address]Tbz: (HP) Primary Insurance:UNITED HEALTHCARE MEDICAREPolicy Number: [id number] Date:2024-05-19 SILVANO MATOSARATADOB: [id number] VISH [place] [address] [facility] EPIC 08/10/2024 SILVANO MATOSARATADOB: [place] [address]Gjm: (HP) Primary Insurance:UNITED HEALTHCARE MEDICAREPolicy Number: [id number] Date:2024-05-19 SILVANO MATOSARATADOB: [id number] [place] [address] [facility] EPIC 07/28/2024 SILVANO BROWNTADOB: [place] [address]Jvf: (HP) Primary Insurance:UNITED HEALTHCARE MEDICAREPolicy Number: [id number] Date:2024-05-19 SILVANO MATOSARATADOB: [id number] [place] [address] [facility] EPIC 07/26/2024 SILVANO BROWNTADOB: [place] [address]Orc: (HP) Primary Insurance:UNITED HEALTHCARE MEDICAREPolicy Number: [id number] Date:2024-05-19 SILVANO BROWNTADOB: [id number] [place] [address] [facility] EPIC 07/26/2024 SILVANO MATOSARATADOB: [place] [address]Rzt: (HP) Primary Insurance:UNITED HEALTHCARE MEDICAREPolicy Number: [id number] Date:2024-05-19 SILVANO BROWNTADOB: [id number] [place] [address] [facility] EPIC 07/06/2024 SILVANO MATOSARATADOB: VISH [place] [address]Gkx: (HP) Primary Insurance:UNITED HEALTHCARE MEDICAREPolicy Number: [id number] Date:2024-05-19 SILVANO BROWNTADOB: [id number] [place] [address] [facility] EPIC 06/08/2024 SILVANO MATOSARATADOB: [place] [address]Gvf: (HP) Primary Insurance:UNITED HEALTHCARE MEDICAREPolicy Number: [id number] Date:2024-05-19 SILVANO BROWNTADOB: [id number] [place] [address] [facility] EPIC 06/08/2024 SILVANO BROWNTADOB: [place] [address]Vdo: (HP) Primary Insurance:UNITED HEALTHCARE MEDICAREPolicy Number: [id number] Date:2024-05-19 SILVANO BROWNTADOB: [id number] [place] [address] [facility] EPIC 05/26/2024 SILVANO MATOSARATADOB: [place] [address]Xem: (HP) Primary Insurance:UNITED HEALTHCARE MEDICAREPolicy Number: [id number] Date:2024-05-19 SILVANO BROWNTADOB: [id number] [place] [address] [facility] EPIC 04/09/2024 SILVANO MATOSARATADOB: [place] [address]Fza: (HP) Primary Insurance:UNITED HEALTHCARE MEDICAREPolicy Number: [id number] Date:2023-05-19 SILVANO VINCENTDOB: [id number] [place] [address] [facility] EPIC
--- NOTE | 2025-02-15 09:55 | MM_ITS ---
Patient Name: SILVANO VINCENT MR#: [id number] : 1950 Exam Date: 02/15/2025 Ordering Doctor: NOREEN GONZALEZ RADIOLOGY REPORT PROCEDURE: MM TOMOSYNTHESIS DIAGNOSTIC BI COMPARISON: MM TOMOSYNTHESIS SCREENING BI, 01/31/2025. MM TOMOSYNTHESIS SCREENING BI, 04/23/2023. MG MAMM SCREEN 3D BOB CAD, 08/14/2020. MG MAMM BOB SCRN W CAD DIG, 01/05/2014. INDICATIONS: Abnormal Mammogram, Calcifications, Asymmetrical Breast Calculator Name NCI Breast Cancer Risk Assessment Tool 5 Year Breast Cancer Risk 1.50% Lifetime Breast Cancer Risk 3.90% Personal Breast Cancer No Personal Ovarian Cancer No Treatments None Family Cancers None LOCATION: [facility] BREAST COMPOSITION: The breasts are heterogeneously dense, which may obscure small masses. FINDINGS: RIGHT BREAST: No significant suspicious finding. The previous area of suspected asymmetry dissipates on spot compressed views consistent with summation of fibroglandular tissue. Benign-appearing calcifications LEFT BREAST: No significant suspicious finding. Amorphous clustered microcalcifications are noted in the left breast predominately of the upper-outer quadrant. These are suspicious for malignancy. DIAGNOSTIC CATEGORY 4--SUSPICIOUS FOR MALIGNANCY. FINDING DOES NOT EXHIBIT CLASSIC FINDINGS OF BREAST CANCER: RECOMMENDATIONS: STEREOTACTIC BREAST BIOPSY: LEFT BREAST Dictated by: Derek Posadas MD on 02/15/2025 at 10:29 Approved by: Derek Posadas MD on 02/15/2025 at 10:42
== END 2025-02-15 09:44 | disposition home or self-care (01) ==
PROVIDERS: PCP Nurse Practitioner Family; Visit Provider Nurse Practitioner Family
DX: R92.8 Other abnormal and inconclusive findings on diagnostic imaging of breast (principal); R92.30 Dense breasts, unspecified; R92.1 Mammographic calcification found on diagnostic imaging of breast; N64.89 Other specified disorders of breast
CPT/HCPCS: 77066; G0279